=== PATIENT | male | born 1935 | race Caucasian/White ===

== ENCOUNTER → 2016-03-18 | Outpatient (CLI) | payer OTHER, MEDICARE | LOC: MMPC 09:00 | PROVIDERS: ATTEND Nurse Practitioner Family | DX: Z79.01 Long term (current) use of anticoagulants (principal); Z51.81 Encounter for therapeutic drug level monitoring; I26.99 Other pulmonary embolism without acute cor pulmonale | CPT/HCPCS: 85610 ==

== ENCOUNTER → 2016-03-25 | Outpatient (CLI) | payer OTHER, MEDICARE | LOC: MMPC 10:00 | PROVIDERS: ATTEND Podiatrist Foot & Ankle Surgery | DX: L84 Corns and callosities (principal); L97.522 Non-pressure chronic ulcer of other part of left foot with fat layer exposed; I73.9 Peripheral vascular disease, unspecified; M20.32 Hallux varus (acquired), left foot; E11.40 Type 2 diabetes mellitus with diabetic neuropathy, unspecified; E11.621 Type 2 diabetes mellitus with foot ulcer | CPT/HCPCS: 11055 ×2; 99212; G0463 ==

== ENCOUNTER → 2016-04-08 | Outpatient (CLI) | payer OTHER, MEDICARE | LOC: MMPC 10:00 | PROVIDERS: ATTEND Podiatrist Foot & Ankle Surgery | DX: M25.572 Pain in left ankle and joints of left foot (principal); L97.521 Non-pressure chronic ulcer of other part of left foot limited to breakdown of skin; Q66.7 Congenital pes cavus; M20.32 Hallux varus (acquired), left foot; I73.9 Peripheral vascular disease, unspecified; E11.9 Type 2 diabetes mellitus without complications | CPT/HCPCS: 99213; G0463 ==

== ENCOUNTER → 2016-04-15 | Outpatient (CLI) | payer OTHER, MEDICARE | LOC: MMPC 09:00 | PROVIDERS: ATTEND Nurse Practitioner Family | DX: Z79.01 Long term (current) use of anticoagulants (principal); Z51.81 Encounter for therapeutic drug level monitoring; I26.99 Other pulmonary embolism without acute cor pulmonale | CPT/HCPCS: 85610 ==

== ENCOUNTER → 2016-06-03 | Outpatient (CLI) | payer OTHER, MEDICARE | LOC: MMPC 10:00 | PROVIDERS: ATTEND Podiatrist Foot & Ankle Surgery | DX: E11.40 Type 2 diabetes mellitus with diabetic neuropathy, unspecified (principal); Q66.7 Congenital pes cavus; M20.42 Other hammer toe(s) (acquired), left foot; M20.41 Other hammer toe(s) (acquired), right foot; M20.30 Hallux varus (acquired), unspecified foot; L84 Corns and callosities ==

== ENCOUNTER 2016-06-07 18:05 | Emergency (ER) | payer OTHER, MEDICARE ==
[2016-06-07] MEDS ORDERED: MORPHINE SULFATE 2 MG/1 ML IVP ONE (18:29)
[2016-06-07] MEDS ORDERED: KETOROLAC 15 MG/1 ML VIAL IVP ONE (18:29)
[2016-06-07] MEDS ORDERED: NORMAL SALINE 10 ML SYRINGE FLUSH IVP PRN (18:29)
--- NOTE | 2016-06-07 18:36 | PDOC ---
Chest Pain HPI - General Chief Complaint: Chest Pain Stated Complaint: CHEST PAIN Date Seen by Provider: 06/07/16 Time Seen by Provider: 18:32 - History of Present Illness Initial Comments: Patient is a very nice 80-year-old gentleman with known history of coronary artery disease among other multiple medical issues who presents to the emergency department today complaining of an episode of sharp stabbing left- sided chest pain that occurred right under his ribs and he thinks he may have had some left-sided arm symptoms accompanied with this. This is a fairly short- lived episode and currently here he is not having substantial active chest pain unless he takes a deep breath where he can feel that pain again. He was not doing anything particularly difficult or having any substantial exertion. He had heart catheterization about 13 years ago but then again a few years ago had repeat cardiac catheterization that was still benign status post his previous stenting. He is not having really any chest pain actively here right now. He denies any substantial GERD today. - Patient Home Medications Home Medications: Home Medications Omeprazole 20 mg PO DAILY cap 06/12/14 Albuterol Sulfate [Ventolin Hfa] 1 - 2 puff INH Q4-6H #1 inhaler 09/23/14 Budesonide/Formoterol Fumarate [Symbicort] 2 puff INH BID #2 inh 03/27/15 Albuterol Sulfate 1 each NEB Q4-6H PRN #90 vial 12/31/15 Aspirin 81 mg PO DAILY tab 12/31/15 Clopidogrel Bisulfate [Plavix] 75 mg PO DAILY #90 tablet 12/31/15 Metformin HCl 1 tab PO BID #60 tab 12/31/15 Trazodone HCl 3 tab PO QHS PRN #90 tab 12/31/15 Atorvastatin Calcium 1 tab PO DAILY #30 tab 01/23/16 Collagenase Ointment [Santyl Ointment] 30 gm TOPICAL QD #1 tube 03/18/16 Warfarin Sodium 5 - 7.5 mg PO DAILY #100 tab 05/12/16 Lisinopril 2.5 mg PO DAILY 06/07/16 - Patient Allergies Allergies/Adverse Reactions: Allergies Allergy/AdvReac Type Severity Reaction Status Date / Time silver Allergy HIVES Verified 06/07/16 18:17 [From Tegaderm AG Mesh] Sulfa (Sulfonamide AdvReac Intermediate VOMITING Verified 06/07/16 18:17 Antibiotics) tape AdvReac HIVES Uncoded 06/07/16 18:17 Past Medical History - heen HEENT History: Cataracts, Other (please comment) Additional HEENT History: WEARS GLASSES Cardiovascular History: Hypertension, CAD, Hyperlipidemia Additional Cardiovasular History: CARDIAC STENTS X3 Respiratory History: Asthma, COPD, Shortness of Breath, Pneumonia, Home Oxygen Use, Other (please comment) Additional Respiratory History: IDEOPATHIC PULMONARY FIBROSIS. 2 L OCCASIONALLY Gastrointestinal History: GERD, Diverticulitis, Hiatal Hernia, Other (please comment) Additional Gastrointestinal History: COLON RESECTION IN Genitourinary History: Denies History Endocrine History: Type 2 Diabetes (oral) Musculoskeletal History: Arthritis, Back Pain, Muscle Weakness, Limited ROM, Joint Pain, Physical Limitation Prosthesis or Implant: No Additional Musculoskeletal History: RIGHT ANKLE FUSED, LEFT ACHILES TENDON TEAR. 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 History of Other Communicable Diseases: No Alcohol Use: Occasionally Substance Use Type: None Previous Surgical History: Yes Type / Date of Surgery: ankle fusioncolon resectionappendectomydiscitiscataractsLEFT ROTATOR CUFF, CHOLECYSTECTOMY, CARDIAC STENTS X3 Anesthesia Reactions: No Malignant Hyperthermia: No Significant Family History: Cancer Additional Family History: father of esophageal ca Past Medical History Reviewed: Reviewed - No Changes ROS - Limitations ROS Limitations: No Limitations Constitution: REPORTS: Denies Symptoms Respiratory: REPORTS: Denies Resp Symptoms Neurological: REPORTS: Denies Neuro Symptoms Chest Pain PE - General Appearance General Appearance: REPORTS: Alert, Cooperative, No Acute Distress - HEENT HEENT: POSITIVE: Head Inspection Nml, Eyes Inspection Nml - Neck Neck: REPORTS: Normal Inspection - Respiratory Respiratory: REPORTS: No Respiratory Distress, Breath Sounds Normal - Cardiovascular Cardiovascular: REPORTS: Regular Rate and Rhythm, Heart Sounds Normal - Abdomen Abdomen: Soft: (All Quadrants), Normal Bowel Sounds: (All Quadrants), Denies Tenderness: (All Quadrants) - Skin Skin: REPORTS: Intact, Normal For Race, Warm - Neurological / Psychological Neurological: POSITIVE: Affect Apporpriate, Oriented X3 Chest Pain Progress - Results Reviewed by me Xrays/CTs/US Reviewed by me: Yes Radiology Findings: CT scan of the chest shows no pulmonary embolism no acute infection or other concerning findings. Chest x-ray reviewed and benign Lab Results Reviewed: Yes Lab Results:: Laboratory Results 06/07/16 Range/Units 17:45 WBC 9.19 (4.8-10.8) 10^3/uL RBC 4.98 (4.70-6.10) 10^6/uL Hgb 13.4 L (14.0-18.0) g/dL Hct 40.6 L (42.0-52.0) % MCV 81.5 (80-90) FL MCH 26.9 L (27-31) PG MCHC 33.0 (33-37) g/dL RDW Std Deviation 51.1 H (39-50) fL RDW Coeff of Yasmany 17.3 H (11.5-14.5) % Plt Count 249 (140-350) 10*3/uL MPV 8.7 (7.4-12.2) FL Immature Gran % (Auto) 0.2 (0-5) % Neut % (Auto) 51.2 (50-80) % Lymph % (Auto) 34.1 (10-50) % [place] % (Auto) 10.2 (5-15) % Eos % (Auto) 3.3 (0-8) % Baso % (Auto) 1.0 (0-1) % Immature Gran # (Auto) 0.02 10*3/UL Neut # (Auto) 4.71 10*3/UL Lymph # (Auto) 3.13 10*3/uL [place] # (Auto) 0.94 H (0.3-0.8) 10*3/UL Eos # (Auto) 0.30 10*3/UL Baso # (Auto) 0.09 10*3/UL WBC Morphology Comment Normal morphology (NORM) Plt Morphology Comment Normal morphology (NORM) RBC Morph Comment Normal morphology (NORM) ESR 7 (0-15) MM/HR PT 28.1 H (9.7-11.4) secs INR 2.67 (0.00-5.90) N/A D-Dimer 1.55 H (0.00-0.59) mg/L Sodium 135 (135-145) meq/L Potassium 5.1 (3.8-5.2) meq/L Chloride 103 (98-112) meq/L Carbon Dioxide 20 L (23-33) meq/L Anion Gap 12 (5-20) BUN 28 H (7-22) mg/dL Creatinine 1.2 (0.70-1.50) mg/dL Estimated GFR (>60 ml/min/1.73m(2)) BUN/Creatinine Ratio 23.33 H (6-20) Glucose 77 L (78-110) mg/dL Calculated Osmolality 284.0 (267-292) mOsm/kg Calcium 9.2 (8.7-10.7) mg/dL Total Bilirubin 0.7 (0.3-1.2) mg/dL AST 25 (21-57) IU/L ALT 27 (21-72) IU/L Alkaline Phosphatase 62 (38-126) IU/L Troponin I < 0.012 (< 0.040) ng/mL C-Reactive Protein < 0.5 (0.0-0.9) mg/dL NT-Pro-B Natriuret Pep 106 (0-450) PG/ML Total Protein 7.2 (6.1-8.0) g/dL Albumin 3.7 (3.5-4.8) g/dL Globulin 3.5 (2.50-4.10) g/dL Albumin/Globulin Ratio 1.00 L (1.3-2.0) mg/g Lipase 98 (23-300) IU/L EKG Interpretation:: POSITIVE: Other (Sinus rhythm with bradycardia) - Patient's Progress MDM / ED Course: Patient had chest pain that was resolved by the time he got here. He had negative troponin however his d-dimer came back elevated despite being anticoagulated. His INR was normal. Ultimately CT scan of his chest was obtained which does not show any substantial cause for chest pain or pleurisy. He does have some pain with deep breathing that is persisting. It's unclear if he does have maybe some mild pleurisy or simply musculoskeletal chest pain. At any rate I don't think this is cardiac and certainly isn't pulmonary embolism. We will go ahead and let him go home and be seen in the clinic in the very near future. He also had some bradycardia down into the 40s at times while he was here and he is sent home with a Holter monitor. He believes metoprolol had recently been stopped for him and that he is not on it I've asked that he confirm that he is not on metoprolol and if he is seen to stop it. He has been a follow-up and discuss these issues with his primary care provider. Patient Care Time - Estimated PCT Patient Care Time (In Minutes): 45 Vital Signs - Recent Vital Signs Vital Signs: Vital Signs (Last 8 hours) Temp Pulse Resp BP Pulse Ox 06/07/16 18:05 97.8 F 55 L 20 155/76 95 - VS Reviewed Vital Signs Reviewed: Yes Discharge Clinical Impression: Chest wall pain, Pleurisy, Bradycardia Discharge Disposition: Discharged to Home Condition: Fair Patient Instructions Given at Discharge: Noncardiac Chest Pain (ED) Additional Instructions: Your CAT scan looked good without any evidence of blood clot. You have benign- appearing labs and I believe your chest pain is related either to nerve pinching or musculoskeletal spasm. Of note your heart rate did go down into the 40s at times while you were here in the emergency department. I would like for you to follow-up with your regular doctor and discuss this in the next few days. If you become substantially dizzy lightheaded or have other issues before this appointment do not hesitate to come back to the emergency department. Follow Up With: IRAIS MORA [Primary Care Provider] -
[2016-06-07 18:37] LABS: BASOPHILS # (AUTO) 0.09 10*3/UL; EOSINOPHILS % (AUTO) 3.3 % (0-8); HEMATOCRIT 40.6 % (42.0-52.0); HEMOGLOBIN 13.4 g/dL (14.0-18.0); LYMPHOCYTES # (AUTO) 3.13 10*3/uL; MEAN CORPUSCULAR HEMOGLOBIN 26.9 PG (27-31); MEAN CORPUSCULAR VOLUME 81.5 FL (80-90); MEAN PLATELET VOLUME 8.7 FL (7.4-12.2); MONOCYTES # (AUTO) 0.94 10*3/UL (0.3-0.8); MONOCYTES % (AUTO) 10.2 % (5-15); NEUTROPHILS # (AUTO) 4.71 10*3/UL; NEUTROPHILS % (AUTO) 51.2 % (50-80); PLATELET MORPHOLOGY COMMENT NORMAL MORPHOLOGY (NORM); RBC MORPHOLOGY COMMENT NORMAL MORPHOLOGY (NORM); RED BLOOD COUNT 4.98 10^6/uL (4.70-6.10); WBC MORPHOLOGY COMMENT NORMAL MORPHOLOGY (NORM)
[2016-06-07 18:43] VITALS: RESP 20; TEMP 97.8
[2016-06-07 18:44] LABS: BUN/CREATININE RATIO 23.33 (6-20); CALCIUM 9.2 mg/dL (8.7-10.7); SERUM ALBUMIN 3.7 g/dL (3.5-4.8)
[2016-06-07 19:32] LABS: ERYTHROCYTE SEDIMENTATION RATE 7 MM/HR (0-15)
[2016-06-07] MEDS ORDERED: Sodium Chloride 0.9% 1,000 ML PRIMARY IV ONE (19:58)
--- NOTE | 2016-06-07 21:15 | DI ---
PA /LATERAL CHEST X-RAY, 06/07/2016 6:29 PM : Clinical History: Chest pain. Previous Exam: None at this facility. There is no acute soft tissue or bony abnormality. Heart size is normal. There are either vascular ca lcifications or coronary artery stents and almost the entire length of the LAD in the proximal portio n of the left circumflex artery. Chronic bilateral infiltrates are present, unchanged from the previo us exam and these would be most consistent with chronic aspiration pneumonitis. There is centrilobula r emphysema. Mediastinal structures are normal. There are no pulmonary nodules. Readin. There are no acute infiltrates or effusions. Chronic bilateral infiltrates are present in a patte rn and appearance consistent with chronic aspiration pneumonitis. 2. Centrilobular emphysema. 3. Coronary artery disease.
--- NOTE | 2016-06-07 21:32 | DI ---
HISTORY: Acute onset chest pain and weakness. Elevated d-dimer. COMPARISON: None available. TECHNIQUE: CT angiogram of the chest was performed. The images were sent for interpretation. FINDINGS: There is calcification of the aortic knuckle. There is prominence of the pulmonary trunk. There are no focal filling defects noted within the pulmonary arteries to suggest pulmonary embolis m. There are small mediastinal lymph nodes. There is no hilar, or axillary adenopathy. There is no pleural or pericardial effusion. The trachea, main, and segmental bronchi demonstrate no endobronchial lesions. Mild irregularity of the right posterior trachea on series 4 image 39 could represent adherent mucus. There is panlobular diffuse emphysematous change. Scattered linear-appearing opacities in the right lung apex (series 4 image 20) favor atelectasis, sc arring, or fibrosis. There is diffuse thickening of the interstitium at the lung bases reminiscent of atelectasis, fibrosi s, or scarring. Evolving infection, possibly viral, could have a similar appearance, but is less favored. There is prior cholecystectomy. Limited sections of the upper abdomen demonstrate no acute findings. There is no destructive osseous abnormality. There is narrowing of the T12 vertebral body with appro ximately 60% loss of height reminiscent of a compression fracture. IMPRESSION: 1. There is calcification of the aortic knuckle. There is prominence of the pulmonary trunk. 2. There are no focal filling defects noted within the pulmonary arteries to suggest pulmonary emboli sm. 3. Mild irregularity of the right posterior trachea on series 4 image 39 could represent adherent muc us. 4. There is panlobular diffuse emphysematous change. 5. Scattered linear-appearing opacities in the right lung apex (series 4 image 20) favor atelectasis, scarring, or fibrosis. 6. Diffuse thickening of the interstitium at the lung bases reminiscent of atelectasis, fibrosis, or scarring. Evolving infection, possibly viral, could have a similar appearance, but is less favored. 7. Status post cholecystectomy. 8. There is narrowing of the T12 vertebral body with approximately 60% loss of height reminiscent of a compression fracture. NOTIFICATION: The above findings were phoned to EDER Landis in the ER Department on 06/07/2016 at 11:39 PM EST.
--- NOTE | 2016-06-08 09:35 | EKG ---
[address] [place] [address] Measurements Intervals [place] Rate: 55 P: -7 MI: 172 QRS: 34 QRSD: 85 T: 47 QT: 424 QTc: 412 Interpretive Statements SINUS BRADYCARDIA WITH OCCASIONAL ECTOPIC ATRIAL PREMATURE COMPLEXES Compared to ECG 03/11/2015 07:40:09 Sinus rhythm no longer present ST (T wave) deviation no longer present Electronically Signed On 06-08-16 12:02:59 MDT by Ken Carmona [email or web address]
--- NOTE | 2016-06-11 14:06 | HOLTER ---
Interpretive Statements Pushed the button, but did not return a diary. Forty eight hour holter monitor done for bradycardia. No diary was kept but patient indicated symptoms on multiple occasions. There were [id number] beats recorded, [id number] being normal. The slowest heart was 41 in late afternoon with average rate of 55 and fastest rate of 106. There were 409 PACs with 366 singlets, 15 pairs and 3 runs of ectopic atrial tachyardia to rate of 106 the longest of 7 beats. There were 371 VPCs with 362 singlets and one couplet. Computer read VT was due to artifact. The longest run of bradycardia lasted 37 minutes at rate of 41. The longest pause of 2 seconds occurred post VPC during bradycardia and was due to compensatory pause. No diagnostic ST depression was seen, however, 1mm ST elevation was seen intermittently without symptoms or relatd to heart rate. Multiple episodes of indicated symtoms by the patient were noted but not related to heart rate of pauses. IMP: Abnormal holter study with occasional PACs and VPCs with normal heart rate for age and no prolonged pauses. No correlation of indicated symptoms with heart rate. No significant pauses. No diary returned. Electronically Signed On 06-11-16 18:35:34 MDT by Ken Carmona [id number]
== END 2016-06-07 22:53 | disposition home or self-care (01) ==
LOC: ER 18:05
DX: R07.89 Other chest pain (principal); R09.1 Pleurisy; R00.1 Bradycardia, unspecified; E11.9 Type 2 diabetes mellitus without complications; J43.2 Centrilobular emphysema; I25.10 Atherosclerotic heart disease of native coronary artery without angina pectoris; Z79.01 Long term (current) use of anticoagulants
CPT/HCPCS: 71020; 71275; 80053; 83690; 83880; 84484; 85025; 85379; 85610; 85652; 86140; 93005; 93010; 93225; 93226; 93227; 96374; 99284; J1885

== ENCOUNTER → 2016-06-10 | Outpatient (CLI) | payer OTHER, MEDICARE | LOC: MMPC 09:00 | PROVIDERS: ATTEND Internal Medicine | DX: Z79.01 Long term (current) use of anticoagulants (principal); Z51.81 Encounter for therapeutic drug level monitoring; I26.99 Other pulmonary embolism without acute cor pulmonale | CPT/HCPCS: 85610 ==

== ENCOUNTER → 2016-06-28 | Outpatient (CLI) | payer OTHER, MEDICARE ==
[2016-06-28 10:17] LABS: HEMOGLOBIN A1C 5.65 % (4.2-6.0)
[2016-06-28 10:40] LABS: CREATININE, URINE 224.7 MG/DL (15-500)
[2016-06-28 10:46] LABS: BUN/CREATININE RATIO 17.5 (6-20); CALCIUM 9.4 mg/dL (8.7-10.7); CHOL/HDL RATIO 2.86 RATIO (0-4.0); LDL CHOLESTEROL,CALCULATED 54.4 mg/dL; SERUM ALBUMIN 3.6 g/dL (3.5-4.8)
== END ==
LOC: MOB LAB 09:13
PROVIDERS: ATTEND Internal Medicine
DX: E11.9 Type 2 diabetes mellitus without complications (principal); E78.5 Hyperlipidemia, unspecified; I10 Essential (primary) hypertension
CPT/HCPCS: 80053; 80061; 82043; 82550; 83036

== ENCOUNTER → 2016-06-30 | Outpatient (CLI) | payer OTHER, MEDICARE | LOC: MMPC 11:11 | PROVIDERS: ATTEND Internal Medicine | DX: J44.9 Chronic obstructive pulmonary disease, unspecified (principal); E78.5 Hyperlipidemia, unspecified; I10 Essential (primary) hypertension; Z95.5 Presence of coronary angioplasty implant and graft; Z87.39 Personal history of other diseases of the musculoskeletal system and connective tissue | CPT/HCPCS: 99214 ==

== ENCOUNTER → 2016-07-01 | Outpatient (CLI) | payer OTHER, MEDICARE ==
--- NOTE | 2016-07-01 11:46 | DI ---
MRI LUMBAR SPINE SCAN WITHOUT IV CONTRAST, 07/01/2016 9:35 AM: Clinical History: History of discitis. Previous Exam: None. Technique: Sagittal and axial T2 weighted; sagittal T1 weighted and T2 STIR; and axial PD. The lumbar vertebral bodies are of normal height and size. There is an old compression fracture of T1 2 with loss of height less than 50%. There is displacement posteriorly into the canal of the superior and posterior aspect of the T12 vertebral body. The patient is status post laminectomies from L2-L5. The L4 and L5 vertebral bodies are fused. There is disc space narrowing at all of the remaining lumb ar disc spaces, and these show desiccation change. The cord terminates at T12 and the conus medullari s is normal. The T10-11 disc space is normal. T11-12 has a bulging but not herniated disc without can al or neural foraminal stenosis. The posterior displacement of the superior and posterior aspect of T 12 does not compromise the canal diameter. T12-L1 and L1-2 disc spaces are normal. L2-3 and L3-4 have circumferentially bulging but not herniated discs without canal or neural foraminal stenosis. Both l evels show degenerative arthritic changes of the apophyseal joints. The L4-5 disc space shows no sánchez l or neural foraminal stenosis. Both apophyseal joints are fused. L5-S1 has a circumferentially bulgi ng but not herniated disc. There is no canal stenosis or left neural foraminal stenosis. There is rig ht neural foraminal stenosis but the nerve root still exits appropriately. The nerve roots between th e L1-2 disc space to the L5 vertebral body are in an abnormal position. This is suspicious for arachn oiditis. Readin. Status post laminectomies from L2-L5 with anterior fusion at L4-5. 2. There are bulging but not herniated discs without canal or significant neural foraminal stenosis at T11-12, L2-3, and L5-S1. There is no canal or neural foraminal stenosis at L4-5. 3. 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 4. The T10-11 and T12-L1 and L1-2 disc spaces are normal.
== END ==
LOC: MRI 09:28
PROVIDERS: ATTEND Internal Medicine
DX: Z87.39 Personal history of other diseases of the musculoskeletal system and connective tissue (principal); M47.815 Spondylosis without myelopathy or radiculopathy, thoracolumbar region; M47.817 Spondylosis without myelopathy or radiculopathy, lumbosacral region
CPT/HCPCS: 72148

== ENCOUNTER → 2016-07-07 | Outpatient (CLI) | payer OTHER, MEDICARE | LOC: MMPC 10:00 | PROVIDERS: ATTEND Physician Assistant | DX: M47.816 Spondylosis without myelopathy or radiculopathy, lumbar region (principal); M51.36 Other intervertebral disc degeneration, lumbar region; Z98.890 Other specified postprocedural states | CPT/HCPCS: 99204; G0463 ==

== ENCOUNTER → 2016-07-08 | Outpatient (CLI) | payer OTHER, MEDICARE | LOC: MMPC 09:00 | PROVIDERS: ATTEND Internal Medicine | DX: Z79.01 Long term (current) use of anticoagulants (principal); Z51.81 Encounter for therapeutic drug level monitoring; I26.99 Other pulmonary embolism without acute cor pulmonale | CPT/HCPCS: 85610 ==

== ENCOUNTER 2016-07-15 08:52 | Day surgery (SDC) | payer OTHER, MEDICARE ==
[2016-07-15] MEDS ORDERED: Iopamidol Inj 61% 50 ML VIAL IV ONE (09:00)
[2016-07-15] MEDS ORDERED: BUPivacaine Inj 0.25% PF - 10ml vial IV ONE (09:00)
[2016-07-15] MEDS ORDERED: TRIAMCINOLONE ACETONIDE 40 MG/1 ML IM ONE (09:00)
--- NOTE | 2016-07-15 10:04 | GEN.OPNOTE ---
Facet Injection Procedure: Facet Injection with Local Anesthetic and Steriod Procedure Code - Neurosurgery: 16030 : C/T Spine Facet/Med, 1st Surgeon: Yung Jasso -: Consent: Rationale for procedure, nature of procedure, possible risks and benefits were discussed with the patient. Risks including allergic reaction to medications, known effects of steroid medications including transient elevations in blood sugar with aggravation of pre-existing diabetes and remote risk of aseptic necrosis of the hip. Infection or bleeding with potential risk of neurologic injury with weakness, paralysis or were all reviewed with the patient who wished to proceed. Anesthesia, sedation: No intravenous access or sedation was used. Physiologic monitoring of pulse and oxygen saturation was utilized. Procedure: The patient was placed prone on the operating room table, prepped with Chloroprep and sterilely draped. The skin was anesthetized with 1% Buffered Xylocaine. Under fluoroscopic control a 22-gauge needle was advanced L45 facet joint on the [right]. Omnipaque was injected under real-time fluoroscopy demonstrating an facet arthrogram. Following this 1 ml of a mixture of kenalog(10mg/ml) and Ropivacaine was injected. AP and lateral images of the final needle placement was obtained. The needle was removed and the patient returned to the post procedure recovery room where they were monitored for any side effects. The same was done on the left. Pain assessment: Preprocedure pain []/10, post procedure pain []/10. Discharge instructions: Patient was given a pain log to be filled out and returned. A delayed response to the steroids of 2-5 days was discussed.
[2016-07-15 10:13] VITALS: RESP 17; TEMP 97.6
== END 2016-07-15 10:12 | disposition home or self-care (01) ==
LOC: SDSC 08:52
PROVIDERS: ATTEND Pain Medicine Interventional Pain Medicine
DX: M47.816 Spondylosis without myelopathy or radiculopathy, lumbar region (principal)
CPT/HCPCS: 76000

== ENCOUNTER → 2016-07-22 | Outpatient (CLI) | payer OTHER, MEDICARE | LOC: MMPC 09:00 | PROVIDERS: ATTEND Internal Medicine | DX: Z79.01 Long term (current) use of anticoagulants (principal); Z51.81 Encounter for therapeutic drug level monitoring; I26.99 Other pulmonary embolism without acute cor pulmonale | CPT/HCPCS: 85610 ==

== ENCOUNTER → 2016-07-29 | Outpatient (CLI) | payer OTHER, MEDICARE | LOC: MMPC 09:00 | PROVIDERS: ATTEND Internal Medicine | DX: Z79.01 Long term (current) use of anticoagulants (principal); Z51.81 Encounter for therapeutic drug level monitoring; I26.99 Other pulmonary embolism without acute cor pulmonale | CPT/HCPCS: 85610 ==

== ENCOUNTER → 2016-08-12 | Outpatient (CLI) | payer OTHER, MEDICARE | LOC: MMPC 09:00 | PROVIDERS: ATTEND Internal Medicine | DX: Z79.01 Long term (current) use of anticoagulants (principal); Z51.81 Encounter for therapeutic drug level monitoring; I26.99 Other pulmonary embolism without acute cor pulmonale | CPT/HCPCS: 85610 ==

== ENCOUNTER → 2016-08-30 | Outpatient (CLI) | payer OTHER, MEDICARE ==
[2016-08-30 19:29] LABS: HEMOGLOBIN A1C 5.43 % (4.2-6.0)
[2016-08-30 19:57] LABS: FREE T4 (FREE THYROXINE) 1.34 ng/dL (0.93-1.71)
== END ==
LOC: MOB LAB 14:24
PROVIDERS: ATTEND Internal Medicine
DX: E11.9 Type 2 diabetes mellitus without complications (principal); R63.4 Abnormal weight loss; I10 Essential (primary) hypertension; J44.9 Chronic obstructive pulmonary disease, unspecified; R42 Dizziness and giddiness; Z95.5 Presence of coronary angioplasty implant and graft; Z86.711 Personal history of pulmonary embolism
CPT/HCPCS: 36415; 83036; 84439; 84443; 86140

== ENCOUNTER → 2016-09-09 | Outpatient (CLI) | payer OTHER, MEDICARE | LOC: MMPC 09:00 | PROVIDERS: ATTEND Internal Medicine | DX: Z79.01 Long term (current) use of anticoagulants (principal); Z51.81 Encounter for therapeutic drug level monitoring; Z86.711 Personal history of pulmonary embolism | CPT/HCPCS: 85610 ==

== ENCOUNTER → 2016-09-16 | Outpatient (CLI) | payer OTHER, MEDICARE | LOC: MMPC 09:00 | PROVIDERS: ATTEND Internal Medicine | DX: Z79.01 Long term (current) use of anticoagulants (principal); Z51.81 Encounter for therapeutic drug level monitoring; Z86.711 Personal history of pulmonary embolism | CPT/HCPCS: 85610 ==

== ENCOUNTER → 2016-09-21 | Outpatient (CLI) | payer OTHER, MEDICARE | LOC: MMPC 09:00 | DX: L98.8 Other specified disorders of the skin and subcutaneous tissue (principal) | CPT/HCPCS: 99212; G0463 ==

== ENCOUNTER 2016-10-10 19:49 | Emergency (ER) | payer OTHER, MEDICARE ==
[2016-10-10] MEDS ORDERED: DIPH,PERTUSS,TET(ADACEL) VAC/PF 0.5 ML (Tdap) IM ONE (19:56)
[2016-10-10] MEDS ORDERED: ONDANSETRON 4 MG/2 ML VIAL ONE (19:56)
[2016-10-10] MEDS ORDERED: Amoxicill/Clav 875/125mg Tab 1 TAB TAB PO ONE (19:56)
[2016-10-10] MEDS ORDERED: ONDANSETRON 4 MG/2 ML VIAL IVP ONE (19:56)
[2016-10-10] MEDS ORDERED: Sodium Chloride 0.9% 1,000 ML PRIMARY IV ONE (19:56)
[2016-10-10] MEDS ORDERED: MORPHINE SULFATE 4 MG/1 ML IVP ONE (19:56)
--- NOTE | 2016-10-10 20:02 | PDOC ---
Animal Bite HPI - General Chief Complaint: Animal Bite Stated Complaint: dog bite Date Seen by Provider: 10/10/16 Time Seen by Provider: 19:58 Source: POSITIVE: Patient Exam Limitations: POSITIVE: No limitations Nurse's Notes Reviewed & Considered: Yes - History of Present Illness Initial Comments: Patient comes in complaining of dog bite to the left lower extremity. Patient got between 2 pets at home who were fighting one of which was a [place] retriever. The [place] retriever bit him on the left lower leg. There are open bites, hematomas, and oozing of blood. Patient is on Plavix and warfarin. He denies any other injuries. Injury occurred approximately 2 hours prior to presentation here in the emergency department. Have you received a tetanus shot in the past 10 years?: Unknown Body Location Affected: REPORTS: Lower Extremity (L) Timing: REPORTS: Abrupt Duration: 1-3 hours Location at Time of Onset: REPORTS: Home Severity: Moderate Quality: REPORTS: "Pain" Animal: REPORTS: Dog, Family Pet Appearance of Animal: REPORTS: Appeared Healthy Animal Immunization Status: POSITIVE: Up to Date Observation/Capture: POSITIVE: Can be Observed x 10 Days Context of Attack: REPORTS: Animals Fighting Severity of Attack: POSITIVE: Bitten, Moderate Location of Injury: POSITIVE: Left Lower Extremity Associated Symptoms: REPORTS: Denies Symptoms Any Prior Injuries Related to Current Complaint?: No - Patient Home Medications Home Medications: Home Medications Albuterol Sulfate [Ventolin Hfa] 1 - 2 puff INH Q4-6H #1 inhaler 09/23/14 Budesonide/Formoterol Fumarate [Symbicort] 2 puff INH BID #2 inh 03/27/15 Aspirin 81 mg PO DAILY tab 12/31/15 Warfarin Sodium 5 - 7.5 mg PO DAILY #100 tab 05/12/16 Albuterol Sulfate 1 each NEB Q4-6H PRN #90 vial 06/30/16 Atorvastatin Calcium 1 tab PO DAILY #90 tab 06/30/16 Budesonide/Formoterol Fumarate [Symbicort] Sample #3 06/30/16 Clopidogrel Bisulfate [Plavix] 1 tab PO DAILY #90 tablet 06/30/16 Lisinopril 1 tab PO DAILY #90 tab 06/30/16 Tizanidine HCl [Zanaflex] 1 cap PO TID PRN #90 cap 06/30/16 Trazodone HCl 3 tab PO QHS PRN #90 tab 06/30/16 Apixaban [Eliquis] Sample #1 07/12/16 - Patient Allergies Allergies/Adverse Reactions: Allergies Allergy/AdvReac Type Severity Reaction Status Date / Time silver Allergy HIVES Unverified 09/21/16 11:06 [From Tegaderm AG Mesh] Sulfa (Sulfonamide AdvReac Intermediate VOMITING Unverified 09/21/16 11:06 Antibiotics) tape AdvReac HIVES Uncoded 06/07/16 18:17 Past Medical History - heen HEENT History: Cataracts, Other (please comment) Additional HEENT History: WEARS GLASSES Cardiovascular History: Hypertension, CAD, Hyperlipidemia Additional Cardiovasular History: CARDIAC STENTS X3 Respiratory History: Asthma, COPD, Shortness of Breath, Pneumonia, Home Oxygen Use, Other (please comment) Additional Respiratory History: IDEOPATHIC PULMONARY FIBROSIS. 2 L OCCASIONALLY Gastrointestinal History: GERD, Diverticulitis, Hiatal Hernia, Other (please comment) Additional Gastrointestinal History: COLON RESECTION IN Genitourinary History: Denies History Endocrine History: Type 2 Diabetes (oral) Musculoskeletal History: Arthritis, Back Pain, Muscle Weakness, Limited ROM, Joint Pain, Physical Limitation Prosthesis or Implant: No Additional Musculoskeletal History: RIGHT ANKLE FUSED, LEFT ACHILES TENDON TEAR. 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 History of Other Communicable Diseases: No Alcohol Use: Occasionally Substance Use Type: None Previous Surgical History: Yes Type / Date of Surgery: ankle fusioncolon resectionappendectomydiscitiscataractsLEFT ROTATOR CUFF, CHOLECYSTECTOMY, CARDIAC STENTS X3 Anesthesia Reactions: No Malignant Hyperthermia: No Significant Family History: Cancer Additional Family History: father of esophageal ca ROS - Limitations ROS Limitations: No Limitations Constitution: REPORTS: Denies Symptoms Cardiovascular: REPORTS: Denies Cardiac Symptoms Respiratory: REPORTS: Denies Resp Symptoms Neurological: REPORTS: Denies Neuro Symptoms Gastrointestinal: REPORTS: Nausea Endocrine: REPORTS: Denies Symptoms Musculoskeletal: REPORTS: Lower Extremity Swelling, Muscle Aches Genitourinary: REPORTS: Denies Symptoms Eyes: REPORTS: Denies Symptoms ENT: REPORTS: Denies Symptoms Skin: REPORTS: Other (Puncture wounds left lower extremity) Lympathic: REPORTS: Denies Lympathic Symptoms Immunologic: POSITIVE: Denies Symptoms Psychiatric: POSITIVE: Denies Psych Symptoms Animal Bite Physical Exam - General Appearance General Appearance: REPORTS: Alert, Cooperative, No Acute Distress - HEENT HEENT: POSITIVE: Head Inspection Nml, Eyes Inspection Nml, Ears Inspection Nml, Nose Inspection Nml, Oral/Dental Inspect. Nml, Pharynx Inspect. Nml, PERRL, EOMI - Neck Neck: POSITIVE: Normal Inspection, No Apparent Injury - Respiratory Respiratory: POSITIVE: No Respiratory Distress, Breath Sounds Normal, Chest Non- Tender - Cardiovascular Cardiovascular: POSITIVE: Regular Rate and Rhythm, Heart Sounds Normal, Equal Pulses, Strong Pulses Peripheral Pulses: Dorsalis-pedis (L): 3+ - Chest Chest: POSITIVE: Non Tender - Abdomen Abdomen: Soft: (All Quadrants), Normal Bowel Sounds: (All Quadrants), Denies Tenderness: (All Quadrants), No Splenomegaly: (All Quadrants), No Hepatomegaly: (All Quadrants), No Guarding: (All Quadrants), No Rebound: (All Quadrants), No Palpable Pulse: (All Quadrants), No Palpabale Mass: (All Quadrants), No Distention: (All Quadrants), No Rigidity: (All Quadrants) - Back Back: POSITIVE: Normal Inspection, No Apparent Injury - Skin Skin: POSITIVE: Normal For Race, Warm, Dry, Puncture Wound (Multiple puncture wounds left lower extremity with hematoma present) - Extremities Extremity Assessment: Non-Tender: (RUE), (LUE), (RLE), Normal ROM: (ALL), No Edema: (RLE), (LUE), (RUE), Normal Inspection: (RUE), (LUE), (RLE), No Swelling : (LLE), Pelvis Stable: (ALL), Normal Tendon Exam: (ALL), Tender: (LLE), Ecchymosis: (LLE), Swelling: (LLE), Laceration: (LLE) - Neuro/Vascular/Tendon Neuro/Vascular/Tendon: 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, 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 As 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, Motor Normal , Sensation Normal, No Vascular Compromise, ROM Normal - Psych Psych: POSITIVE: Mood Appropriate, Affect Appropriate - Wound Wound General Appearance: POSITIVE: Draining, Bleeding, Unapproximated Wound Cleaning/Irrigation: POSITIVE: Saline Irrigant, Betadine Procedures - Laceration/Wound Repair Did patient have a laceration repair: Yes Site of Laceration/Wound: Left lower leg Wound Length (cm): 2.5 Wound's Depth, Shape: Into subcutaneous tissue, Irregular Time of Suture Placement:: 20:58 Distal CMS: Yes Skin Prep: Betadine Prep Local Anesthesia Used - Indicate Amt Used in Comment: Lidocaine 1% with Epinephrine: Yes Irrigated w/ Saline (mL): 250 Wound Explored: No foreign body removed Wound Debrided: Minimal Wound Repaired With: Sutures single layer Suture Size/Type: 4:0, Prolene Number of Sutures: 3 Drain Placement: No Sterile Dressing Applied?: Yes Splint Applied?: No Sling Applied?: No Procedure Note:: After obtaining informed verbal consent skin was cleansed with Hibiclens and normal saline. Wound were draped in a sterile manner and 1% lidocaine with epinephrine was infiltrated into the largest of the wounds which measured approximately 1.5 cm and into the next largest which measured 1 cm. Total of 3 interrupted sutures were placed to a large and one on the small laceration. Wounds continued to ooze due to the patient's Plavix. Bacitracin, nonstick dressing, Kerlix gauze, and Coban were applied. Patient is encouraged to return to the emergency room on Tuesday for wound evaluation. He has instructions for suture removal in 7 days. He receives a prescription for Augmentin. Animal Bite Progress - Results Reviewed by me Xrays/CTs/US Reviewed by me: Yes Discussed with Radiologist: Yes Lab Results Reviewed: Yes Lab Results:: Laboratory Results 10/10/16 Range/Units 20:03 WBC 13.13 H (4.8-10.8) 10^3/uL RBC 4.88 (4.70-6.10) 10^6/uL Hgb 13.3 L (14.0-18.0) g/dL Hct 39.9 L (42.0-52.0) % MCV 81.8 (80-90) FL MCH 27.3 (27-31) PG MCHC 33.3 (33-37) g/dL RDW Std Deviation 48.4 (39-50) fL RDW Coeff of Yasmany 16.4 H (11.5-14.5) % Plt Count 261 (140-350) 10*3/uL MPV 8.5 (7.4-12.2) FL Immature Gran % (Auto) 0.2 (0-5) % Neut % (Auto) 67.7 (50-80) % Lymph % (Auto) 18.8 (10-50) % [place] % (Auto) 10.4 (5-15) % Eos % (Auto) 2.1 (0-8) % Baso % (Auto) 0.8 (0-1) % Immature Gran # (Auto) 0.03 10*3/UL Neut # (Auto) 8.88 10*3/UL Lymph # (Auto) 2.47 10*3/uL [place] # (Auto) 1.37 H (0.3-0.8) 10*3/UL Eos # (Auto) 0.28 10*3/UL Baso # (Auto) 0.10 10*3/UL WBC Morphology Comment Normal morphology (NORM) Plt Morphology Comment Normal morphology (NORM) RBC Morph Comment Normal morphology (NORM) PT 16.9 H (9.7-11.4) secs INR 1.59 (0.00-5.90) N/A Sodium 135 (135-145) meq/L Potassium 4.9 (3.8-5.2) meq/L Chloride 105 (98-112) meq/L Carbon Dioxide 19 L (23-33) meq/L Anion Gap 11 (5-20) BUN 28 H (7-22) mg/dL Creatinine 1.2 (0.70-1.50) mg/dL Estimated GFR (>60 ml/min/1.73m(2)) BUN/Creatinine Ratio 23.33 H (6-20) Glucose 88 (78-110) mg/dL Calculated Osmolality 284.0 (267-292) mOsm/kg Calcium 9.6 (8.7-10.7) mg/dL Total Bilirubin 0.7 (0.3-1.2) mg/dL AST 26 (21-57) IU/L ALT 22 (21-72) IU/L Alkaline Phosphatase 58 (38-126) IU/L Total Protein 7.2 (6.1-8.0) g/dL Albumin 3.8 (3.5-4.8) g/dL Globulin 3.4 (2.50-4.10) g/dL Albumin/Globulin Ratio 1.10 L (1.3-2.0) mg/g - Patient's Progress Pain Medication Addressed: POSITIVE: Yes Re-examine Time: 21:00 Status: POSITIVE: Improved MDM / ED Course: Patient was examined, an IV started, blood drawn and sent to the laboratory for studies, radiographic examination was obtained. Patient received IV morphine, normal saline, and Zofran. He received a tetanus update. He also received oral Augmentin. Findings: CBC shows white count of 13. INR is 1.5. Comprehensive metabolic panel is unremarkable. X-ray of his left tib-fib shows no acute osseous abnormalities. Assessment: Dog bite lacerations with repair. For procedure note please see above dictation. Her graft plan: Discharge home, Augmentin for 7 days, continue with your home Soma and trazodone. Return to the emergency room on Tuesday for wound evaluation. Rabies Vaccine Series Implemented: No - Consult Counseled: POSITIVE: Patient, Family, RE: Lab Results, RE: Radiology Results, RE : DX, RE: Need for F/U Patient Care Time - Estimated PCT Patient Care Time (In Minutes): 45 Vital Signs - VS Reviewed Vital Signs Reviewed: Yes Discharge Clinical Impression: Animal bite wound, Dog bite - wound Discharge Disposition: Discharged to Home Condition: Stable Patient Instructions Given at Discharge: Animal Bite (ED)
[2016-10-10 20:05] LABS: BASOPHILS % (AUTO) 0.8 % (0-1); EOSINOPHILS # (AUTO) 0.28 10*3/UL; EOSINOPHILS % (AUTO) 2.1 % (0-8); HEMATOCRIT 39.9 % (42.0-52.0); HEMOGLOBIN 13.3 g/dL (14.0-18.0); LYMPHOCYTES # (AUTO) 2.47 10*3/uL; MEAN CORPUSCULAR HEMOGLOBIN 27.3 PG (27-31); MEAN CORPUSCULAR HGB CONC 33.3 g/dL (33-37); MEAN CORPUSCULAR VOLUME 81.8 FL (80-90); MEAN PLATELET VOLUME 8.5 FL (7.4-12.2); MONOCYTES # (AUTO) 1.37 10*3/UL (0.3-0.8); MONOCYTES % (AUTO) 10.4 % (5-15); NEUTROPHILS # (AUTO) 8.88 10*3/UL; NEUTROPHILS % (AUTO) 67.7 % (50-80); PLATELET MORPHOLOGY COMMENT NORMAL MORPHOLOGY (NORM); RBC MORPHOLOGY COMMENT NORMAL MORPHOLOGY (NORM); RED BLOOD COUNT 4.88 10^6/uL (4.70-6.10); WBC MORPHOLOGY COMMENT NORMAL MORPHOLOGY (NORM)
[2016-10-10 20:14] LABS: BUN/CREATININE RATIO 23.33 (6-20); CALCIUM 9.6 mg/dL (8.7-10.7); SERUM ALBUMIN 3.8 g/dL (3.5-4.8)
[2016-10-10] MEDS ORDERED: LIDOCAINE HCL 1%/EPI 1:100,000 - 20 ML VIAL ONE (20:43)
[2016-10-10] MEDS ORDERED: BACITRACIN 0.9 GM PACKET OINT TOPICAL ONE ×2 (20:45→20:50)
--- NOTE | 2016-10-10 20:47 | DI ---
CLINICAL HISTORY: Dog bites in multiple locations. PREVIOUS EXAM: December 21, 2006. FINDINGS/TECHNIQUE: AP and lateral views of the tibia and fibula are obtained, and demonstrate anatom ic alignment without fractures. Peripheral vascular calcifications are noted. Degenerative changes of the knee are seen. There is no radiopaque foreign body identified. IMPRESSION: 1. Diffuse degenerative changes of the left knee. 2. No radiopaque foreign body within the soft tissues.
[2016-10-10] MEDS ORDERED: LIDOCAINE 2%/ EPI 1:200,000 - 20 ML VIAL SUBCUT ONE (20:50)
[2016-10-10 21:09] VITALS: RESP 22; TEMP 97.4
== END 2016-10-10 21:21 | disposition home or self-care (01) ==
LOC: ER 19:49
DX: S81.852A Open bite, left lower leg, initial encounter (principal); Z95.5 Presence of coronary angioplasty implant and graft; E11.9 Type 2 diabetes mellitus without complications; Z79.01 Long term (current) use of anticoagulants; W54.0XXA Bitten by dog, initial encounter
CPT/HCPCS: 12001 ×2; 73590; 80053; 85025; 85610; 90471; 96374; 96375; 99282; 99283; J2270; J2405; 90715; J7030

== ENCOUNTER 2016-10-12 09:37 | Emergency (ER) | payer OTHER, MEDICARE ==
[2016-10-12] MEDS ORDERED: BACITRACIN 0.9 GM PACKET OINT TOPICAL ONE (09:54)
--- NOTE | 2016-10-12 10:00 | PDOC ---
Wound/Burn Recheck HPI - General Chief Complaint: Wound Recheck / Suture Removal Stated Complaint: LEFT LOWER LEG WOUND RECHECK/DOG BITE TUESDAY Date Seen by Provider: 10/12/16 Time Seen by Provider: 09:50 Source: POSITIVE: Patient Exam Limitations: POSITIVE: No limitations Nurse's Notes Reviewed & Considered: Yes - History of Present Illness Initial Comments: This pleasant 80-year-old male comes in for check of his wounds resulting from a dog bite. Patient was seen in the emergency department October 10 for dog bite to his left lower extremity. He returns today for reevaluation of his wound. He has been taking his Augmentin as prescribed twice a day. He denies any fever chills or sweats, nausea vomiting or diarrhea, chest pain or shortness of breath, no headaches, no myalgias or arthralgias. He does have pain in the area around his bites on his left calf. Have you received a tetanus shot in the past 10 years?: Unknown Body Location Affected: REPORTS: Lower Extremity (L) Previous Treatment: REPORTS: Laceration Repair, Antibiotics Given PO/RX Treated on (date): 10/10/16 Symptoms Since Procedure: REPORTS: Redness, Swelling Severity: Mild Quality: REPORTS: "Pain" Any Prior Injuries Related to Current Complaint?: No - Patient Home Medications Home Medications: Home Medications Albuterol Sulfate [Ventolin Hfa] 1 - 2 puff INH Q4-6H #1 inhaler 09/23/14 Budesonide/Formoterol Fumarate [Symbicort] 2 puff INH BID #2 inh 03/27/15 Aspirin 81 mg PO DAILY tab 12/31/15 Warfarin Sodium 5 - 7.5 mg PO DAILY #100 tab 05/12/16 Albuterol Sulfate 1 each NEB Q4-6H PRN #90 vial 06/30/16 Atorvastatin Calcium 1 tab PO DAILY #90 tab 06/30/16 Clopidogrel Bisulfate [Plavix] 1 tab PO DAILY #90 tablet 06/30/16 Lisinopril 1 tab PO DAILY #90 tab 06/30/16 Tizanidine HCl [Zanaflex] 1 cap PO TID PRN #90 cap 06/30/16 Trazodone HCl 3 tab PO QHS PRN #90 tab 06/30/16 - Patient Allergies Allergies/Adverse Reactions: Allergies Allergy/AdvReac Type Severity Reaction Status Date / Time silver Allergy HIVES Verified 10/12/16 09:39 [From Tegaderm AG Mesh] Sulfa (Sulfonamide AdvReac Intermediate VOMITING Verified 10/12/16 09:39 Antibiotics) tape AdvReac HIVES Uncoded 10/12/16 09:39 Past Medical History - heen HEENT History: Cataracts, Other (please comment) Additional HEENT History: WEARS GLASSES Cardiovascular History: Hypertension, CAD, Hyperlipidemia Additional Cardiovasular History: CARDIAC STENTS X3 Respiratory History: Asthma, COPD, Shortness of Breath, Pneumonia, Home Oxygen Use, Other (please comment) Additional Respiratory History: IDEOPATHIC PULMONARY FIBROSIS. 2 L OCCASIONALLY Gastrointestinal History: GERD, Diverticulitis, Hiatal Hernia, Other (please comment) Additional Gastrointestinal History: COLON RESECTION IN Genitourinary History: Denies History Endocrine History: Type 2 Diabetes (oral) Musculoskeletal History: Arthritis, Back Pain, Muscle Weakness, Limited ROM, Joint Pain, Physical Limitation Prosthesis or Implant: No Additional Musculoskeletal History: RIGHT ANKLE FUSED, LEFT ACHILES TENDON TEAR. HX OF INFECTED DISKS/ IV ABX THERAPY Neurological History: Denies History Blood Disorders: Denies History Psychiatric History: Denies History History of Sexually Transmitted Diseases: No Cancer History: Denies History In Past Year Been Physically Harmed or Verbally Threatened: No (PER PATIENT) History of MDRO: Yes Other Type of MDRO: MRSA History of Other Communicable Diseases: No Tobacco Use: Former Smoker Alcohol Use: Occasionally Substance Use Type: None Previous Surgical History: Yes Type / Date of Surgery: ankle fusioncolon resectionappendectomydiscitiscataractsLEFT ROTATOR CUFF, CHOLECYSTECTOMY, CARDIAC STENTS X3 Anesthesia Reactions: No Malignant Hyperthermia: No Significant Family History: Cancer Additional Family History: father of esophageal ca ROS - Limitations ROS Limitations: No Limitations Constitution: REPORTS: Denies Symptoms Cardiovascular: REPORTS: Denies Cardiac Symptoms Respiratory: REPORTS: Denies Resp Symptoms Neurological: REPORTS: Denies Neuro Symptoms Gastrointestinal: REPORTS: Denies GI Symptoms Endocrine: REPORTS: Denies Symptoms Musculoskeletal: REPORTS: Calf Pain Genitourinary: REPORTS: Denies Symptoms Eyes: REPORTS: Denies Symptoms ENT: REPORTS: Denies Symptoms Skin: REPORTS: Excessive Bruising Lympathic: REPORTS: Denies Lympathic Symptoms Immunologic: POSITIVE: Denies Symptoms Psychiatric: POSITIVE: Denies Psych Symptoms Wound/Burn Recheck Exam - General Appearance General Appearance: POSITIVE: Alert, Cooperative, No Acute Distress - Neuro/Vascular/Tendon Neuro/Vascular/Tendon: POSITIVE: No Vascular Compromise, Motor Normal, Sensation Normal, ROM Normal, No Tendon Injury, No Pulse Deficit - Skin Skin: POSITIVE: Healing Wound, Erythema, Tenderness - HEENT HEENT: POSITIVE: Head Inspection Nml, Eyes Inspection Nml, Ears Inspection Nml, Nose Inspection Nml, Oral/Dental Inspect. Nml, Pharynx Inspect. Nml, PERRL, EOMI - Pupil Size Pupil Size: 5 mm: Bilateral - Respiratory / CVS Respiratory / CVS: POSITIVE: No Respiratory Distress Wound/Burn Recheck Progress - Patient's Progress Pain Medication Addressed: POSITIVE: No Status: POSITIVE: Improved MDM / ED Course: Patient was evaluated, erythema around his bite wounds were demarcated with indelible marker. His wounds were cleaned with wound clean solution, bacitracin and sterile dressings reapplied. Patient is encouraged to continue with his antibiotics as prescribed and return in 48 hours for recheck. No further bleeding is appreciated at this time. Assessment: dog bite with excessive bruising secondary to anticoagulant Plavix. Plan: Continue with wound dressing changes, Augmentin, and home pain medications. Return in 48 hours for recheck of wound. - Consult Counseled: POSITIVE: Patient, RE: DX, RE: Need for F/U Patient Care Time - Estimated PCT Patient Care Time (In Minutes): 10 Vital Signs - VS Reviewed Vital Signs Reviewed: Yes Discharge Clinical Impression: Laceration - injury Discharge Disposition: Discharged to Home Condition: Stable Patient Instructions Given at Discharge: Cellulitis (ED), Animal Bite (ED)
[2016-10-12 10:05] VITALS: RESP 17; TEMP 99
== END 2016-10-12 10:07 | disposition home or self-care (01) ==
LOC: ER 09:37
DX: S81.852A Open bite, left lower leg, initial encounter (principal); W54.0XXA Bitten by dog, initial encounter
CPT/HCPCS: 99282

== ENCOUNTER 2016-10-14 10:22 | Emergency (ER) | payer OTHER, MEDICARE ==
[2016-10-14] MEDS ORDERED: Bacitracin Oint 14.2 gm tube 14 APPLIC/14.2 GM TUBE TOPICAL ONE (10:26)
--- NOTE | 2016-10-14 10:32 | PDOC ---
Wound/Burn Recheck HPI - General Chief Complaint: Wound Recheck / Suture Removal Stated Complaint: WOUND RECHECK Date Seen by Provider: 10/14/16 Time Seen by Provider: 10:25 Source: POSITIVE: Patient Exam Limitations: POSITIVE: No limitations - History of Present Illness Initial Comments: Patient returns today for recheck of bite wound to his left lower extremity. This pleasant 80-year-old male was initially bitten by one of his dogs at home on October 10. He was seen here in the emergency department on the for wound check and dressing change. He returns today for further reevaluation of his wound. The oozing of blood has slowed down, and has decreased, and erythema is improved. Have you received a tetanus shot in the past 10 years?: Unknown Body Location Affected: REPORTS: Lower Extremity (L) Previous Treatment: REPORTS: Laceration Repair, Antibiotics Given PO/RX, Other ( please comment) (Dressing changes every 48 hours.) Treated on (date): 10/12/16 Symptoms Since Procedure: REPORTS: Pain (Pain has significantly improved.) Severity: Mild Quality: REPORTS: "Pain" Any Prior Injuries Related to Current Complaint?: No - Patient Home Medications Home Medications: Home Medications Albuterol Sulfate [Ventolin Hfa] 1 - 2 puff INH Q4-6H #1 inhaler 09/23/14 Budesonide/Formoterol Fumarate [Symbicort] 2 puff INH BID #2 inh 03/27/15 Aspirin 81 mg PO DAILY tab 12/31/15 Warfarin Sodium 5 - 7.5 mg PO DAILY #100 tab 05/12/16 Albuterol Sulfate 1 each NEB Q4-6H PRN #90 vial 06/30/16 Atorvastatin Calcium 1 tab PO DAILY #90 tab 06/30/16 Clopidogrel Bisulfate [Plavix] 1 tab PO DAILY #90 tablet 06/30/16 Lisinopril 1 tab PO DAILY #90 tab 06/30/16 Tizanidine HCl [Zanaflex] 1 cap PO TID PRN #90 cap 06/30/16 Trazodone HCl 3 tab PO QHS PRN #90 tab 06/30/16 - Patient Allergies Allergies/Adverse Reactions: Allergies Allergy/AdvReac Type Severity Reaction Status Date / Time silver Allergy HIVES Verified 10/14/16 10:35 [From Tegaderm AG Mesh] Sulfa (Sulfonamide AdvReac Intermediate VOMITING Verified 10/14/16 10:35 Antibiotics) tape AdvReac HIVES Uncoded 10/14/16 10:35 Past Medical History - heen HEENT History: Cataracts, Other (please comment) Additional HEENT History: WEARS GLASSES Cardiovascular History: Hypertension, CAD, Hyperlipidemia Additional Cardiovasular History: CARDIAC STENTS X3 Respiratory History: Asthma, COPD, Shortness of Breath, Pneumonia, Home Oxygen Use, Other (please comment) Additional Respiratory History: IDEOPATHIC PULMONARY FIBROSIS. 2 L OCCASIONALLY Gastrointestinal History: GERD, Diverticulitis, Hiatal Hernia, Other (please comment) Additional Gastrointestinal History: COLON RESECTION IN Genitourinary History: Denies History Endocrine History: Type 2 Diabetes (oral) Musculoskeletal History: Arthritis, Back Pain, Muscle Weakness, Limited ROM, Joint Pain, Physical Limitation Prosthesis or Implant: No Additional Musculoskeletal History: RIGHT ANKLE FUSED, LEFT ACHILES TENDON TEAR. 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 History of Other Communicable Diseases: No Alcohol Use: Occasionally Substance Use Type: None Previous Surgical History: Yes Type / Date of Surgery: ankle fusioncolon resectionappendectomydiscitiscataractsLEFT ROTATOR CUFF, CHOLECYSTECTOMY, CARDIAC STENTS X3 Anesthesia Reactions: No Malignant Hyperthermia: No Significant Family History: Cancer Additional Family History: father of esophageal ca ROS Constitution: REPORTS: Denies Symptoms Cardiovascular: REPORTS: Denies Cardiac Symptoms Respiratory: REPORTS: Denies Resp Symptoms Neurological: REPORTS: Denies Neuro Symptoms Gastrointestinal: REPORTS: Denies GI Symptoms Endocrine: REPORTS: Denies Symptoms Musculoskeletal: REPORTS: Lower Extremity Swelling, Muscle Aches, Recent Injury Genitourinary: REPORTS: Denies Symptoms Eyes: REPORTS: Denies Symptoms ENT: REPORTS: Denies Symptoms Skin: REPORTS: Denies Skin Symptoms Lympathic: REPORTS: Denies Lympathic Symptoms Immunologic: POSITIVE: Denies Symptoms Psychiatric: POSITIVE: Denies Psych Symptoms Wound/Burn Recheck Exam - General Appearance General Appearance: POSITIVE: Alert, Cooperative, No Acute Distress - Neuro/Vascular/Tendon Neuro/Vascular/Tendon: POSITIVE: No Vascular Compromise, Motor Normal, Sensation Normal, ROM Normal, No Tendon Injury, No Pulse Deficit - Skin Skin: POSITIVE: Healing Wound, No Infection Wound/Burn Recheck Progress - Patient's Progress Pain Medication Addressed: POSITIVE: Not Applicable Status: POSITIVE: Improved MDM / ED Course: Patient was examined. His wound had significantly improved with decreased erythema, decreased swelling, and decreased pain. Assessment: Improving dog bite, presently on antibiotics. Plan: Discharge home. His primary care provider office has been contacted for follow-up tomorrow and dressing change. He needs to return to either the emergency room or his primary care physician on October 18 for suture removal. - Consult Consult (If Yes, Name of Consulting MD & Time Called): Yes (Dr. Mora's office 1030 hr) Consulting MD will see pt:: POSITIVE: In Office Counseled: POSITIVE: Patient, RE: DX, RE: Need for F/U Patient Care Time - Estimated PCT Patient Care Time (In Minutes): 15 Vital Signs - VS Reviewed Vital Signs Reviewed: Yes Discharge Clinical Impression: Dog bite Discharge Disposition: Discharged to Home Condition: Fair Patient Instructions Given at Discharge: Animal Bite (ED) Follow Up With: IRAIS MORA [Primary Care Provider] -
[2016-10-14 11:13] VITALS: RESP 16; TEMP 97.8
== END 2016-10-14 10:55 | disposition home or self-care (01) ==
LOC: ER 10:22
DX: S81.852A Open bite, left lower leg, initial encounter (principal); W54.0XXA Bitten by dog, initial encounter; Z79.01 Long term (current) use of anticoagulants; Z51.81 Encounter for therapeutic drug level monitoring; Z86.711 Personal history of pulmonary embolism
CPT/HCPCS: 85610; 99282

== ENCOUNTER → 2016-10-14 | Outpatient (CLI) | payer OTHER, MEDICARE | LOC: MMPC 09:00 | PROVIDERS: ATTEND Internal Medicine | DX: Z79.01 Long term (current) use of anticoagulants (principal); Z51.81 Encounter for therapeutic drug level monitoring; Z86.711 Personal history of pulmonary embolism | CPT/HCPCS: 85610 ==

== ENCOUNTER → 2016-10-15 | Outpatient (CLI) | payer OTHER, MEDICARE | LOC: MMPC 09:00 | PROVIDERS: ATTEND Nurse Practitioner Family | DX: S81.852A Open bite, left lower leg, initial encounter (principal); W54.0XXA Bitten by dog, initial encounter | CPT/HCPCS: 99213; G0463 ==

== ENCOUNTER 2017-04-15 07:29 | Inpatient (IN) ==
[2017-04-15] MEDS ORDERED: Sodium Chloride 0.9% 1,000 ML PRIMARY IV ONE ×3 (08:05→17:18)
[2017-04-15] MEDS ORDERED: NORMAL SALINE 10 ML SYRINGE FLUSH IVP PRN (08:05)
[2017-04-15 08:17] LABS: BASOPHILS # (AUTO) 0.02 10*3/UL; BASOPHILS % (AUTO) 0.4 % (0-1); EOSINOPHILS # (AUTO) 0.04 10*3/UL; EOSINOPHILS % (AUTO) 0.7 % (0-8); Hemoglobin [HGB] 13.5 g/dL (14.0-18.0); LYMPHOCYTES # (AUTO) 0.63 10*3/uL; MEAN CORPUSCULAR HEMOGLOBIN 26.9 PG (27-31); MEAN CORPUSCULAR HGB CONC 32.1 g/dL (33-37); MEAN CORPUSCULAR VOLUME 83.7 FL (80-90); MEAN PLATELET VOLUME 9.1 FL (7.4-12.2); MONOCYTES # (AUTO) 0.42 10*3/UL (0.3-0.8); MONOCYTES % (AUTO) 7.4 % (5-15); NEUTROPHILS # (AUTO) 4.54 10*3/UL; NEUTROPHILS % (AUTO) 80.2 % (50-80); RED BLOOD COUNT 5.02 10^6/uL (4.70-6.10)
[2017-04-15 08:22] LABS: BLOOD UREA NITROGEN 21 mg/dL (7-22); BUN/CREATININE RATIO 16.15 (6-20); SERUM ALBUMIN 3.2 g/dL (3.5-4.8)
[2017-04-15 08:28] LABS: PLATELET MORPHOLOGY COMMENT NORMAL MORPHOLOGY (NORM); RBC MORPHOLOGY COMMENT NORMAL MORPHOLOGY (NORM); WBC MORPHOLOGY COMMENT NORMAL MORPHOLOGY (NORM)
[2017-04-15 08:31] LABS: VENOUS PH 7.34 (7.32-7.42)
[2017-04-15] MEDS ORDERED: cefTRIAXone Inj 2 GM in Sodium Chloride 0.9% 100 ML IV ONE (08:50)
--- NOTE | 2017-04-15 08:52 | DI ---
XR CXR 1VW,04/15/2017 8:05 AM: Clinical History: Rales and hypoxia. Previous Exam: December 29, 2016 Findings: A single AP view of the chest is obtained, and demonstrates near-complete opacification of the right lung. Cardiomediastinum and bony thorax are unremarkable. Impression: Diffuse opacification of the right lung most consistent with pneumonia. Recommend followup imaging af ter treatment to document resolution.
--- NOTE | 2017-04-15 09:07 | DI ---
CT Head WO Contrast,04/15/2017 8:05 AM: Clinical History: Head trauma and confusion. Previous Exam: November 09, 2013 Findings: Multiple helically acquired CT images are obtained through the brain without contrast, and demonstrat e diffuse age-related volume loss. There is no mass, hemorrhage nor midline shift. Multiple peripheral vascular calcifications are seen. There is some mucoperiosteal thickening noted involving the paranasal sinuses. Impression: 1. Diffuse age-related volume loss otherwise unremarkable. 2. Peripheral vascular calcifications. 3. No intracranial hemorrhage.
--- NOTE | 2017-04-15 09:14 | PDOC ---
General Adult HPI - General Chief Complaint: General Medical Stated Complaint: fall Date Seen by Provider: 04/15/17 Time Seen by Provider: 07:50 Source: POSITIVE: Patient, Other (Son) Exam Limitations: POSITIVE: No limitations Nurse's Notes Reviewed & Considered: Yes - History of Present Illness Initial Comment: The patient is an 81-year-old male who was brought to the emergency room by ambulance. Apparently, the patient called the ambulance because he states he "slid out of his chair around 1:30 AM and was not able to get up". On arrival of the paramedics they noted the patient to be hypoxic with a oxygen saturation in the low 80s. They also noted some rales to the chest. The patient lives alone in a nursing home center. He has a history of COPD and has had pulmonary emboli in the past and is presently on warfarin. After the patient arrived at the hospital the patient's son was notified and he states he went to the patient's residence and inspected it. He states that he noted some "blood in stool on the floor the bathroom". Patient states that the towel rack was broken and he suspects the patient fell in the bathroom. The patient, however, denies this and has no recollection of falling in the bathroom. The son states that he last saw the patient 2 days ago and at that time the patient appeared normal to the son. Patient states he has been short of breath and has had an increased cough over the last few days and believes that he's been running a fever. He states he's been vaccinated against pneumonia and also had an influenza vaccination this year. Have you received a tetanus shot in the past 10 years?: Yes Body Location Affected: REPORTS: Face (Patient has evidence of recent right- sided epistaxis and some blood on his lips. He also has some swelling below his right eye.), Chest (Cough, hypoxia and rales) Timing: REPORTS: Other Duration: <24 hours Severity: Moderate Quality: REPORTS: Other (Patient denies any head, facial, neck, chest, abdominal or hip pain.) Context: REPORTS: Fall (Circumstances or little uncertain, as above.) Modifying Factors: improves with: Breathing (Dyspnea), Coughing Similar Symptoms Previously: No Recent Care Received: REPORTS: Denies Any Prior Injuries Related to Current Complaint?: No - Patient Home Medications Home Medications: Home Medications Albuterol Sulfate [Ventolin Hfa] 1 - 2 puff INH Q4-6H #1 inhaler 09/23/14 Budesonide/Formoterol Fumarate [Symbicort] 2 puff INH BID #2 inh 03/27/15 Warfarin Sodium 5 - 7.5 mg PO DAILY #100 tab 05/12/16 warfarin 5 mg tablet 5 - 7.5 mg PO QDAY #60 tab 11/01/16 aspirin 81 mg chewable tablet 81 mg PO QDAY tab 01/05/17 atorvastatin 80 mg tablet 80 mg PO QDAY #90 tab 01/05/17 losartan 25 mg tablet 25 mg PO QDAY #90 tab 01/05/17 tizanidine 4 mg capsule 4 mg PO TID PRN #90 cap 01/05/17 trazodone 50 mg tablet 150 mg PO QHS PRN #90 tab 01/05/17 levothyroxine 100 mcg tablet 100 mcg PO ONCE #90 tab 04/11/17 Dexlansoprazole [Dexilant] 60 mg PO DAILY 04/15/17 - Patient Allergies Allergies/Adverse Reactions: Allergies 3 Allergy/AdvReac Type Severity Reaction Status Date / Time silver Allergy HIVES Verified 04/11/17 11:16 [From Tegaderm AG Mesh] Sulfa (Sulfonamide AdvReac Intermediate VOMITING Verified 04/11/17 11:16 Antibiotics) tape AdvReac HIVES Uncoded 04/11/17 11:16 Past Medical History - heen HEENT History: Cataracts, Other (please comment) Additional HEENT History: WEARS GLASSES Cardiovascular History: Hypertension, CAD, Hyperlipidemia Additional Cardiovasular History: CARDIAC STENTS X3 Respiratory History: Asthma, COPD, Shortness of Breath, Pneumonia, Home Oxygen Use, Other (please comment) Additional Respiratory History: IDEOPATHIC PULMONARY FIBROSIS. 2 L OCCASIONALLY Gastrointestinal History: GERD, Diverticulitis, Hiatal Hernia, Other (please comment) Additional Gastrointestinal History: COLON RESECTION IN Genitourinary History: Denies History Endocrine History: Type 2 Diabetes (oral) Musculoskeletal History: Arthritis, Back Pain, Muscle Weakness, Limited ROM, Joint Pain, Physical Limitation Prosthesis or Implant: No Additional Musculoskeletal History: RIGHT ANKLE FUSED, LEFT ACHILES TENDON TEAR. 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 History of Other Communicable Diseases: No Tobacco Use: Former Smoker Alcohol Use: Occasionally In the Past 12 Months, Have Used or Abuse Any Substance: None Previous Surgical History: Yes Type / Date of Surgery: ankle fusioncolon resectionappendectomydiscitiscataractsLEFT ROTATOR CUFF, CHOLECYSTECTOMY, CARDIAC STENTS X3 Anesthesia Reactions: No Malignant Hyperthermia: No Significant Family History: Cancer Additional Family History: father of esophageal ca Past Medical History Reviewed: Reviewed - No Changes ROS - Limitations ROS Limitations: No Limitations Constitution: REPORTS: Chills, Fever, Weakness Cardiovascular: REPORTS: Denies Cardiac Symptoms Respiratory: REPORTS: Cough Productive, Shortness Of Breath Neurological: REPORTS: Other (Patient states that he cannot recall falling in the bathroom recently, although son states there is evidence as above that this occurred) Gastrointestinal: REPORTS: Diarrhea Endocrine: REPORTS: Denies Symptoms Musculoskeletal: REPORTS: Denies MS Symptoms Genitourinary: REPORTS: Denies Symptoms Eyes: REPORTS: Denies Symptoms ENT: REPORTS: Nose Bleed (Recent right-sided epistaxis) Skin: REPORTS: Denies Skin Symptoms Lympathic: REPORTS: Denies Lympathic Symptoms Immunologic: POSITIVE: Denies Symptoms Psychiatric: POSITIVE: Denies Psych Symptoms General Adult Exam - General Appearance General Appearance: POSITIVE: Alert, Cooperative, No Acute Distress. NEGATIVE: No Evidence of Trauma (Swelling below right eye and evidence of recent right- sided epistaxis, nausea ongoing.) - HEENT HEENT: POSITIVE: Head Inspection Nml, Eyes Inspection Nml, Ears Inspection Nml, Oral/Dental Inspect. Nml, Pharynx Inspect. Nml, PERRL, EOMI. NEGATIVE: Nose Inspection Nml (Recent right-sided epistaxis; not ongoing) - Pupils Pupil Size: 3 mm: Bilateral - Neck Neck: POSITIVE: Normal Inspection, Thyroid Normal - Respiratory Respiratory: POSITIVE: Rales (Rales both lung bases and throughout the posterior and lateral aspect of the right lung). NEGATIVE: Breath Sounds Normal - Cardiovascular Cardiovascular: POSITIVE: Regular Rate & Rhythm, No Murmur, No Gallop, PMI Normal Peripheral Pulses: Radial (R): 2+, Radial (L): 2+ - Abdomen Abdomen: Soft: (All Quadrants), Normal Bowel Sounds: (All Quadrants), Denies Tenderness: (All Quadrants), No Splenomegaly: (All Quadrants), No Hepatomegaly: (All Quadrants), No Guarding: (All Quadrants), No Rebound: (All Quadrants), No Palpable Pulse: (All Quadrants), No Palpabale Mass: (All Quadrants), No Distention: (All Quadrants), No Rigidity: (All Quadrants) - Rectal Rectal: POSITIVE: Non Tender, Normal Rectal Tone, Heme Negative Stool, Other ( Stool light brown and quite loose with some diarrhea and patient is incontinent ; stool cultures, Clostridium difficile and stool leukocytes ordered and results are pending) - Back Back: POSITIVE: Normal Inspection - Skin Skin: POSITIVE: Normal Color, Warm, Dry, No Rash - Extremities Extremity: Non-Tender: (All Extremities), Normal ROM: (All Extremities), Normal Inspection: (All Extremities) - Neurological / Psychological Neurological: 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, pacu rn Normal As Tested, Motor Normal, Sensation Normal, 5, 6 Images - Head Head: 1 - Mild swelling General Adult Progress - Results Reviewed by me Xrays/CTs/US Reviewed by me: Yes Discussed with Radiologist: Yes Radiology Findings: Chest x-ray shows prominent infiltrate in the right lung; this is new from his previous chest x-ray done 06/07/2016. CT scan head without contrast shows no hemorrhage or other acute changes. Lab Results Reviewed by Me: Yes (INR 3.96, blood cultures drawn. Troponin negative. BNP 635 lactic acid 2.) CBC and BMP: 04/15/17 07:15 04/15/17 07:15 - Patient's Progress Pain Medication Addressed: POSITIVE: Not Applicable School/Work Release Addressed: POSITIVE: Not Applicable Re-Examine Time: 09:10 Re-Examine Comment: 2 g of Rocephin and 500 mg of azithromycin IV ordered after blood cultures were drawn. Diagnosis of pneumonia with hypoxia, supratherapeutic INR, diarrhea and possible cerebral concussion discussed with patient and patient's son. Status: POSITIVE: Unchanged, Re-Examined Antibiotics Given: Yes (Rocephin 2 g, Zithromax 500 mg IV) Quality Measure Initiative: CAP: POSITIVE: SaO2, Antibiotic(s), BC, CXR or CT - Consult Consult (If Yes, Name of Consulting MD & Time Called): Yes (Dr. Aguilera, hospitalist, [id number]) Consulting MD will see pt:: POSITIVE: [facility] Admit Counseled: POSITIVE: Patient, Family, RE: Lab Results, RE: Radiology Results, RE : DX, RE: Need for F/U Patient Care Time - Estimated PCT Patient Care Time (In Minutes): 60 Vital Signs - Recent Vital Signs Vital Signs: Vital Signs (Last 8 hours) Temp Pulse Resp BP Pulse Ox 04/15/17 07:54 99.2 F 93 32 H 104/48 83 04/15/17 07:32 90 22 104/84 82 - VS Reviewed Vital Signs Reviewed: Yes Discharge Clinical Impression: Diarrhea, Personal history of pulmonary embolism, Pneumonia, Elevated INR, Concussion Discharge Disposition: Admit to Inpatient Condition: Fair Follow Up With: IRAIS MORA [Primary Care Provider] - Date Decision to Admit to Inpatient: 04/15/17 Time Decision to Admit to Inpatient: 09:00
[2017-04-15] MEDS ORDERED: D5-1/2NS + 20mEq KCL 1,000 ML PRIMARY IV SCH (10:09)
[2017-04-15] MEDS ORDERED: LIDOCAINE W/ SODIUM BICARB 0.5 ML SYR SUBD PRN (10:09)
[2017-04-15] MEDS ORDERED: cefTRIAXone Inj 2 GM in Sodium Chloride 0.9% 100 ML IV SCH (10:09)
[2017-04-15] MEDS: IPRATROPIUM/ALBUTEROL SULFATE 3 ML NEB NEB SCH ×3 (10:55→19:03)
[2017-04-15] MEDS: LEVOTHYROXINE 100 MCG TABLET PO SCH (11:05)
[2017-04-15] MEDS: ASPIRIN 81 MG (BABY) CHEWABLE TABLET PO SCH (11:05)
[2017-04-15] MEDS: ACETAMINOPHEN 325 MG TABLET PO PRN (11:50)
[2017-04-15] MEDS: LOSARTAN 25 MG TABLET PO SCH (12:09)
[2017-04-15] MEDS: Sodium Chloride 0.9% 1,000 ML PRIMARY IV SCH ×2 (14:03→20:16)
--- NOTE | 2017-04-15 17:07 | PDOC ---
HPI - History of Present Illness Date of Service: 04/15/17 Time of Service: 11:00 Chief Complaint: Shortness of breath History of Present Illness: This is a very pleasant 81-year-old male with known COPD, not on oxygen at home , that had sudden onset of shortness of breath this morning. He apparently was trying to use the restroom and had a fall and hit his towel bar and had epistaxis as well. He was feeling quite weak. He reported to me and to the nurse present at the time of admission that he was actually sitting in his recliner and tried to kick it back and when he tried to get out of the recliner he fell down and could not get back up. Either way, he had shortness breath was found to be hypoxic on admission to the emergency room. A chest x-ray showed diffuse right-sided pneumonia. He was given antibiotics in the emergency room. He stated to me that he had the flu shot this year and that he' s had Pneumovax. He no longer smokes and quit several years in the past. His pneumonia severity index score was class III, and his curb65 score was 2 points. Initially he was normotensive in the emergency room but he became hypotensive here on the floor and we had a bolus of fluids administered. There were no exacerbating factors, the onset was so quick with shortness of breath and weakness that he did not try any interventions prior to coming in for evaluation. Past Medical History Medical History: 1. COPD. 2. Diabetes mellitus type II. 3. Coronary artery disease status post stents 3. 4. History of discitis with resultant chronic back pain. 5. Hypertension. 6. History of pulmonary embolism in 2010. I do not have documentation on the circumstances of that. Surgical History: 1. Discitis surgery. 2. Stents 3. 3. Right ankle fusion. 4. Appendectomy. 5. Cholecystectomy Pertinent Family History: No history of heart disease in the family. Past Social History: Used to smoke. . Has healthy children, one of whom lives in [place] and a son that lives here in [place]. Does not drink alcohol. 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 Tobacco Use: Former Smoker In the Past 12 Months, Have Used or Abuse Any of the Following Substance: None Alcohol Use: None Medication / Allergies Home Medications: Home Medications 3 Medication Instructions Recorded Confirmed Type Albuterol Sulfate [Ventolin Hfa] 1 - 2 puff INH Q4-6H #1 inhaler 09/23/14 History Budesonide/Formoterol Fumarate 2 puff INH BID #2 inh 03/27/15 04/15/17 History [Symbicort] Warfarin Sodium 5 - 7.5 mg PO DAILY #100 tab 05/12/16 10/14/16 Clinic warfarin 5 mg tablet 5 - 7.5 mg PO QDAY #60 tab 11/01/16 04/15/17 Clinic aspirin 81 mg chewable tablet 81 mg PO QDAY tab 01/05/17 04/15/17 History atorvastatin 80 mg tablet 80 mg PO QDAY #90 tab 01/05/17 04/15/17 Rx losartan 25 mg tablet 25 mg PO QDAY #90 tab 01/05/17 04/15/17 Rx tizanidine 4 mg capsule 4 mg PO TID PRN #90 cap 01/05/17 04/15/17 History trazodone 50 mg tablet 150 mg PO QHS PRN #90 tab 01/05/17 04/15/17 History levothyroxine 100 mcg tablet 100 mcg PO ONCE #90 tab 04/11/17 04/15/17 Rx Dexlansoprazole [Dexilant] 60 mg PO DAILY 04/15/17 04/15/17 History Allergies/Adverse Reactions: Allergies 3 Allergy/AdvReac Type Severity Reaction Status Date / Time silver Allergy HIVES Verified 04/11/17 11:16 [From Tegaderm AG Mesh] Sulfa (Sulfonamide AdvReac Intermediate VOMITING Verified 04/11/17 11:16 Antibiotics) tape AdvReac HIVES Uncoded 04/11/17 11:16 Review of Systems - Review of Systems All Systems: Reviewed & No Additional Complaints Except as Stated (I did a 12 point review systems and it was negative other than that discussed in the history of present illness and that noted below.) - Genitourinary Genitourinary: REPORTS: Other (Recently had a PSA found to be 29. He has an appointment with urology.) Exam - Vitals Vital Signs: Vital Signs Temperature 98.5 F Temperature Source Temporal Artery Scan Pulse Rate [Apical] 88 Pulse Rate [Pulse Oximeter 72 Left] Pulse Rate 69 Respiratory Rate 28 Blood Pressure [Left Arm] 103/47 Pulse Ox 99 Oxygen Flow Rate 6 Oxygen Delivery Method Nasal Cannula Height 5 ft 7 in Weight 164 lb - General General Appearance: Cooperative, Mild Distress (He is breathing at a mildly labored rate, and appears ill but not toxic.) - Head Head Exam: Normal Inspection, Normocephalic, Atraumatic - Eye Eye Exam: POSITIVE: No Scleral Icterus - ENT ENT Exam: POSITIVE: Mucous Membranes Dry - Neck Neck Exam: Normal Inspection, No Tenderness, No Lymphadenopathy, No Thyromegaly - Respiratory Respiratory Exam: POSITIVE: Normal to Percussion and Palpation, Crackles Additional Respiratory Exam Details: Mild increased work of the breathing. - Cardiovascular Cardiovascular Exam: POSITIVE: RRR, No Murmur, No Clicks, No Gallops, No Rubs, No JVD - GI/Abdominal GI/Abdominal Exam: POSITIVE: Normal Bowel Sounds, Non Tender, Non Distended, Soft - Rectal Rectal Exam: POSITIVE: Deferred - External Exam: POSITIVE: Deferred Exam: POSITIVE: Deferred - Extremities Extremities Exam: POSITIVE: No Clubbing Present, No Edema Present, No Cyanosis Present - Back Back Exam: POSITIVE: No CVA Tenderness - Neurological Neurological Exam: POSITIVE: Alert, Oriented x 3, No Facial Droop, Speech Intact / Clear, Moves All Extremities Equally - Psychiatric Psychiatric Exam: POSITIVE: Normal Affect, Normal Mood Results - Labs CBC and BMP: 04/15/17 07:15 04/15/17 07:15 Additional Lab Results: Laboratory Results 04/15/17 04/15/17 04/15/17 Range/Units 07:15 07:15 07:15 WBC 5.66 (4.8-10.8) 10^3/uL RBC 5.02 (4.70-6.10) 10^6/uL Hgb 13.5 L (14.0-18.0) g/dL Hct 42.0 (42.0-52.0) % MCV 83.7 (80-90) FL MCH 26.9 L (27-31) PG MCHC 32.1 L (33-37) g/dL RDW Std Deviation 50.2 H (39-50) fL RDW Coeff of [place]asm[place] 16.6 H (11.5-14.5) % Plt Count 210 (140-350) 10*3/uL MPV 9.1 (7.4-12.2) FL Immature Gran % (Auto) 0.2 (0-5) % Neut % (Auto) 80.2 H (50-80) % Lymph % (Auto) 11.1 (10-50) % [place] % (Auto) 7.4 (5-15) % Eos % (Auto) 0.7 (0-8) % Baso % (Auto) 0.4 (0-1) % Immature Gran # (Auto) 0.01 10*3/UL Neut # (Auto) 4.54 10*3/UL Lymph # (Auto) 0.63 10*3/uL [place] # (Auto) 0.42 (0.3-0.8) 10*3/UL Eos # (Auto) 0.04 10*3/UL Baso # (Auto) 0.02 10*3/UL WBC Morphology Comment Normal morphology (NORM) Plt Morphology Comment Normal morphology (NORM) RBC Morph Comment Normal morphology (NORM) PT 42.6 H (9.7-11.4) secs INR 3.96 (0.00-5.90) N/A VBG pH (7.32-7.42) VBG pCO2 (45-55) mmHg VBG HCO3 (22-26) mmol/L VBG Base Excess (-2-2) MMOL/L Sodium 141 (135-145) meq/L Potassium 4.1 (3.8-5.2) meq/L Chloride 109 (98-112) meq/L Carbon Dioxide 20 L (23-33) meq/L Anion Gap 12 (5-20) BUN 21 (7-22) mg/dL Creatinine 1.3 (0.70-1.50) mg/dL BUN/Creatinine Ratio 16.15 (6-20) Glucose 106 (78-110) mg/dL Calculated Osmolality 294.0 H (267-292) mOsm/kg Lactic Acid (0.70-2.10) MMOL/L Calcium 8.4 L (8.7-10.7) mg/dL Magnesium 1.5 L (1.6-2.4) mg/dL Total Bilirubin 0.8 (0.3-1.2) mg/dL AST 34 (21-57) IU/L ALT 20 L (21-72) IU/L Alkaline Phosphatase 61 (38-126) IU/L Total Creatine Kinase 146 (55-170) IU/L CK-MB (CK-2) (0.00-5.00) NG/ML Troponin I (< 0.040) ng/mL C-Reactive Protein 0.7 (0.0-0.9) mg/dL NT-Pro-B Natriuret Pep 635 H (0-450) PG/ML Total Protein 6.2 (6.1-8.0) g/dL Albumin 3.2 L (3.5-4.8) g/dL Globulin 3.0 (2.50-4.10) g/dL Albumin/Globulin Ratio 1.00 L (1.3-2.0) mg/g 04/15/17 04/15/17 04/15/17 Range/Units 07:15 08:24 08:25 WBC (4.8-10.8) 10^3/uL RBC (4.70-6.10) 10^6/uL Hgb (14.0-18.0) g/dL Hct (42.0-52.0) % MCV (80-90) FL MCH (27-31) PG MCHC (33-37) g/dL RDW Std Deviation (39-50) fL RDW Coeff of [place] (11.5-14.5) % Plt Count (140-350) 10*3/uL MPV (7.4-12.2) FL Immature Gran % (Auto) (0-5) % Neut % (Auto) (50-80) % Lymph % (Auto) (10-50) % [place] % (Auto) (5-15) % Eos % (Auto) (0-8) % Baso % (Auto) (0-1) % Immature Gran # (Auto) 10*3/UL Neut # (Auto) 10*3/UL Lymph # (Auto) 10*3/uL [place] # (Auto) (0.3-0.8) 10*3/UL Eos # (Auto) 10*3/UL Baso # (Auto) 10*3/UL WBC Morphology Comment (NORM) Plt Morphology Comment (NORM) RBC Morph Comment (NORM) PT (9.7-11.4) secs INR (0.00-5.90) N/A VBG pH 7.34 (7.32-7.42) VBG pCO2 39 L (45-55) mmHg VBG HCO3 21 L (22-26) mmol/L VBG Base Excess -5 L (-2-2) MMOL/L Sodium (135-145) meq/L Potassium (3.8-5.2) meq/L Chloride (98-112) meq/L Carbon Dioxide (23-33) meq/L Anion Gap (5-20) BUN (7-22) mg/dL Creatinine (0.70-1.50) mg/dL BUN/Creatinine Ratio (6-20) Glucose (78-110) mg/dL Calculated Osmolality (267-292) mOsm/kg Lactic Acid 2.0 (0.70-2.10) MMOL/L Calcium (8.7-10.7) mg/dL Magnesium (1.6-2.4) mg/dL Total Bilirubin (0.3-1.2) mg/dL AST (21-57) IU/L ALT (21-72) IU/L Alkaline Phosphatase (38-126) IU/L Total Creatine Kinase (55-170) IU/L CK-MB (CK-2) 1.12 (0.00-5.00) NG/ML Troponin I < 0.012 (< 0.040) ng/mL C-Reactive Protein (0.0-0.9) mg/dL NT-Pro-B Natriuret Pep (0-450) PG/ML Total Protein (6.1-8.0) g/dL Albumin (3.5-4.8) g/dL Globulin (2.50-4.10) g/dL Albumin/Globulin Ratio (1.3-2.0) mg/g - Imaging Status: Image Reviewed by Me (Chest x-ray, on my view, shows diffuse right- sided pneumonia. Could be consistent with possible aspiration. Head CT scan was negative for acute blood.) Assessment and Plan - Patient Problems (1) Community acquired pneumonia Current Visit: Yes Status: Acute Code(s): J18.9 - Pneumonia, unspecified organism Qualifiers: Laterality: right Lung location: unspecified part of lung Qualified Code( s): J18.9 - Pneumonia, unspecified organism (2) COPD (chronic obstructive pulmonary disease) Current Visit: Yes Status: Acute Code(s): J44.9 - Chronic obstructive pulmonary disease, unspecified Qualifiers: COPD type: emphysema Emphysema type: unspecified Qualified Code(s): J43.9 - Emphysema, unspecified (3) History of pulmonary embolism Current Visit: Yes Status: Chronic Code(s): Z86.711 - Personal history of pulmonary embolism (4) Coronary artery disease Current Visit: Yes Status: Acute Code(s): I25.10 - Atherosclerotic heart disease of [place] coronary artery without angina pectoris Qualifiers: Coronary Disease-Associated Artery/Lesion type: [place] artery Associated angina: without angina (5) Elevated INR Current Visit: Yes Status: Acute Code(s): R79.1 - Abnormal coagulation profile (6) Benign hypertension Current Visit: Yes Status: Chronic (7) Diabetes mellitus, type 2 Current Visit: Yes Status: Chronic Qualifiers: Diabetes mellitus complication status: without complication Diabetes mellitus fci insulin use: without fci use Qualified Code(s): E11.9 - Type 2 diabetes mellitus without complications - Assessment / Plan Additional Assessment/Plan Details: Admit patient. Antibiotics will be given IV to target strep pneumoniae in particular., This will consist of Rocephin IV, and Zithromax. I will write for some breathing therapies including nebulized therapies if necessary. Oxygen as necessary to keep saturations greater than 91%. Respiratory therapy to evaluate. Vitamin C by mouth. We'll check a urinary antigen for strep pneumoniae. Given his low blood pressures, I will bolus fluids. Lactic acid is normal and reviewed. He has Pneumovax already administered, and had the flu vaccine this year. Does not smoke. Repeat labs in a.m. CODE STATUS discussed, full code. Blood cultures are pending. Telemetry monitoring for now. Plan above discussed with patient and he agreed.
[2017-04-15] MEDS: GUAIFENESIN 600 MG TABLET PO SCH (20:25)
[2017-04-15] MEDS: ATORVASTATIN 40 MG TABLET PO SCH (20:26)
[2017-04-15] MEDS ORDERED: tiZANidine Tab 4 MG TAB PO PRN (20:29)
[2017-04-15] MEDS: traZODone Tab 50 MG TAB PO PRN (20:33)
[2017-04-16] MEDS: Sodium Chloride 0.9% 1,000 ML PRIMARY IV SCH ×3 (03:16→19:12)
[2017-04-16 05:29] LABS: Hematocrit [HCT] 32.7 % (42.0-52.0); Hemoglobin [HGB] 10.3 g/dL (14.0-18.0); MEAN CORPUSCULAR HEMOGLOBIN 26.7 PG (27-31); MEAN CORPUSCULAR HGB CONC 31.5 g/dL (33-37); MEAN CORPUSCULAR VOLUME 84.7 FL (80-90); MEAN PLATELET VOLUME 9.6 FL (7.4-12.2); RED BLOOD COUNT 3.86 10^6/uL (4.70-6.10)
[2017-04-16 05:42] LABS: BLOOD UREA NITROGEN 21 mg/dL (7-22); BUN/CREATININE RATIO 19.09 (6-20)
[2017-04-16 05:49] LABS: PLATELET MORPHOLOGY COMMENT NORMAL MORPHOLOGY (NORM); RBC MORPHOLOGY COMMENT NORMAL MORPHOLOGY (NORM)
[2017-04-16 05:50] LABS: BAND NEUTROPHILS % 21 % (0-10); BASOPHILS % (MANUAL) 0 % (0-1); EOSINOPHILS % (MANUAL) 0 % (0-8); METAMYELOCYTES % 3 %; MONOCYTES % (MANUAL) 3 % (0-12); NEUTROPHILS % (MANUAL) 70 % (50-80); WBC MORPHOLOGY COMMENT SEE COMMENTS (NORM)
[2017-04-16] MEDS: IPRATROPIUM/ALBUTEROL SULFATE 3 ML NEB NEB SCH ×4 (06:24→19:29)
[2017-04-16] MEDS: GUAIFENESIN 600 MG TABLET PO SCH ×2 (09:16→21:49)
[2017-04-16] MEDS: LOSARTAN 25 MG TABLET PO SCH (09:16)
[2017-04-16] MEDS: ASCORBIC ACID 500 MG TABLET PO SCH (09:16)
[2017-04-16] MEDS: ASPIRIN 81 MG (BABY) CHEWABLE TABLET PO SCH (09:17)
[2017-04-16] MEDS ORDERED: AZITHROMYCIN 250 MG TABLET PO ONE (09:29)
[2017-04-16] MEDS: ACETAMINOPHEN 325 MG TABLET PO PRN ×2 (09:31→17:16)
[2017-04-16] MEDS ORDERED: cefTRIAXone Inj 2 GM in Sodium Chloride 0.9% 100 ML IV SCH (10:00)
[2017-04-16] MEDS ORDERED: PHYTONADIONE 10 MG/1 ML AMPULE PO ONE (11:33)
--- NOTE | 2017-04-16 12:46 | PDOC(PROG) ---
Date and Time of Service: 04/16/2017, 1245 Interval History: No completes of chest pain. States he feels better overall, has still had some fevers and has had hemoptysis. His INR still elevated, so we will give him some vitamin K today. No nausea no vomiting. Objective : Data - Labs CBC and BMP: 04/16/17 04:25 04/16/17 04:25 Additional Lab Results: Had significant bandemia with over 20 bands. Objective : Exam - General General Appearance: No Acute Distress, Cooperative Additional General Exam Details: Vital Signs (24 hrs) Temp Pulse Pulse Pulse Resp BP Pulse Ox 04/16/17 10:42 88 18 04/16/17 10:41 88 18 04/16/17 09:00 101.3 F H 89 20 144/49 92 04/16/17 07:00 80 80 20 95 04/16/17 06:25 84 18 94 04/16/17 06:24 84 18 93 04/16/17 05:07 91 04/16/17 05:00 98.4 F 83 12 137/53 95 04/16/17 03:00 76 93 04/16/17 00:19 98.4 F 12 128/51 93 04/15/17 23:00 88 93 04/15/17 20:16 97.8 F 88 26 H 125/50 96 04/15/17 19:04 84 20 98 04/15/17 19:03 80 20 98 04/15/17 19:00 77 04/15/17 16:36 98.5 F 72 28 H 103/47 99 04/15/17 15:00 69 18 99 04/15/17 14:59 88 18 94 04/15/17 13:00 98.2 F 76 28 H 114/47 99 - Head Head Exam: Normal Inspection, Normocephalic, Atraumatic - Eye Eye Exam: No Scleral Icterus - ENT ENT Exam: Mucous Membranes Moist - Respiratory Respiratory Exam: Breathing Non Labored, Crackles, Coarse Breath Sounds - Cardiovascular Cardiovascular Exam: RRR, No Murmur, No Clicks, No Gallops, No Rubs, No JVD - GI/Abdominal GI/Abdominal Exam: Normal Bowel Sounds, Non Tender, Non Distended, Soft - Extremities Extremities Exam: No Clubbing Present, No Edema Present, No Cyanosis Present - Neurological Neurological Exam: Alert, Oriented x 3, No Facial Droop, Speech Intact / Clear, Moves All Extremities Equally Assessment and Plan - Patient Problems (1) Community acquired pneumonia Current Visit: Yes Status: Acute Code(s): J18.9 - Pneumonia, unspecified organism Qualifiers: Laterality: right Lung location: unspecified part of lung Qualified Code( s): J18.9 - Pneumonia, unspecified organism (2) COPD (chronic obstructive pulmonary disease) Current Visit: Yes Status: Acute Code(s): J44.9 - Chronic obstructive pulmonary disease, unspecified Qualifiers: COPD type: emphysema Emphysema type: unspecified Qualified Code(s): J43.9 - Emphysema, unspecified (3) History of pulmonary embolism Current Visit: Yes Status: Chronic Code(s): Z86.711 - Personal history of pulmonary embolism (4) Coronary artery disease Current Visit: Yes Status: Acute Code(s): I25.10 - Atherosclerotic heart disease of [place] coronary artery without angina pectoris Qualifiers: Coronary Disease-Associated Artery/Lesion type: [place] artery Associated angina: without angina (5) Elevated INR Current Visit: Yes Status: Acute Code(s): R79.1 - Abnormal coagulation profile (6) Benign hypertension Current Visit: Yes Status: Chronic (7) Diabetes mellitus, type 2 Current Visit: Yes Status: Chronic Qualifiers: Diabetes mellitus complication status: without complication Diabetes mellitus manager terminal insulin use: without fci use Qualified Code(s): E11.9 - Type 2 diabetes mellitus without complications - Assessment / Plan Additional Assessment/Plan Details: I was hopeful we could let the INR come gradually down holding Coumadin, but that is not the case. Probably some interference with antibiotics driving it up a little. With hemoptysis I'll go ahead and give vitamin K today. Continue IV antibiotics. Patient does not defervesced yet, so he'll likely need 7 days of antibiotic therapy. If hemoptysis continues into tomorrow, consider CT scan of the chest but hold off for now. I think it's all related to high INR and have pneumonia. Blood pressures are doing much better, so I think we can slow fluids down. Check labs tomorrow.
[2017-04-16] MEDS: LEVOTHYROXINE 100 MCG TABLET PO SCH (12:52)
[2017-04-16] MEDS: ALBUTEROL SULFATE 2.5 MG/3 ML NEB PRN (14:57)
[2017-04-16] MEDS ORDERED: Magnesium Sulfate 2gm (Premix) 2 GM/50 ML BAG IV ONE (16:54)
[2017-04-16] MEDS ORDERED: ONDANSETRON 4 MG/2 ML VIAL ONE (17:35)
[2017-04-16] MEDS: ONDANSETRON 4 MG/2 ML VIAL IVP PRN (17:38)
[2017-04-16] MEDS: ATORVASTATIN 40 MG TABLET PO SCH (21:49)
[2017-04-16] MEDS: traZODone Tab 50 MG TAB PO PRN (22:28)
[2017-04-17] MEDS: ACETAMINOPHEN 325 MG TABLET PO PRN ×2 (00:13→14:33)
[2017-04-17 05:01] LABS: BASOPHILS # (AUTO) 0.02 10*3/UL; BASOPHILS % (AUTO) 0.2 % (0-1); EOSINOPHILS # (AUTO) 0.21 10*3/UL; EOSINOPHILS % (AUTO) 1.8 % (0-8); Hemoglobin [HGB] 9.1 g/dL (14.0-18.0); LYMPHOCYTES # (AUTO) 0.76 10*3/uL; MEAN CORPUSCULAR HEMOGLOBIN 26.7 PG (27-31); MEAN CORPUSCULAR HGB CONC 31.4 g/dL (33-37); MEAN PLATELET VOLUME 8.5 FL (7.4-12.2); MONOCYTES # (AUTO) 0.59 10*3/UL (0.3-0.8); NEUTROPHILS # (AUTO) 10.07 10*3/UL; NEUTROPHILS % (AUTO) 86.2 % (50-80); RED BLOOD COUNT 3.41 10^6/uL (4.70-6.10)
[2017-04-17 05:08] LABS: BLOOD UREA NITROGEN 18 mg/dL (7-22); BUN/CREATININE RATIO 16.36 (6-20)
[2017-04-17 05:21] LABS: PLATELET MORPHOLOGY COMMENT NORMAL MORPHOLOGY (NORM); RBC MORPHOLOGY COMMENT NORMAL MORPHOLOGY (NORM); WBC MORPHOLOGY COMMENT NORMAL MORPHOLOGY (NORM)
[2017-04-17] MEDS: IPRATROPIUM/ALBUTEROL SULFATE 3 ML NEB NEB SCH ×4 (07:13→19:01)
[2017-04-17] MEDS: GUAIFENESIN 600 MG TABLET PO SCH ×2 (08:36→20:22)
[2017-04-17] MEDS: ASPIRIN 81 MG (BABY) CHEWABLE TABLET PO SCH (08:37)
[2017-04-17] MEDS: LOSARTAN 25 MG TABLET PO SCH (08:37)
[2017-04-17] MEDS: ASCORBIC ACID 500 MG TABLET PO SCH (08:37)
[2017-04-17] MEDS: cefTRIAXone Inj 2 GM in Sodium Chloride 0.9% 100 ML IV SCH (10:06)
[2017-04-17] MEDS: LEVOTHYROXINE 100 MCG TABLET PO SCH (10:49)
--- NOTE | 2017-04-17 14:16 | PDOC(PROG) ---
Date and Time of Service: 04/17/2017, 1413 Interval History: No chest pain. Still has phlegm production. Still short of breath. Cough nonproductive other than hemoptysis. Objective : Data - Labs CBC and BMP: 04/17/17 04:50 04/17/17 04:50 Additional Lab Results: 04/15/17 04/17/17 17:00 04:50 PT 20.4 H INR 1.91 Ur Strep pneumoniae Ag Negative Objective : Exam - General General Appearance: No Acute Distress, Cooperative Additional General Exam Details: Selected Entries 04/17/17 00:13 04/17/17 08:38 04/17/17 11:00 Temperature 99.5 F Pulse Rate Respiratory Rate Blood Pressure [Left Arm] 166/67 Pulse Ox 91 Oxygen Flow Rate 3 04/17/17 11:41 Temperature Pulse Rate 93 Respiratory Rate 20 Blood Pressure [Left Arm] Pulse Ox Oxygen Flow Rate - Eye Eye Exam: No Scleral Icterus - ENT ENT Exam: Mucous Membranes Moist - Respiratory Respiratory Exam: Breathing Non Labored, Decreased Breath Sounds, Crackles, Wheezes, Coarse Breath Sounds - Cardiovascular Cardiovascular Exam: RRR, No Murmur, No Clicks, No Gallops, No Rubs, No JVD - GI/Abdominal GI/Abdominal Exam: Normal Bowel Sounds, Non Tender, Non Distended, Soft - Extremities Extremities Exam: No Edema Present, No Cyanosis Present, Clubbing Present - Neurological Neurological Exam: Alert, Oriented x 3, No Facial Droop, Speech Intact / Clear, Moves All Extremities Equally - Psychiatric Psychiatric Exam: Normal Affect, Normal Mood Assessment and Plan - Patient Problems (1) Community acquired pneumonia Current Visit: Yes Status: Acute Code(s): J18.9 - Pneumonia, unspecified organism Qualifiers: Laterality: right Lung location: unspecified part of lung Qualified Code( s): J18.9 - Pneumonia, unspecified organism (2) COPD (chronic obstructive pulmonary disease) Current Visit: Yes Status: Acute Code(s): J44.9 - Chronic obstructive pulmonary disease, unspecified Qualifiers: COPD type: emphysema Emphysema type: unspecified Qualified Code(s): J43.9 - Emphysema, unspecified (3) History of pulmonary embolism Current Visit: Yes Status: Chronic Code(s): Z86.711 - Personal history of pulmonary embolism (4) Coronary artery disease Current Visit: Yes Status: Acute Code(s): I25.10 - Atherosclerotic heart disease of [place] coronary artery without angina pectoris Qualifiers: Coronary Disease-Associated Artery/Lesion type: [place] artery Associated angina: without angina (5) Elevated INR Current Visit: Yes Status: Acute Code(s): R79.1 - Abnormal coagulation profile (6) Benign hypertension Current Visit: Yes Status: Chronic (7) Diabetes mellitus, type 2 Current Visit: Yes Status: Chronic Qualifiers: Diabetes mellitus complication status: without complication Diabetes mellitus fci insulin use: without fci use Qualified Code(s): E11.9 - Type 2 diabetes mellitus without complications - Assessment / Plan Additional Assessment/Plan Details: INR is improved after vitamin K, given continued hemoptysis continue to hold Coumadin. Check CT scan sure we are not also dealing with a pulmonary embolism. In terms of the patient's pneumonia, he still not has defervesced completely, I will continue IV antibiotics. Fluids are now stopped. Oxygen and breathing therapies as necessary. Clearly this patient has been much sicker and more ill than his pneumonia severity index would predict.
--- NOTE | 2017-04-17 17:34 | DI ---
EXAM: CT Angiography Chest With Intravenous Contrast CLINICAL HISTORY: ITS.REASON pneumonia, hemoptysis, question PE Physician Notes: Tech Comments: TECHNIQUE: Axial computed tomographic angiography images of the chest with intravenous contrast using pulmonary embolism protocol. MIP reconstructed images were created and reviewed. COMPARISON: CT 06/07/16 FINDINGS: Pulmonary arteries: No central pulmonary embolus. Aorta: No thoracic aortic aneurysm. Lungs: Ground-glass and interstitial opacities throughout the right lung. Component of pulmonary fibrosis. Mild debris in the airway. Pleural space: Small bilateral pleural effusions. Heart: No cardiomegaly. No pericardial effusion. Bones/joints: Surgical changes related to the left shoulder. Compression deformity of T12, chronic appearing. Soft tissues: Patchy subcutaneous edema Lymph nodes: Mediastinal and hilar nodes. Gallbladder and bile ducts: Cholecystectomy. IMPRESSION: 1. No central pulmonary embolus. 2. Ground-glass and interstitial opacities throughout the right lung. Could be from asymmetric edema pneumonia or hemorrhage. There is a broader differential.
[2017-04-17] MEDS: ATORVASTATIN 40 MG TABLET PO SCH (20:22)
[2017-04-17] MEDS: traZODone Tab 50 MG TAB PO PRN (21:51)
[2017-04-18] MEDS: ALBUTEROL SULFATE 2.5 MG/3 ML NEB PRN (03:44)
[2017-04-18] MEDS: IPRATROPIUM/ALBUTEROL SULFATE 3 ML NEB NEB SCH ×4 (06:55→19:16)
[2017-04-18] MEDS: LOSARTAN 25 MG TABLET PO SCH (08:26)
[2017-04-18] MEDS: GUAIFENESIN 600 MG TABLET PO SCH ×2 (08:26→20:06)
[2017-04-18] MEDS: ASPIRIN 81 MG (BABY) CHEWABLE TABLET PO SCH (08:27)
[2017-04-18] MEDS: ASCORBIC ACID 500 MG TABLET PO SCH (08:27)
[2017-04-18] MEDS: PANTOPRAZOLE 40 MG TABLET PO SCH (09:33)
[2017-04-18] MEDS: LEVOTHYROXINE 100 MCG TABLET PO SCH (09:49)
[2017-04-18] MEDS: cefTRIAXone Inj 2 GM in Sodium Chloride 0.9% 100 ML IV SCH (09:49)
[2017-04-18] MEDS: Levofloxacin (Premix) 750 MG/150 ML PIGGYBACK IV SCH (13:06)
--- NOTE | 2017-04-18 14:20 | PDOC(PROG) ---
Date and Time of Service: 04/18/2017, 1409 Interval History: no chest pain, still coughing a lot with hemoptysis. fever curve still shows temperatures in the 100's range. Spoke with son today at bedside. I think we should class switch the antibiotic for pneumonia. Steroids can still be controversial with pneumonia, but may need to be considered. He does have COPD he has a diagnosis. The CT scan really showed a lot of honeycombing, pulmonary fibrosis, and probable bleed in the lungs which I suspect did happen in the setting of a pneumonia. I think we should keep the INR is subtherapeutic to allow this him out the cystic clear. Effusion was too small to be able to tap. Objective : Data - Labs CBC and BMP: 04/17/17 04:50 04/17/17 04:50 - Imaging CT Scan Status: Image Reviewed by Me (On my review of the image, there is an extensive right-sided pneumonia, honeycombing, some small effusions present.), Report Reviewed by Me Objective : Exam - General General Appearance: No Acute Distress, Cooperative Additional General Exam Details: Vital Signs - Last Taken Temperature 98.7 F 04/18/17 11:25 Pulse Rate 69 04/18/17 11:25 Respiratory Rate 21 04/18/17 11:25 Blood Pressure 157/64 04/18/17 11:25 Pulse Ox 96 04/18/17 11:25 Selected Entries 04/17/17 13:00 04/18/17 03:39 Temperature 100.1 F H 99.1 F - Head Head Exam: Normal Inspection, Normocephalic, Atraumatic - Eye Eye Exam: No Scleral Icterus - ENT ENT Exam: Mucous Membranes Moist - Respiratory Respiratory Exam: Breathing Non Labored, Crackles, Wheezes, Coarse Breath Sounds - Cardiovascular Cardiovascular Exam: RRR, No Murmur, No Clicks, No Gallops, No Rubs, No JVD - GI/Abdominal GI/Abdominal Exam: Normal Bowel Sounds, Non Tender, Non Distended, Soft - Extremities Extremities Exam: No Edema Present, No Cyanosis Present, Clubbing Present - Neurological Neurological Exam: Alert, Oriented x 3, No Facial Droop, Speech Intact / Clear, Moves All Extremities Equally Assessment and Plan - Patient Problems (1) Community acquired pneumonia Current Visit: Yes Status: Acute Code(s): J18.9 - Pneumonia, unspecified organism Qualifiers: Laterality: right Lung location: unspecified part of lung Qualified Code( s): J18.9 - Pneumonia, unspecified organism (2) COPD (chronic obstructive pulmonary disease) Current Visit: Yes Status: Acute Code(s): J44.9 - Chronic obstructive pulmonary disease, unspecified Qualifiers: COPD type: emphysema Emphysema type: unspecified Qualified Code(s): J43.9 - Emphysema, unspecified (3) History of pulmonary embolism Current Visit: Yes Status: Chronic Code(s): Z86.711 - Personal history of pulmonary embolism (4) Coronary artery disease Current Visit: Yes Status: Acute Code(s): I25.10 - Atherosclerotic heart disease of [place] coronary artery without angina pectoris Qualifiers: Coronary Disease-Associated Artery/Lesion type: [place] artery Associated angina: without angina (5) Elevated INR Current Visit: Yes Status: Acute Code(s): R79.1 - Abnormal coagulation profile (6) Benign hypertension Current Visit: Yes Status: Chronic (7) Diabetes mellitus, type 2 Current Visit: Yes Status: Chronic Qualifiers: Diabetes mellitus complication status: without complication Diabetes mellitus terminal gauger supervisor insulin use: without terminal gauger supervisor use Qualified Code(s): E11.9 - Type 2 diabetes mellitus without complications - Assessment / Plan Additional Assessment/Plan Details: I think at this time, I'm going to class switch to Levaquin. Probably the patient may need a course of 7-10 days total of IV antibiotics with the severity of this pneumonia. He continues to have fevers, and I think if they persist, we may need even consider interventional pulmonology evaluation for this. I'm going to hold off on steroids but would not be opposed to considering starting them if symptoms persist. Check labs again tomorrow. Keep the INR is subtherapeutic with the hemoptysis until that clears and improves. Oxygen and breathing therapies as necessary. Check labs tomorrow.
[2017-04-18] MEDS: ACETAMINOPHEN 325 MG TABLET PO PRN (18:46)
[2017-04-18] MEDS: ATORVASTATIN 40 MG TABLET PO SCH (20:06)
[2017-04-18] MEDS: traZODone Tab 50 MG TAB PO PRN (22:26)
[2017-04-19 04:43] LABS: VENOUS PH 7.41 (7.32-7.42)
[2017-04-19 05:01] LABS: BASOPHILS # (AUTO) 0.07 10*3/UL; BASOPHILS % (AUTO) 0.8 % (0-1); EOSINOPHILS # (AUTO) 0.43 10*3/UL; EOSINOPHILS % (AUTO) 4.7 % (0-8); Hematocrit [HCT] 28.5 % (42.0-52.0); Hemoglobin [HGB] 9.1 g/dL (14.0-18.0); LYMPHOCYTES # (AUTO) 0.94 10*3/uL; MEAN CORPUSCULAR HGB CONC 31.9 g/dL (33-37); MEAN CORPUSCULAR VOLUME 84.6 FL (80-90); MEAN PLATELET VOLUME 9.2 FL (7.4-12.2); MONOCYTES # (AUTO) 1.31 10*3/UL (0.3-0.8); MONOCYTES % (AUTO) 14.2 % (5-15); NEUTROPHILS # (AUTO) 6.38 10*3/UL; NEUTROPHILS % (AUTO) 69.1 % (50-80); RED BLOOD COUNT 3.37 10^6/uL (4.70-6.10)
[2017-04-19] MEDS: LEVOTHYROXINE 100 MCG TABLET PO SCH (05:26)
[2017-04-19 05:27] LABS: BLOOD UREA NITROGEN 16 mg/dL (7-22)
[2017-04-19 06:25] LABS: PLATELET MORPHOLOGY COMMENT NORMAL MORPHOLOGY (NORM); RBC MORPHOLOGY COMMENT NORMAL MORPHOLOGY (NORM); WBC MORPHOLOGY COMMENT NORMAL MORPHOLOGY (NORM)
[2017-04-19] MEDS: IPRATROPIUM/ALBUTEROL SULFATE 3 ML NEB NEB SCH ×4 (06:42→19:01)
[2017-04-19] MEDS: PANTOPRAZOLE 40 MG TABLET PO SCH (07:15)
[2017-04-19] MEDS: ASPIRIN 81 MG (BABY) CHEWABLE TABLET PO SCH (09:03)
[2017-04-19] MEDS: ASCORBIC ACID 500 MG TABLET PO SCH (09:03)
[2017-04-19] MEDS: GUAIFENESIN 600 MG TABLET PO SCH ×2 (09:03→20:44)
[2017-04-19] MEDS: LOSARTAN 25 MG TABLET PO SCH (09:03)
--- NOTE | 2017-04-19 09:57 | PDOC(PROG) ---
Date and Time of Service: 04/19/2017 9:56 AM Interval History: Subjective Patient came into the hospital after he fell. He said the night before he came in he felt warm and chilly. As he tried to get up he fell and he couldn't get up. The medics were called and they brought him to the hospital he was found to have pneumonia. Initially he had hemoptysis and that seemed to be resolved. He said his breathing is shallow. There is no chest pain. he is somewhat better compared to when he came in but he still feels weak though. He uses a walker at home. He is not on oxygen at home. Objective : Data - Labs CBC and BMP: 04/19/17 04:24 04/19/17 04:24 Objective : Exam - General General Appearance: No Acute Distress, Cooperative - Head Head Exam: Normal Inspection - Eye Eye Exam: Normal Appearance - ENT ENT Exam: Normal Exam - Neck Neck Exam: Normal Inspection - Respiratory Additional Respiratory Exam Details: Crackles and occasional wheeze On the right side. - Cardiovascular Cardiovascular Exam: RRR - GI/Abdominal GI/Abdominal Exam: Normal Bowel Sounds, Non Tender, Non Distended, Soft, No Organomegaly - Rectal Rectal Exam: Deferred - External Exam: Deferred - Extremities Extremities Exam: Normal Inspection - Back Back Exam: Normal Inspection - Neurological Neurological Exam: Alert, Oriented x 3, CN II-XII Intact, No Facial Droop, Speech Intact / Clear, Moves All Extremities Equally - Psychiatric Psychiatric Exam: Normal Affect - Integumentary Integumentary Exam: Normal Color Assessment and Plan - Patient Problems (1) Community acquired pneumonia Current Visit: Yes Status: Acute Comment: I think we'll continue with the current treatment with Levaquin. Will repeat his labs tomorrow. He is very weak I think at one point in time he may need to be on swing bed. We'll think about adding steroids to his medications if he continued to wheeze. Code(s): J18.9 - Pneumonia, unspecified organism Qualifiers: Laterality: right Lung location: unspecified part of lung Qualified Code( s): J18.9 - Pneumonia, unspecified organism (2) Diabetes mellitus, type 2 Current Visit: Yes Status: Chronic Comment: Same med Qualifiers: Diabetes mellitus complication status: without complication Diabetes mellitus usp insulin use: without parts counterman use Qualified Code(s): E11.9 - Type 2 diabetes mellitus without complications (3) Benign hypertension Current Visit: Yes Status: Chronic Comment: Same medications (4) Elevated INR Current Visit: Yes Status: Acute Comment: INR was prolonged initially and this was reversed. Will consider putting him on Lovenox tomorrow or the day after. Code(s): R79.1 - Abnormal coagulation profile (5) COPD (chronic obstructive pulmonary disease) Current Visit: Yes Status: Acute Comment: Continue breathing treatment Code(s): J44.9 - Chronic obstructive pulmonary disease, unspecified Qualifiers: COPD type: emphysema Emphysema type: unspecified Qualified Code(s): J43.9 - Emphysema, unspecified (6) History of pulmonary embolism Current Visit: Yes Status: Chronic Comment: Consider starting him on Lovenox tomorrow or the day after. Code(s): Z86.711 - Personal history of pulmonary embolism
--- NOTE | 2017-04-19 11:41 | PTI REPORT ---
Thank you for the referral of Jimmie Raphael. He was seen on 04/19/17 for an inpatient evaluation secondary to pneumonia and weakness. SUBJECTIVE: The patient is an 81-year-old male who states that he was taken to the hospital on Tuesday morning after falling out of his chair. The patient states that he went to stand up and when he woke back up he was on his floor. The patient states that he was feeling ill all last week and he had gone to the doctor on Tuesday. When he was admitted to the hospital on Tuesday he was told that he has pneumonia. The patient states he has been coughing a lot and having some difficulties breathing. He is currently on 5 liters of oxygen but denies any oxygen use at home. The patient lives in [facility] by himself. Prior to his admittance to the hospital the patient was primarily using a four wheeled walker for ambulation and was getting around well. He was independent with ADLs and did a little cooking himself but was receiving assistance for cleaning and laundry. The patient does have his son and [id number] who live in [facility] who help him out as well and he does come in for physical therapy two times a week where he does an independent program for strengthening. The patient states that he feels very weak and that his lungs hurt right now from all of the coughing. PAST MEDICAL HISTORY: Past medical history can be found in the patient's medical record. OBJECTIVE FINDINGS: General observations: The patient is alert and oriented to setting upon PT arrival. The patient was sitting up in the chair. The patient was coughing during parts of the evaluation and was having a productive cough. Strength: The patient demonstrated 3/5 bilateral lower extremity strength in a seated position. Transfers: The patient was able to independently perform a sit to stand transfer. Ambulation: The patient was able to ambulate with a standard walker x20 feet and stand at the counter to perform ADLs. The patient was able to ambulate back to the chair and sit down. Oxygen saturation: Following ambulation the patient's oxygen saturation was checked and he was at 80% on 5 liters of oxygen. The patient was instructed in proper breathing techniques and he was able to bring his oxygen up slightly but he did vary between 84-88% on his 5 liters of oxygen. Endurance: The patient fatigued after 2 minutes of standing. The patient states when he is standing his legs feel weak like they are going to give out. ASSESSMENT: The patient has fair rehab potential secondary to his age and past medical history. Problem List: Decreased endurance and activity tolerance Decreased energy conservation Generalized weakness Short-Term Goals: To be met by discharge from inpatient: Patient will be able to perform all transfers safely and independently. Patient will be able to ambulate at least 150 feet with four wheeled walker while maintaining oxygen saturation in an appropriate range. Patient will be able to tolerate 30 minutes of physical therapy activity for strengthening of his bilateral upper and lower extremities in order to improve his strength and functional mobility and do so while maintaining oxygen saturation in an appropriate range. Long-Term Goals: To be met following discharge from inpatient: Patient may attend outpatient physical therapy to further improve his strength and functional mobility. TREATMENT PLAN: Patient will be seen B.I.D during the week and one time per day over the weekend as an inpatient to work on transfers, ambulation, energy conservation techniques, and general strengthening to improve his functional mobility and strength. INITIAL TREATMENT: Treatment today consisted of the initial evaluation. The patient was left in chair with chair alarm set and call light within reach. The therapist did discuss oxygen saturation with nursing staff. JUNE
[2017-04-19] MEDS: Levofloxacin (Premix) 750 MG/150 ML PIGGYBACK IV SCH (12:18)
--- NOTE | 2017-04-19 16:01 | OT.PROG ---
Progress Note Progress Note: Occupational Therapy: 15 min S: pt stated that he was feeling tired and weak.pt agreed to therapy services. O: pt was educated on energy conservations techniques specifically types of breathing exercises. pt completed YTB exercises of biceps curls x10, triceps x10 , chest pulls x10, shoulder flexion x10 while practicing breathing techniques. pt was able to verbalize his goals for therapy and what he wants to work on in therapy sessions. A: pt was an active participant in therapy today. P: continue POC
--- NOTE | 2017-04-19 16:35 | PT.PROG ---
Progress Note Progress Note: S. Patient stated that he is tired this afternoon however he is willing to get out of bed for a bit. O. Patient performed supine to sit and sit to stand transfer, then ambulated 40 feet to the sanches and back to bed. He performed seated marches and heel toe raises, then transferred back to supine where he was left with alarm and call light. A. Patient tolerated ambulation well, he required short standing rest breaks to recover his breath, he was able to ambulate with standard walker and Min assist , he requires frequent verbal cues to remember to take deep breaths. He would continue to benefit from skilled therapy to increase strength and mobility. P. Continue POC.
[2017-04-19] MEDS: ATORVASTATIN 40 MG TABLET PO SCH (20:44)
[2017-04-19] MEDS: traZODone Tab 50 MG TAB PO PRN (22:25)
[2017-04-20] MEDS: LEVOTHYROXINE 100 MCG TABLET PO SCH (04:53)
[2017-04-20 05:12] LABS: Hematocrit [HCT] 28.9 % (42.0-52.0); Hemoglobin [HGB] 9.2 g/dL (14.0-18.0); MEAN CORPUSCULAR HEMOGLOBIN 26.7 PG (27-31); MEAN CORPUSCULAR HGB CONC 31.8 g/dL (33-37); RED BLOOD COUNT 3.44 10^6/uL (4.70-6.10)
[2017-04-20 05:28] LABS: BLOOD UREA NITROGEN 15 mg/dL (7-22)
[2017-04-20 05:54] LABS: BAND NEUTROPHILS % 0 % (0-10); BASOPHILS % (MANUAL) 1 % (0-1); EOSINOPHILS % (MANUAL) 3 % (0-8); MONOCYTES % (MANUAL) 6 % (0-12); NEUTROPHILS % (MANUAL) 77 % (50-80); PLATELET MORPHOLOGY COMMENT NORMAL MORPHOLOGY (NORM); RBC MORPHOLOGY COMMENT NORMAL MORPHOLOGY (NORM); WBC MORPHOLOGY COMMENT NORMAL MORPHOLOGY (NORM)
[2017-04-20] MEDS: PANTOPRAZOLE 40 MG TABLET PO SCH (06:43)
[2017-04-20] MEDS: IPRATROPIUM/ALBUTEROL SULFATE 3 ML NEB NEB SCH ×4 (06:49→18:46)
[2017-04-20] MEDS: ACETAMINOPHEN 325 MG TABLET PO PRN ×2 (06:54→23:57)
--- NOTE | 2017-04-20 08:22 | PDOC(PROG) ---
Date and Time of Service: 04/20/2017 8:19 AM Interval History: Subjective Continue to have the cough. Does not think that there is blood. Still somewhat short of breath and still denying chest pain. He Said he made maybe about 40% improvement compared to when he came in. Objective : Data - Labs CBC and BMP: 04/20/17 04:18 04/20/17 04:18 Objective : Exam - General General Appearance: No Acute Distress, Cooperative - Head Head Exam: Normal Inspection - Eye Eye Exam: Normal Appearance - ENT ENT Exam: Normal Exam - Neck Neck Exam: Normal Inspection - Respiratory Additional Respiratory Exam Details: Crackles heard at the right lung rare wheeze - Cardiovascular Cardiovascular Exam: RRR - GI/Abdominal GI/Abdominal Exam: Normal Bowel Sounds, Non Tender, Non Distended, Soft, No Organomegaly - Rectal Rectal Exam: Deferred - External Exam: Deferred - Extremities Extremities Exam: Normal Inspection - Back Back Exam: Normal Inspection - Neurological Neurological Exam: Alert, Oriented x 3, CN II-XII Intact, No Facial Droop, Speech Intact / Clear, Moves All Extremities Equally - Psychiatric Psychiatric Exam: Normal Affect Assessment and Plan - Patient Problems (1) Community acquired pneumonia Current Visit: Yes Status: Acute Comment: I think we'll continue current antibiotics his white count is normalized. Continue PT and OT. He is still weak continue PT at one point need to be on swing bed. Did speak to the [id number] did explain that to her yesterday. Apparently he was recently discovered to have elevated PSA was supposed to follow-up with urology today but this was canceled. Code(s): J18.9 - Pneumonia, unspecified organism Qualifiers: Laterality: right Lung location: unspecified part of lung Qualified Code( s): J18.9 - Pneumonia, unspecified organism (2) Benign hypertension Current Visit: Yes Status: Chronic Comment: Continue losartan (3) Elevated INR Current Visit: Yes Status: Acute Comment: This is resolved Code(s): R79.1 - Abnormal coagulation profile (4) COPD (chronic obstructive pulmonary disease) Current Visit: Yes Status: Acute Comment: Continue nebulizers Code(s): J44.9 - Chronic obstructive pulmonary disease, unspecified Qualifiers: COPD type: emphysema Emphysema type: unspecified Qualified Code(s): J43.9 - Emphysema, unspecified (5) History of pulmonary embolism Current Visit: Yes Status: Chronic Comment: Coumadin was withheld because of the hemoptysis. I think will put him on Lovenox starting tomorrow for prophylaxis. Code(s): Z86.711 - Personal history of pulmonary embolism
[2017-04-20] MEDS: GUAIFENESIN 600 MG TABLET PO SCH ×2 (08:35→20:02)
[2017-04-20] MEDS: LOSARTAN 25 MG TABLET PO SCH (08:35)
[2017-04-20] MEDS: ASCORBIC ACID 500 MG TABLET PO SCH (08:36)
[2017-04-20] MEDS: ASPIRIN 81 MG (BABY) CHEWABLE TABLET PO SCH (08:36)
--- NOTE | 2017-04-20 10:35 | OT.PROG ---
Progress Note Progress Note: Occupational Therapy: 10 min S: pt stated he was tired after walking with PT but agreed to therapy. O: pt completed AROM exercises of shoulder flexion x10, biceps x10, chest press x10. pt completed YTB exercises of biceps curls x10, triceps x10. pt needed rest breaks every 3 repetitions. A: pt was an active participant in therapy today and would benefit from continues skilled therapy services to increase activity tolerance and strength. P: continue POC
[2017-04-20] MEDS: Levofloxacin (Premix) 750 MG/150 ML PIGGYBACK IV SCH (13:36)
[2017-04-20] MEDS: NORMAL SALINE 10 ML SYRINGE FLUSH IVP PRN (13:36)
--- NOTE | 2017-04-20 16:01 | OT.PROG ---
Progress Note Progress Note: Occupational Therapy: 20 min S: pt agreed to therapy and stated he was doing okay. O: pt completed functional activities to include 2# biceps curls x20 and chest [id number] followed by ADL task of toileting. pt is I in all toileting tasks with SBA for safety. pt completed functional ambulation with FWW and CGA for safety x15'. A: pt was an active participant in therapy today. pt fatigues easily after at least 10' of walking. P: continues POC
--- NOTE | 2017-04-20 16:09 | PT.PROG ---
Progress Note Progress Note: S. Patient stated that he is very tired this morning. O. patient ambulated 60 feet then was left in his chair with OT for further therapy. A. Patient tolerated ambulation fair, he struggles with weakness and fatigue. He required min assist during ambulation and 2 short standing rest breaks. He would continue to benefit from skilled therapy to increase strength and mobility. P. Continue POC.
--- NOTE | 2017-04-20 16:14 | PT.PROG ---
Progress Note Progress Note: S. Patient stated that he is feeling a little better this afternoon, however he reports he is still tired. O. Patient performed seated exercises in the form of; marches, long arc quads, heel toe raises, and pillow squeezes all x 15 bilaterally, then ambulated 5 feet from his chair to his bed where he was left with call light and alarm. A. Patient continues to be very weak and struggles with fatigue, he would continue to benefit from skilled therapy to help increase endurance and strength. P. Continue POC.
[2017-04-20] MEDS: ATORVASTATIN 40 MG TABLET PO SCH (20:03)
[2017-04-20] MEDS: traZODone Tab 50 MG TAB PO PRN (21:43)
[2017-04-21] MEDS: LEVOTHYROXINE 100 MCG TABLET PO SCH (04:39)
[2017-04-21] MEDS: IPRATROPIUM/ALBUTEROL SULFATE 3 ML NEB NEB SCH ×4 (06:29→19:05)
[2017-04-21] MEDS: PANTOPRAZOLE 40 MG TABLET PO SCH (07:48)
[2017-04-21] MEDS: ASCORBIC ACID 500 MG TABLET PO SCH (08:16)
[2017-04-21] MEDS: ASPIRIN 81 MG (BABY) CHEWABLE TABLET PO SCH (08:16)
[2017-04-21] MEDS: LOSARTAN 25 MG TABLET PO SCH (08:16)
[2017-04-21] MEDS: GUAIFENESIN 600 MG TABLET PO SCH ×2 (08:16→20:11)
[2017-04-21] MEDS ORDERED: ENOXAPARIN SODIUM 40 MG/0.4 ML SYRINGE SUBCUT SCH (09:00)
--- NOTE | 2017-04-21 10:25 | PDOC(PROG) ---
Date and Time of Service: 04/21/2017 10:24 AM Interval History: Subjective Patient is still coughing, there is no blood. Maybe his breathing is a somewhat better compared to what it was, he still very weak though. Objective : Data - Labs CBC and BMP: 04/20/17 04:18 04/20/17 04:18 Objective : Exam - General General Appearance: No Acute Distress, Cooperative - Head Head Exam: Normal Inspection, Atraumatic - Eye Eye Exam: Normal Appearance - ENT ENT Exam: Normal Exam - Neck Neck Exam: Normal Inspection - Respiratory Additional Respiratory Exam Details: Harsh breath sounds with occasional wheeze. On the right side. - Cardiovascular Cardiovascular Exam: RRR - GI/Abdominal GI/Abdominal Exam: Normal Bowel Sounds, Non Tender, Non Distended, Soft, No Organomegaly - Rectal Rectal Exam: Deferred - External Exam: Deferred - Extremities Extremities Exam: Normal Inspection - Back Back Exam: Normal Inspection - Neurological Neurological Exam: Alert, Oriented x 3, CN II-XII Intact, Speech Intact / Clear , Moves All Extremities Equally - Psychiatric Psychiatric Exam: Normal Affect - Integumentary Integumentary Exam: Normal Color Assessment and Plan - Patient Problems (1) Community acquired pneumonia Current Visit: Yes Status: Acute Comment: Continue current antibiotics. Consider switching to swing bed tomorrow Code(s): J18.9 - Pneumonia, unspecified organism Qualifiers: Laterality: right Lung location: unspecified part of lung Qualified Code( s): J18.9 - Pneumonia, unspecified organism (2) Benign hypertension Current Visit: Yes Status: Chronic Comment: Continue losartan (3) COPD (chronic obstructive pulmonary disease) Current Visit: Yes Status: Acute Comment: Continue breathing treatment. Code(s): J44.9 - Chronic obstructive pulmonary disease, unspecified Qualifiers: COPD type: emphysema Emphysema type: unspecified Qualified Code(s): J43.9 - Emphysema, unspecified (4) History of pulmonary embolism Current Visit: Yes Status: Chronic Comment: We started him on Lovenox continue Code(s): Z86.711 - Personal history of pulmonary embolism
--- NOTE | 2017-04-21 10:33 | OT.PROG ---
Progress Note Progress Note: Occupational Therapy: 25 min S: pt stated he was feeling okay today and tired. O: pt completed functional transfer from chair to shower chair with MOD A x2. pt completed ADL task of showering with MOD A for washing body. pt was MAX A for donning socks and gown while completing dressing. A: pt was an active participant in therapy today. pt lacks motivation when fatigued to complete tasks. P: continue POC
--- NOTE | 2017-04-21 11:51 | OTI REPORT ---
Thank you for the referral of Jimmie Raphael. He was seen on 04/19/17 for an occupational therapy inpatient evaluation secondary to pneumonia and weakness. SUBJECTIVE: The patient is an 81-year-old male who fell at his home on Tuesday. The patient lives at [facility]; he states he just moved in a few months ago. He ended up developing pneumonia. He has been coughing up blood. He states he feels very weak. The patient is typically not on oxygen. He does have a walk in shower with a chair. Typically the patient does his own cooking but he does have assistance with laundry, cleaning, and some grocery shopping. Sometimes the patient uses a cane and sometimes he uses his walker depending on his balance. The patient's main goal is to return home. PAST MEDICAL HISTORY: Past medical history can be found in the patient's medical record. OBJECTIVE FINDINGS: Transfers: The patient was able to come from sit to stand with mod assist. Range of motion: Upper extremity range of motion is somewhat limited. He has 0 to 80 degrees of shoulder flexion, 0 to 70 degrees of shoulder abduction, elbow flexion/extension are within normal limits, and wrist flexion/extension are within normal limits. Strength: Strength in his shoulders is 3+/5 within his available range. Elbow flexion/extension is 4/5. Wrist flexion/extension is 3+/5. Endurance: The patient is demonstrating severe shortness of breath. Oxygen: Today we completed standing activity at sink and his oxygen levels after standing x4 minutes dropped down to 82%. It took the patient a really long time to recover on 6 liters of oxygen. In fact, his saturation still fluctuated between 87-90%. OT did get his nurse in order to assess this. They were going to keep him at 5 liters and continue to assess him throughout the morning. Activities of daily living: The patient requires mod assist for balance at this time for lower extremity dressing. He was independent with upper extremity dressing after set up. ASSESSMENT: Problem List: Decreased endurance Decreased activity tolerance Decreased upper extremity strength Decreased ability to perform ADLs Short-Term Goals: To be met by discharge from inpatient: Patient will increase upper extremity strength to 4+/5. Patient will improve activity tolerance in order to stand x10 minutes and keep oxygen levels above 90%. Patient will learn three energy conservation techniques and apply them during his sessions. Patient will be able to dress self independently including set up. Patient will be able to shower self independently. Long-Term Goals: To be met following discharge from inpatient: Patient will return home, demonstrating independence and safety with all ADLs and functional tasks with modified independence. TREATMENT PLAN: Patient will be seen B.I.D during the week and one time per day over the weekend as an inpatient to address the above goals and objectives. INITIAL TREATMENT: Treatment today consisted of the initial evaluation followed by the patient completing lower extremity dressing with mod assist for balance. He became very short of breath. The patient did want to go to the sink to try brushing his teeth and hair. We stood x4 minutes and the patient had to bend over because he was short of breath. We go the patient back to the chair and his oxygen levels had dropped to the low 80s. The patient was instructed in pursed lipped breathing; it took him several minutes to recover from this. JUNE
[2017-04-21] MEDS: Levofloxacin (Premix) 750 MG/150 ML PIGGYBACK IV SCH (12:19)
--- NOTE | 2017-04-21 16:02 | OT.PROG ---
Progress Note Progress Note: Occupational Therapy: 30 min S: pt stated he was feeling good but was tired. O: pt completed yellow theraputty exercises of power hand pattern marker R/L x10, thumb flexion R/L x10. pt completed YTB exercises of biceps curls x20, triceps x20, chest pulls x20. pt completed 1# BUE exercises of chest press x10, shoulder flexion x10. pt completed functional transfer from chair to w/c with FWW and MIN A for standing. pt completed functional transfer w/c to EOB with MIN A for standing and CGA for safety. A: pt was an active participant in therapy today and continues to show improvement in activity tolerance and strength. P: continue POC
--- NOTE | 2017-04-21 17:24 | PT.PROG ---
Progress Note Progress Note: S. Patient stated that he would like to get out of his room. O. Patient ambulated 15 feet to the wheelchair and was wheeled to the therapy gym where he used the nu-step x 15 minutes, then ambulated 30 feet around the therapy gym where he was left with OT for further therapy. A. Patient tolerated therapy fair, he continues to be short of breath however was able to perform more cardiovascular exercise than previously. Patient would continue to benefit from skilled therapy at this time. P. Continue POC.
--- NOTE | 2017-04-21 17:25 | PT.PROG ---
Progress Note Progress Note: Patient refused therapy this morning due to fatigue from having a shower.
[2017-04-21] MEDS: ATORVASTATIN 40 MG TABLET PO SCH (20:11)
[2017-04-21] MEDS: ACETAMINOPHEN 325 MG TABLET PO PRN (20:16)
[2017-04-21] MEDS: traZODone Tab 50 MG TAB PO PRN (23:19)
[2017-04-22] MEDS: ALBUTEROL SULFATE 2.5 MG/3 ML NEB PRN (00:13)
[2017-04-22] MEDS: LEVOTHYROXINE 100 MCG TABLET PO SCH (05:08)
[2017-04-22 05:16] LABS: Hematocrit [HCT] 27.8 % (42.0-52.0); Hemoglobin [HGB] 8.8 g/dL (14.0-18.0); MEAN CORPUSCULAR HEMOGLOBIN 26.4 PG (27-31); MEAN CORPUSCULAR HGB CONC 31.7 g/dL (33-37); MEAN CORPUSCULAR VOLUME 83.5 FL (80-90); MEAN PLATELET VOLUME 9.2 FL (7.4-12.2); RED BLOOD COUNT 3.33 10^6/uL (4.70-6.10)
[2017-04-22 05:52] LABS: PLATELET MORPHOLOGY COMMENT NORMAL MORPHOLOGY (NORM); WBC MORPHOLOGY COMMENT NORMAL MORPHOLOGY (NORM)
[2017-04-22 06:04] LABS: BAND NEUTROPHILS % 8 % (0-10); BASOPHILS % (MANUAL) 1 % (0-1); EOSINOPHILS % (MANUAL) 3 % (0-8); MONOCYTES % (MANUAL) 7 % (0-12); NEUTROPHILS % (MANUAL) 66 % (50-80)
[2017-04-22 06:05] LABS: RBC MORPHOLOGY COMMENT SEE COMMENTS (NORM)
[2017-04-22] MEDS: IPRATROPIUM/ALBUTEROL SULFATE 3 ML NEB NEB SCH ×3 (06:39→14:51)
[2017-04-22] MEDS: PANTOPRAZOLE 40 MG TABLET PO SCH (07:10)
[2017-04-22] MEDS: NORMAL SALINE 10 ML SYRINGE FLUSH IVP PRN (08:40)
[2017-04-22] MEDS: ONDANSETRON 4 MG/2 ML VIAL IVP PRN (08:40)
[2017-04-22] MEDS: ASPIRIN 81 MG (BABY) CHEWABLE TABLET PO SCH (08:41)
[2017-04-22] MEDS: LOSARTAN 25 MG TABLET PO SCH (08:41)
[2017-04-22] MEDS: GUAIFENESIN 600 MG TABLET PO SCH (08:41)
[2017-04-22] MEDS: ACETAMINOPHEN 325 MG TABLET PO PRN (08:41)
[2017-04-22] MEDS: ASCORBIC ACID 500 MG TABLET PO SCH (08:41)
--- NOTE | 2017-04-22 12:00 | PT.PROG ---
Progress Note Progress Note: S. Patient stated that he is very tired this morning and he is feeling depressed. O. Patient performed seated exercises in the form of; marches, long arc quads, heel toe raises, pillow squeezes, clam shells, sit to stands all x 10. Patient was left in chair with alarm and call light. A. Patient tolerated exercise fair, he continues to struggle with weakness and fatigue, he would benefit from additional strengthening in a swing bed status. P. continue POC.
--- NOTE | 2017-04-22 13:26 | OT.PROG ---
Progress Note Progress Note: S: pt reports that he is really tired this morning and he thinks he is becoming depressed. O: pt was seen in his room in the a.m. He completed only active motion activities this morning. He completed BUE shoulder flex, abd and bicep flex. Due to fatigue pt stopped doing any activities at this time. A: pt was extremely tired this morning therefore affected his overall activity tolerance. Will try more this afternoon. P: continue per POC.
[2017-04-22] MEDS: Levofloxacin (Premix) 750 MG/150 ML PIGGYBACK IV SCH (13:48)
--- NOTE | 2017-04-22 14:21 | PDOC(PROG) ---
Date and Time of Service: 04/22/2017 to 2:23pm Interval History: Subjective He said he still have the cough. No more hemoptysis. Coughing brown stuff according to him. No more fever. Still weak. Objective : Data - Labs CBC and BMP: 04/22/17 04:27 04/20/17 04:18 Objective : Exam - General General Appearance: No Acute Distress, Cooperative - Head Head Exam: Normal Inspection - Eye Eye Exam: Normal Appearance - ENT ENT Exam: Normal Exam - Neck Neck Exam: Normal Inspection - Respiratory Additional Respiratory Exam Details: Decreased air entry, minimal crackles at the bases - Cardiovascular Cardiovascular Exam: RRR - GI/Abdominal GI/Abdominal Exam: Normal Bowel Sounds, Non Tender, Non Distended, Soft, No Organomegaly - Rectal Rectal Exam: Deferred - External Exam: Deferred Exam: Deferred - Extremities Extremities Exam: Normal Inspection - Back Back Exam: Normal Inspection - Neurological Neurological Exam: Alert, Oriented x 3, CN II-XII Intact, Speech Intact / Clear , Moves All Extremities Equally - Psychiatric Psychiatric Exam: Normal Affect - Integumentary Integumentary Exam: Normal Color Assessment and Plan - Patient Problems (1) Community acquired pneumonia Current Visit: Yes Status: Acute Comment: Today is day 5 of Levaquin. His oxygen need down to 3.5 from 5. Still weak. Hemoglobin dropped to 8.8 because of that I did stop the Lovenox he received only one shot, and I did speak with the hook tender in [place] and she recommended bronchoscopy I did talk to the patient about transfer he wants to speak to his family before he agrees upon that. Apparently in 2014 he was transferred to [facility] and it was discovered that he had PE and had pneumonia at that time. He did have a bronchoscopy then. Code(s): J18.9 - Pneumonia, unspecified organism Qualifiers: Laterality: right Lung location: unspecified part of lung Qualified Code( s): J18.9 - Pneumonia, unspecified organism (2) Benign hypertension Current Visit: Yes Status: Chronic Comment: Same med (3) COPD (chronic obstructive pulmonary disease) Current Visit: Yes Status: Acute Comment: Continue bronchodilator treatment Code(s): J44.9 - Chronic obstructive pulmonary disease, unspecified Qualifiers: COPD type: emphysema Emphysema type: unspecified Qualified Code(s): J43.9 - Emphysema, unspecified (4) History of pulmonary embolism Current Visit: Yes Status: Chronic Comment: Continue holding the Coumadin. We stopped the Lovenox, had only one shot. Code(s): Z86.711 - Personal history of pulmonary embolism
--- NOTE | 2017-04-22 15:54 | OT.PROG ---
Progress Note Progress Note: Occupational Therapy: 20 min S: pt stated he was feeling better but still not that great and agreed to therapy. O: pt completed functional transfer from reclining chair to w/c with MIN A for stability. pt completed YTB exercises of biceps curls x15, triceps x15, shoulder extension x15, chest pulls x15. pt needed 1 min rest break in between each exercises and when switching arms. pt completed 1# BUE exercises of biceps curls x15, shoulder flexion x15. A: pt was an active participant in therapy today. pts activity tolerance is still low but continues to improve. P: continue POC
--- NOTE | 2017-04-22 16:55 | DCSUMMARY ---
Hospitalization Summary Admit Date: 04/22/2017 Discharge Date: 04/22/17 Hospital Course: Transfer diagnoses 1. Right-sided pneumonia, possible pulmonary hemorrhage 2. COPD on no oxygen at home 3. History of PE 4. History of diabetes on no medication 5. History of hypertension 6. History of coronary artery disease status post stents before 7. History of hypertension 8. Anemia 9. Elevated PSA, recently discovered. Hospital course This is an 81 years old male with medical history significant for history of COPD, not on oxygen at home, also history of for PE on Coumadin. Was brought to the hospital for evaluation because he fell and could not get up. When he was brought to the hospital, he complained also from shortness of breath, cough , chills and hemoptysis. Evaluation in the ER revealed right-sided pneumonia. He was started on IV antibiotics. And was admitted to the hospital by Dr. Aguilera please see his note. He was initially treated with Rocephin and Zithromax. His Coumadin was withheld. His initial INR was 3.9 went up to 4.99 so this was reversed with vitamin K. While he was here he had some fevers so his antibiotics were switched on the to Levaquin. His highest white count was 13 and that was on the . Blood culture remained negative. Influenza testing was negative. Urine streptococcal pneumonia antigen was negative. His hemoglobin did drop gradually to 9.1 on the and remained stable at that's on the and was 9.2 on the . He did have a CT of the chest and that was on the which showed Ground-glass and interstitial opacities throughout the right lung. Could be from asymmetric edema pneumonia or hemorrhage. I saw him later on during his hospital stay we continued with the same plan. His oxygen requirement initially was 5 L of oxygen. He remained weak we started physical therapy. He did receive a dosage of Lovenox as a prophylactic a dosage for PE after stabilization of hemoglobin and no further hemoptysis That was on the . Though he looks somewhat improved, today his hemoglobin level was 8.8 so we stopped the Lovenox, there was still no hemoptysis. I did discuss the patient condition with the accounting machine operator in [place] and she reviewed his CT of the chest and she recommended bronchoscopy because of possibility of pulmonary hemorrhage. I did speak with the patient and his daughter in [facility] and they both agreed on transfer. Did speak with the hospitalist Dr. Garces and he accepted the patient. Discharge instruction Diet regular Activity as started Medications Active Medications Acetaminophen (Tylenol) 650 mg PO Q6H PRN PRN Reason: pain or temperature Last Admin: 04/22/17 08:41 Dose: 650 mg Albuterol Sulfate (Albuterol Neb Soln 0.083%) 2.5 mg NEB RTQID PRN PRN Reason: Shortness of Breath Last Admin: 04/22/17 00:13 Dose: 2.5 mg Albuterol/Ipratropium (Duoneb Neb Soln) 3 ml NEB RTQID [facility] Last Admin: 04/22/17 14:51 Dose: 3 ml Ascorbic Acid (Vitamin C) 1,000 mg PO DAILY [facility] Last Admin: 04/22/17 08:41 Dose: 1,000 mg Aspirin (Aspirin Chewable Tab) 81 mg PO DAILY [facility] Last Admin: 04/22/17 08:41 Dose: 81 mg Atorvastatin Calcium (Lipitor) 80 mg PO BEDTIME [facility] Last Admin: 04/21/17 20:11 Dose: 80 mg Guaifenesin (Mucinex Er Tab) 1,200 mg PO BID [facility] Last Admin: 04/22/17 08:41 Dose: 1,200 mg Levofloxacin/Dextrose (Levaquin (Premix)) 750 mg in 150 mls @ 100 mls/hr IV Q24H [facility] Last Admin: 04/22/17 13:48 Dose: 100 mls/hr Levothyroxine Sodium (Synthroid) 100 mcg PO DAILY@0530 [facility] Last Admin: 04/22/17 05:08 Dose: 100 mcg Lidocaine HCl (Lidocaine Buffered Inj) 0.5 ml SUBD ONCE PRN PRN Reason: IV Starts Losartan Potassium (Cozaar) 25 mg PO DAILY [facility] Last Admin: 04/22/17 08:41 Dose: 25 mg Ondansetron HCl (Zofran Inj) 4 mg IVP Q4H PRN PRN Reason: NAUSEA / VOMITING Last Admin: 04/22/17 08:40 Dose: 4 mg Pantoprazole Sodium (Protonix) 40 mg PO AC BK [facility] Last Admin: 04/22/17 07:10 Dose: 40 mg Sodium Chloride (Saline Flush) 5 - 20 ml IVP BID PRN PRN Reason: Flush Last Admin: 04/22/17 08:40 Dose: 10 ml Tizanidine HCl (Zanaflex Tab) 4 mg PO Q6H PRN PRN Reason: Muscle Spasms Trazodone HCl (Desyrel Tab) 150 mg PO BEDTIME PRN PRN Reason: Sleep Last Admin: 04/21/17 23:19 Dose: 150 mg Follow-up per [facility] post discharge Condition at discharge was stable for transfer Exam - Vitals Vital Signs: Vital Signs Temperature 98.8 F Temperature Source Temporal Artery Scan Pulse Rate [Apical] 80 Pulse Rate [Pulse Oximeter 78 Left] Pulse Rate 74 Respiratory Rate 18 Blood Pressure [Left Arm] 119/48 Pulse Ox 92 Oxygen Flow Rate 3 Oxygen Delivery Method Nasal Cannula Height 5 ft 7 in Weight 164 lb 6.4 oz Patient Problems - Patient Problem List (1) Community acquired pneumonia Current Visit: Yes Status: Acute Code(s): J18.9 - Pneumonia, unspecified organism Qualifiers: Laterality: right Lung location: unspecified part of lung Qualified Code( s): J18.9 - Pneumonia, unspecified organism Category: Medical (2) Benign hypertension Current Visit: Yes Status: Chronic Category: Medical (3) COPD (chronic obstructive pulmonary disease) Current Visit: Yes Status: Acute Code(s): J44.9 - Chronic obstructive pulmonary disease, unspecified Qualifiers: COPD type: emphysema Emphysema type: unspecified Qualified Code(s): J43.9 - Emphysema, unspecified Category: Medical (4) History of pulmonary embolism Current Visit: Yes Status: Chronic Code(s): Z86.711 - Personal history of pulmonary embolism Category: Medical
--- NOTE | 2017-04-22 17:04 | PT.PROG ---
Progress Note Progress Note: S. Patient stated that he is feeling a little better this afternoon and would like to go to the therapy gym. O. Patient performed seated exercises in the form of; marches, long arc quads, heel toe raises, ball squeezes, clam shells, sit to stands all x 10. Patient was returned to his room where he was left in chair with alarm and call light. A. Patient tolerated therapy fair this afternoon, he continues to require frequent rest breaks to recover his O2 sats, he continues to be weak and would continue to benefit from strengthening. P. continue POC.
[2017-04-22 17:58] VITALS: BP 133/57; RESP 20; TEMP 98.4; O2SAT 90
== END 2017-04-22 17:56 | disposition short-term general hospital (02) | DRG 195 ==
LOC: ER 07:29 → MED/SURG 09:16
PROVIDERS: ADMIT Family Medicine; ATTEND Family Medicine

== ENCOUNTER 2017-05-17 11:23 | Inpatient (IN) ==
[2017-05-17] MEDS ORDERED: IPRATROPIUM/ALBUTEROL SULFATE 3 ML NEB NEB ONE (12:00)
[2017-05-17] MEDS ORDERED: Sodium Chloride 0.9% 1,000 ML PRIMARY IV ONE (12:00)
[2017-05-17] MEDS ORDERED: NORMAL SALINE 10 ML SYRINGE FLUSH IVP PRN (12:00)
[2017-05-17 12:18] LABS: VENOUS PH 7.49 (7.32-7.42)
[2017-05-17 12:25] LABS: BASOPHILS # (AUTO) 0.01 10*3/UL; BASOPHILS % (AUTO) 0.1 % (0-1); EOSINOPHILS # (AUTO) 0.36 10*3/UL; EOSINOPHILS % (AUTO) 1.8 % (0-8); Hemoglobin [HGB] 10.2 g/dL (14.0-18.0); LYMPHOCYTES # (AUTO) 1.34 10*3/uL; MEAN CORPUSCULAR HEMOGLOBIN 26.9 PG (27-31); MEAN CORPUSCULAR HGB CONC 31.9 g/dL (33-37); MEAN CORPUSCULAR VOLUME 84.4 FL (80-90); MEAN PLATELET VOLUME 8.7 FL (7.4-12.2); MONOCYTES % (AUTO) 7.2 % (5-15); NEUTROPHILS # (AUTO) 16.35 10*3/UL; NEUTROPHILS % (AUTO) 83.6 % (50-80); RED BLOOD COUNT 3.79 10^6/uL (4.70-6.10)
[2017-05-17 12:45] LABS: PLATELET MORPHOLOGY COMMENT NORMAL MORPHOLOGY (NORM); RBC MORPHOLOGY COMMENT NORMAL MORPHOLOGY (NORM); WBC MORPHOLOGY COMMENT NORMAL MORPHOLOGY (NORM)
[2017-05-17 12:56] LABS: BLOOD UREA NITROGEN 32 mg/dL (7-22); BUN/CREATININE RATIO 29.09 (6-20); SERUM ALBUMIN 2.9 g/dL (3.5-4.8)
[2017-05-17] MEDS ORDERED: Ertapenem Inj 1 GM in Sodium Chloride 0.9% 100 ML IV ONE (13:19)
--- NOTE | 2017-05-17 13:26 | DI ---
XR CXR 2VW PA/LAT,05/17/2017 12:00 PM: Clinical History: Cough and fever. Previous Exam: Multiple prior comparisons to include a CT chest from May 12, 2017, PA and lateral ch est performed April 17, 2017 and chest x-ray performed June 07, 2016 Findings: PA and lateral views of the chest are obtained, and demonstrate increasing interstitial and airspace disease within the right lung. There is also decreased volume of the right hemithorax compared with t he left. The cardiomediastinum is shifted rightward. There is some increasing subsegmental atelectasis in the left lung base. The bony thorax is unremarkable and stable. Impression: Worsening mixed interstitial and airspace process on the right with decreasing lung volumes. Given th e patient's fever and cough, this is most likely secondary to an infectious process.
--- NOTE | 2017-05-17 13:58 | PDOC ---
Dyspnea HPI - General Chief Complaint: Dyspnea Stated Complaint: difficulty breathing Date Seen by Provider: 05/17/17 Time Seen by Provider: 11:45 Source: POSITIVE: Patient, Other (Son) Exam Limitations: POSITIVE: No limitations Treatment Prior to Arrival: REPORTS: Oxygen, Other (DuoNeb nebulizer) Nurse's Notes Reviewed & Considered: Yes - History of Present Illness Initial Comments: The patient is an 81-year-old male who is brought to the emergency room by his son. Patient was admitted to the hospital in April with right interstitial lung disease and pneumonia. Patient was again admitted to this facility around May 12 and was transferred to [facility]. He was discharged from [facility] yesterday. Patient had a CTA of the chest around May 12 , which showed significant right interstitial lung disease but no pulmonary emboli. Patient has a DO NOT RESUSCITATE status; this issue was discussed at length with patient's son. Patient has had increased dyspnea since discharge from [facility] yesterday. Patient is on oxygen supplementation at home. He is not presently on any antibiotics. He takes metformin and DuoNeb nebulizer treatments. He had a DuoNeb treatment approximately 2 hours TERMITE EXTERMINATOR. Patient has a cough productive of mucopurulent sputum. Possibly some occasional hemoptysis. History of COPD and diabetes. Body Location Affected: REPORTS: Chest Timing: REPORTS: Gradual, Getting Worse Duration: >24 hours (As above; worse since yesterday.) Severity: Moderate Quality: REPORTS: Other (Patient denies any chest pain or other pain.) Initiating Event: DENIES: Upper Respiratory Illness, Out of Medications, Sports , Exercise, Aspiration, Choking, Allergy, Exposure - Smoke, Exposure - Mold, Exposure - Other Allergen Context: REPORTS: Other (See above) Exacerbated By: REPORTS: Exertion Associated Symptoms: REPORTS: Fever (Subjectively), Productive Cough ( Productive of mucopurulent sputum) Similar Symptoms Previously: Yes Recently seen/treated/hospitalized: Yes Any Prior Injuries Related to Current Complaint?: No - Patient Home Medications Home Medications: Home Medications Albuterol Sulfate [Ventolin Hfa] 1 - 2 puff INH Q4-6H #1 inhaler 09/23/14 Warfarin Sodium 5 - 7.5 mg PO DAILY #100 tab 05/12/16 aspirin 81 mg chewable tablet 81 mg PO QDAY tab 01/05/17 atorvastatin 80 mg tablet 80 mg PO QDAY #90 tab 01/05/17 losartan 25 mg tablet 25 mg PO QDAY #90 tab 01/05/17 tizanidine 4 mg capsule 4 mg PO BEDTIME PRN #90 cap 01/05/17 trazodone 50 mg tablet 150 mg PO QHS PRN #90 tab 01/05/17 Dexlansoprazole [Dexilant] 60 mg PO DAILY 04/15/17 Albuterol/Ipratrop Neb Soln [Duoneb Neb Soln] 3 ml NEB RTQ6H #120 ampul.neb 06/22 Ascorbic Acid [Vitamin C] 1,000 mg PO DAILY #90 tab 05/08/17 Levothyroxine Sodium [Synthroid] 125 mcg PO DAILY@0530 #90 tab 05/08/17 guaiFENesin/Codeine Liquid [Robitussin AC Liquid] 5 ml PO Q6H PRN #120 ml - Patient Allergies Allergies/Adverse Reactions: Allergies 3 Allergy/AdvReac Type Severity Reaction Status Date / Time silver Allergy HIVES Verified 05/17/17 13:12 [From Tegaderm AG Mesh] Sulfa (Sulfonamide AdvReac Intermediate VOMITING Verified 05/17/17 13:12 Antibiotics) tape AdvReac HIVES Uncoded 05/17/17 13:12 Past Medical History - heen HEENT History: Cataracts, Other (please comment) Additional HEENT History: WEARS GLASSES Cardiovascular History: Hypertension, CAD, Hyperlipidemia Additional Cardiovasular History: CARDIAC STENTS X3 Respiratory History: Asthma, COPD, Shortness of Breath, Pneumonia, Home Oxygen Use, Other (please comment) Additional Respiratory History: IDEOPATHIC PULMONARY FIBROSIS. 2 L OCCASIONALLY Gastrointestinal History: GERD, Diverticulitis, Hiatal Hernia, Other (please comment) Additional Gastrointestinal History: COLON RESECTION IN Genitourinary History: Denies History Endocrine History: Type 2 Diabetes (oral) Musculoskeletal History: Arthritis, Back Pain, Muscle Weakness, Limited ROM, Joint Pain, Physical Limitation Prosthesis or Implant: No Additional Musculoskeletal History: RIGHT ANKLE FUSED, LEFT ACHILES TENDON TEAR. HX OF INFECTED DISKS/ IV ABX THERAPY Neurological History: Denies History Blood Disorders: Denies History Psychiatric History: Denies History History of Sexually Transmitted Diseases: No Male Reproductive History: Denies History Cancer History: Denies History In Past Year Been Physically Harmed or Verbally Threatened: No History of MDRO: Yes Type of MDRO: MRSA Other Type of MDRO: sputum History of Other Communicable Diseases: No Tobacco Use: Former Smoker Alcohol Use: Occasionally In the Past 12 Months, Have Used or Abuse Any Substance: None Previous Surgical History: Yes Type / Date of Surgery: ankle fusioncolon resectionappendectomydiscitiscataractsLEFT ROTATOR CUFF, CHOLECYSTECTOMY, CARDIAC STENTS X3 Anesthesia Reactions: No Malignant Hyperthermia: No Significant Family History: Cancer Additional Family History: father of esophageal ca Past Medical History Reviewed: Reviewed - No Changes ROS - Limitations ROS Limitations: No Limitations Constitution: REPORTS: Fever Cardiovascular: REPORTS: Denies Cardiac Symptoms Respiratory: REPORTS: Cough Productive (Productive of mucopurulent sputum), Shortness Of Breath Neurological: REPORTS: Denies Neuro Symptoms Gastrointestinal: REPORTS: Denies GI Symptoms Endocrine: REPORTS: Denies Symptoms Musculoskeletal: REPORTS: Denies MS Symptoms Genitourinary: REPORTS: Denies Symptoms Eyes: REPORTS: Denies Symptoms ENT: REPORTS: Denies Symptoms Skin: REPORTS: Denies Skin Symptoms Lympathic: REPORTS: Denies Lympathic Symptoms Immunologic: POSITIVE: Denies Symptoms Psychiatric: POSITIVE: Denies Psych Symptoms Dyspnea Physical Exam - General Appearance General Appearance: REPORTS: Alert, Cooperative, No Evidence of Trauma, Mild Distress (Respiratory distress). DENIES: No Acute Distress - HEENT HEENT: POSITIVE: Head Inspection Nml, Eyes Inspection Nml, Ears Inspection Nml, Nose Inspection Nml, Oral/Dental Inspect. Nml, Pharynx Inspect. Nml, PERRL, EOMI - Neck Neck: REPORTS: Normal Inspection, No Carotid Bruit - Respiratory Respiratory: REPORTS: No Pleuritic Chest Pain, Speaks Full Sentences, No Pain on Inspiration, Respiratory Distress (Mild), Fatigue, Rales (Both lung alegre, especially on right with rales and crackles). DENIES: No Respiratory Distress, Breath Sounds Normal - Cardiovascular Cardiovascular: REPORTS: Regular Rate and Rhythm, Heart Sounds Normal, Equal Pulses, Strong Pulses, No Murmur, No Gallop, No Friction Rub, No JVD Peripheral Pulses: Radial (R): 2+, Radial (L): 2+ - Abdomen Abdomen: Soft: (All Quadrants), Normal Bowel Sounds: (All Quadrants), Denies Tenderness: (All Quadrants), No Splenomegaly: (All Quadrants), No Hepatomegaly: (All Quadrants), No Guarding: (All Quadrants), No Rebound: (All Quadrants), No Palpable Pulse: (All Quadrants), No Palpabale Mass: (All Quadrants), No Distention: (All Quadrants), No Rigidity: (All Quadrants) - Skin Skin: REPORTS: Intact, Normal For Race, Warm, Dry, No Rash - Extremities Extremity: Non-Tender: (All Extremities), Normal ROM: (All Extremities), Normal Inspection: (All Extremities) - Neurological / Psychological Neurological: POSITIVE: Affect Apporpriate, Oriented X3, wire inserter Normal As Tested, Motor Normal, Sensation Normal Dyspnea Progress - Results Reviewed by me Xrays/CTs/US Reviewed by me: Yes Discussed with Radiologist: Yes Radiology Findings: Chest x-ray shows severe interstitial disease in the right lung; radiologist reports that this is worse since May 12. Chest x-ray is not as bad as it was in April. Lab Results Reviewed by Me: Yes (lactic acid 2.3; blood cultures done; BNP 1470 ; d-dimer 2.0) CBC and BMP: 05/17/17 12:23 05/17/17 12:23 - Patient's Progress Pain Medication Addressed: POSITIVE: Not Applicable School/Work Release Addressed: POSITIVE: Not Applicable Re-Examine Time: 13:20 Re-Examine Comment: Patient placed on Vapotherm and patient states he feels better with this; oxygen saturation on nasal cannula on arrival was 80%. On Vapotherm its between 92 and 93%. Patient given a DuoNeb nebulizer treatment. 2 blood cultures were drawn and patient given a gram of Invanz IV. Case discussed with hospitalist, and patient admitted for further evaluation and treatment. Status: POSITIVE: Improved, Re-Examined Air Movement: POSITIVE: Fair Quality Measure Initiative: CAP: POSITIVE: SaO2, VS, Antibiotic(s), BC, CXR or CT - Consult Consult (If Yes, Name of Consulting MD & Time Called): Yes (Dr. Patel, hospitalist, [id number]) Counseled: POSITIVE: Patient, Family (Son), RE: Lab Results, RE: Radiology Results, RE: DX, RE: Need for F/U Patient Care Time - Estimated PCT Patient Care Time (In Minutes): 60 Vital Signs - Recent Vital Signs Vital Signs: Vital Signs (Last 8 hours) Temp Pulse Pulse Resp BP Pulse Ox 05/17/17 12:13 84 20 90 05/17/17 12:12 87 20 90 05/17/17 12:00 87 05/17/17 11:31 99.3 F 92 24 129/53 80 - VS Reviewed Vital Signs Reviewed: Yes Discharge Clinical Impression: Respiratory distress, Interstitial lung disease, Hypoxia, Pneumonia Discharge Disposition: Admit to Inpatient Condition: Fair Follow Up With: IRAIS MORA [Primary Care Provider] - Date Decision to Admit to Inpatient: 05/17/17 Time Decision to Admit to Inpatient: 13:20
--- NOTE | 2017-05-17 14:24 | PDOC ---
HPI - History of Present Illness Date of Service: 05/17/17 Time of Service: 15:00 Chief Complaint: Shortness of breath worsened today History of Present Illness: This is an 81 years old male with medical history significant for history of COPD, history of previous PE was on Coumadin, history of diabetes on no medication, hypertension, history of previous coronary artery disease with previous stents before, history of recently discovered elevated PSA and recent admission to our hospital for right sided pneumonia there was a possibility also of pulmonary hemorrhage and because of that he was transferred to [facility] he had a bronchoscopy which showed some inflammation the plan was for him to have a lung biopsy after a month. He was transferred back to our hospital and stayed her on swing bed status. He was Discharged home and then presented again on the because of shortness of breath and from there he was transferred to the [facility]. The son saw the surgeon and decided because of his medical condition not to do the biopsy so the patient was admitted there at [facility] he was not started on antibiotics he was just treated with prednisone and was discharged yesterday on no medication except being on oxygen. Apparently was doing well he was on 2 L of oxygen. This morning he became more short of breath coughing, there may be some streaks of blood. he is not sure whether he had a fever and because of the worsening hypoxemia and shortness of breath he was brought to the ER initially was put on the Vapotherm as his sats were low. Chest x-ray showed worsening of the infiltrate was given antibiotics with Invanz and was admitted. The patient decided to be DO NOT RESUSCITATE. He denied chest pain. He is feeling weak. Past Medical History Medical History: 1. COPD. 2. Diabetes mellitus type II. 3. Coronary artery disease status post stents 3. 4. History of discitis with resultant chronic back pain. 5. Hypertension. 6. History of pulmonary embolism in 2010. I do not have documentation on the circumstances of that. 7. Admission in April 2017 for pneumonia, there was question also of pulmonary hemorrhage so he was transferred to [facility] he had a bronchoscopy this was nonrevealing. A plan was to have a biopsy in one month time however apparently this was canceled. 8. Elevated PSA Surgical History: 1. Discitis surgery. 2. Stents 3. 3. Right ankle fusion. 4. Appendectomy. 5. Cholecystectomy. 6. Bronchoscopy Pertinent Family History: No history of heart disease in the family. Past Social History: Used to smoke. . Has healthy children, one of whom lives in [place] and a son that lives here in [place]. Does not drink alcohol. 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 Tobacco Use: Former Smoker In the Past 12 Months, Have Used or Abuse Any of the Following Substance: None Medication / Allergies Home Medications: Home Medications 3 Medication Instructions Recorded Confirmed Type Albuterol Sulfate [Ventolin Hfa] 1 - 2 puff INH Q4-6H #1 inhaler 09/23/14 History Warfarin Sodium 5 - 7.5 mg PO DAILY #100 tab 05/12/16 10/14/16 Clinic aspirin 81 mg chewable tablet 81 mg PO QDAY tab 01/05/17 05/17/17 History atorvastatin 80 mg tablet 80 mg PO QDAY #90 tab 01/05/17 05/17/17 Rx losartan 25 mg tablet 25 mg PO QDAY #90 tab 01/05/17 05/17/17 Rx tizanidine 4 mg capsule 4 mg PO BEDTIME PRN #90 cap 01/05/17 05/17/17 History trazodone 50 mg tablet 150 mg PO QHS PRN #90 tab 01/05/17 05/17/17 History Dexlansoprazole [Dexilant] 60 mg PO DAILY 04/15/17 05/17/17 History Albuterol/Ipratrop Neb Soln 3 ml NEB RTQ6H #120 ampul.neb 05/08/17 05/17/17 Rx [Duoneb Neb Soln] Ascorbic Acid [Vitamin C] 1,000 mg PO DAILY #90 tab 05/08/17 05/17/17 Rx Levothyroxine Sodium [Synthroid] 125 mcg PO DAILY@0530 #90 tab 05/08/17 Rx guaiFENesin/Codeine Liquid 5 ml PO Q6H PRN #120 ml 05/08/17 05/17/17 Rx [Robitussin AC Liquid] Allergies/Adverse Reactions: Allergies 3 Allergy/AdvReac Type Severity Reaction Status Date / Time silver Allergy HIVES Verified 05/17/17 13:12 [From Tegaderm AG Mesh] Sulfa (Sulfonamide AdvReac Intermediate VOMITING Verified 05/17/17 13:12 Antibiotics) tape AdvReac HIVES Uncoded 05/17/17 13:12 Review of Systems - Review of Systems All Systems: Reviewed & No Additional Complaints Except as Stated Exam - General General Appearance: No Acute Distress, Thin - Head Head Exam: Normal Inspection, Atraumatic - Eye Eye Exam: POSITIVE: Normal Appearance - ENT ENT Exam: POSITIVE: Normal Exam - Neck Neck Exam: Normal Inspection - Respiratory Additional Respiratory Exam Details: Clear expiratory wheezes. And some crackles on the right lung. - Cardiovascular Cardiovascular Exam: POSITIVE: RRR - GI/Abdominal GI/Abdominal Exam: POSITIVE: Normal Bowel Sounds, Non Tender, Non Distended, Soft, No Organomegaly - Rectal Rectal Exam: POSITIVE: Deferred - External Exam: POSITIVE: Deferred Exam: POSITIVE: Deferred - Extremities Extremities Exam: POSITIVE: Normal Inspection - Back Back Exam: POSITIVE: Normal Inspection - Neurological Neurological Exam: POSITIVE: Alert, Oriented x 3, CN II-XII Intact, No Facial Droop, Moves All Extremities Equally - Psychiatric Psychiatric Exam: POSITIVE: Flat Affect Results - Labs CBC and BMP: 05/17/17 12:23 05/17/17 12:23 - Imaging Status: Report Reviewed by Me (Chest X ray Worsening mixed interstitial and airspace process on the right with decreasing lung volumes. Given the patient's fever and cough, this is most likely secondary to an infectious process.) Assessment and Plan - Patient Problems (1) Interstitial lung disease Current Visit: Yes Status: Acute Comment: His presentation may be secondary to exacerbation of interstitial lung disease. The other possibility is an infection. I did explain that to him and to his son I did tell them we'll try a course of antibiotics and steroid and see whether that would make a difference. I'll try to the speak with the cnc operator programmer and see if they have other suggestion. According to The son cnc operator programmer refused to see him while he is in the hospital there because he was not sick enough. Code(s): J84.9 - Interstitial pulmonary disease, unspecified (2) Gastroesophageal reflux disease Current Visit: No Status: Chronic Comment: He is on Dexilant continue (3) Hypothyroidism Current Visit: Yes Status: Acute Comment: Continue Synthroid Code(s): E03.9 - Hypothyroidism, unspecified (4) Hypertension Current Visit: No Status: Acute Comment: Continue losartan Code(s): I10 - Essential (primary) hypertension Qualifiers: Hypertension type: essential hypertension Qualified Code(s): I10 - Essential (primary) hypertension
[2017-05-17] MEDS ORDERED: LIDOCAINE W/ SODIUM BICARB 0.5 ML SYR SUBD PRN (14:49)
[2017-05-17] MEDS: Piperacillin/Tazobactam Inj 3.375 GM in Sodium Chloride 0.9% 100 ML IV SCH ×2 (15:37→21:16)
[2017-05-17] MEDS: methylPREDNISolone 125 MG/2 ML VIAL IVP SCH ×2 (15:38→21:13)
[2017-05-17] MEDS: ALBUTEROL SULFATE 2.5 MG/3 ML NEB SCH ×2 (15:59→19:16)
[2017-05-17] MEDS: PANTOPRAZOLE 40 MG TABLET PO SCH (17:08)
[2017-05-17] MEDS: ACETAMINOPHEN 325 MG TABLET PO PRN (17:08)
[2017-05-17] MEDS: Sodium Chloride 0.9% 1,000 ML PRIMARY IV SCH (17:13)
[2017-05-17] MEDS: ATORVASTATIN 40 MG TABLET PO SCH (21:14)
[2017-05-18] MEDS: methylPREDNISolone 125 MG/2 ML VIAL IVP SCH ×3 (03:17→20:16)
[2017-05-18] MEDS: Piperacillin/Tazobactam Inj 3.375 GM in Sodium Chloride 0.9% 100 ML IV SCH ×4 (03:18→20:16)
[2017-05-18] MEDS: Sodium Chloride 0.9% 1,000 ML PRIMARY IV SCH (04:18)
[2017-05-18] MEDS: LEVOTHYROXINE 125 MCG TABLET PO SCH (04:37)
[2017-05-18] MEDS: ALBUTEROL SULFATE 2.5 MG/3 ML NEB SCH ×4 (06:44→19:10)
[2017-05-18] MEDS: PANTOPRAZOLE 40 MG TABLET PO SCH ×2 (06:54→16:21)
[2017-05-18 07:08] LABS: BLOOD UREA NITROGEN 32 mg/dL (7-22)
[2017-05-18 07:18] LABS: BASOPHILS # (AUTO) 0.01 10*3/UL; BASOPHILS % (AUTO) 0.1 % (0-1); EOSINOPHILS # (AUTO) 0 10*3/UL; EOSINOPHILS % (AUTO) 0 % (0-8); Hematocrit [HCT] 29.4 % (42.0-52.0); Hemoglobin [HGB] 9.2 g/dL (14.0-18.0); LYMPHOCYTES # (AUTO) 0.48 10*3/uL; MEAN CORPUSCULAR HEMOGLOBIN 26.5 PG (27-31); MEAN CORPUSCULAR HGB CONC 31.3 g/dL (33-37); MEAN CORPUSCULAR VOLUME 84.7 FL (80-90); MEAN PLATELET VOLUME 8.9 FL (7.4-12.2); MONOCYTES % (AUTO) 2.9 % (5-15); NEUTROPHILS # (AUTO) 15.97 10*3/UL; RED BLOOD COUNT 3.47 10^6/uL (4.70-6.10)
[2017-05-18 07:41] LABS: PLATELET MORPHOLOGY COMMENT NORMAL MORPHOLOGY (NORM); RBC MORPHOLOGY COMMENT NORMAL MORPHOLOGY (NORM); WBC MORPHOLOGY COMMENT NORMAL MORPHOLOGY (NORM)
[2017-05-18] MEDS: ASPIRIN 81 MG (BABY) CHEWABLE TABLET PO SCH (08:21)
[2017-05-18] MEDS: LOSARTAN 25 MG TABLET PO SCH (08:21)
--- NOTE | 2017-05-18 08:23 | PDOC(PROG) ---
Date and Time of Service: 05/18/2017 8 AM Interval History: Subjective Patient feels a little bit better today compared to yesterday. He is still having a cough with some phlegm production. No chest pain. He still feel that he cannot take a deep breath. Objective : Data - Labs CBC and BMP: 05/18/17 06:54 05/18/17 06:54 Objective : Exam - General General Appearance: No Acute Distress, Cooperative - Head Head Exam: Normal Inspection - Eye Eye Exam: Normal Appearance - ENT ENT Exam: Normal Exam - Neck Neck Exam: Normal Inspection - Respiratory Additional Respiratory Exam Details: Decreased air entry with few expiratory wheezes and crackles on the right side. - Cardiovascular Cardiovascular Exam: RRR - GI/Abdominal GI/Abdominal Exam: Normal Bowel Sounds, Non Tender, Non Distended, Soft, No Organomegaly - Rectal Rectal Exam: Deferred - External Exam: Deferred - Extremities Extremities Exam: Normal Inspection - Back Back Exam: Normal Inspection - Neurological Neurological Exam: Alert, Oriented x 3, CN II-XII Intact, Speech Intact / Clear , Moves All Extremities Equally - Psychiatric Psychiatric Exam: Normal Affect - Integumentary Integumentary Exam: Normal Color Assessment and Plan - Patient Problems (1) Interstitial lung disease Current Visit: Yes Status: Acute Comment: I think we'll continue with the current plan with treatment with steroid and antibiotics. We'll cut back though on the dosage of the steroid. We'll try to speak to library services dean today and see their opinion. Code(s): J84.9 - Interstitial pulmonary disease, unspecified (2) Gastroesophageal reflux disease Current Visit: No Status: Chronic Comment: Same medications (3) Hypothyroidism Current Visit: Yes Status: Acute Comment: Same med Code(s): E03.9 - Hypothyroidism, unspecified (4) Hypertension Current Visit: No Status: Acute Comment: Same medications Code(s): I10 - Essential (primary) hypertension Qualifiers: Hypertension type: essential hypertension Qualified Code(s): I10 - Essential (primary) hypertension
[2017-05-18] MEDS: ATORVASTATIN 40 MG TABLET PO SCH (20:16)
[2017-05-18] MEDS: ACETAMINOPHEN 325 MG TABLET PO PRN (20:16)
[2017-05-18] MEDS: traZODone Tab 50 MG TAB PO SCH (21:37)
[2017-05-19] MEDS: Piperacillin/Tazobactam Inj 3.375 GM in Sodium Chloride 0.9% 100 ML IV SCH ×4 (03:00→20:47)
[2017-05-19] MEDS: methylPREDNISolone 125 MG/2 ML VIAL IVP SCH ×2 (03:00→16:00)
[2017-05-19] MEDS: LEVOTHYROXINE 125 MCG TABLET PO SCH (05:34)
[2017-05-19] MEDS: ALBUTEROL SULFATE 2.5 MG/3 ML NEB SCH ×4 (06:48→18:32)
[2017-05-19] MEDS: PANTOPRAZOLE 40 MG TABLET PO SCH ×2 (07:25→16:07)
[2017-05-19] MEDS ORDERED: Loperamide Tab 2 MG TABLET PO PRN (07:32)
[2017-05-19] MEDS: ASPIRIN 81 MG (BABY) CHEWABLE TABLET PO SCH (08:10)
[2017-05-19] MEDS: LOSARTAN 25 MG TABLET PO SCH (08:10)
[2017-05-19] MEDS: NORMAL SALINE 10 ML SYRINGE FLUSH IVP PRN ×2 (08:11→15:59)
--- NOTE | 2017-05-19 08:43 | PDOC(PROG) ---
Date and Time of Service: 05/19/2017 8:45 AM Interval History: Subjective He had some soft stool twice, one last night and one this morning. There is no abdominal pain. His cough somewhat better he said. His shortness of breath is also somewhat better. He did work with physical therapy yesterday. Objective : Data - Labs CBC and BMP: 05/18/17 06:54 05/18/17 06:54 Objective : Exam - General General Appearance: No Acute Distress, Cooperative, Thin - Head Head Exam: Normal Inspection, Atraumatic - Eye Eye Exam: Normal Appearance - ENT ENT Exam: Normal Exam - Neck Neck Exam: Normal Inspection - Respiratory Additional Respiratory Exam Details: Decreased air entry with few expiratory wheezes.. - Cardiovascular Cardiovascular Exam: RRR - GI/Abdominal GI/Abdominal Exam: Normal Bowel Sounds, Non Tender, Non Distended, Soft, No Organomegaly - Rectal Rectal Exam: Deferred - External Exam: Deferred - Extremities Extremities Exam: Normal Inspection - Back Back Exam: Normal Inspection - Neurological Neurological Exam: Alert, Oriented x 3, CN II-XII Intact, Moves All Extremities Equally - Psychiatric Psychiatric Exam: Normal Affect - Integumentary Integumentary Exam: Normal Color Assessment and Plan - Patient Problems (1) Interstitial lung disease Current Visit: Yes Status: Acute Comment: Continue current treatment with antibiotics and steroid. We'll cut on the dosage of the steroid. Yesterday I did speak with the director airport in [place] we did send the CT and the chest x-ray. Recommendation is to continue the current treatment. But she is of the opinion that he probably need to have a lung biopsy because the diagnosis still not clear. The unusual thing is just a predominant right lung involvement. I did call the surgeon Dr Rogers yesterday and left a message. I did call them again to see exactly what's his position about the biopsy left a message again with his nurse. Code(s): J84.9 - Interstitial pulmonary disease, unspecified (2) Gastroesophageal reflux disease Current Visit: No Status: Chronic Comment: Continue Protonix (3) Hypothyroidism Current Visit: Yes Status: Acute Comment: Same med Code(s): E03.9 - Hypothyroidism, unspecified (4) Hypertension Current Visit: No Status: Acute Comment: Continue losartan Code(s): I10 - Essential (primary) hypertension Qualifiers: Hypertension type: essential hypertension Qualified Code(s): I10 - Essential (primary) hypertension
--- NOTE | 2017-05-19 15:39 | PTI REPORT ---
Thank you for the referral of Jimmie Raphael. He was seen on 05/18/17 for an inpatient evaluation secondary to weakness. SUBJECTIVE: The patient is an 81-year-old male who was referred to us by Dr. Patel for strengthening due to some respiratory issues that he has been working with both here in the [facility] and in [place]. He has pretty much been hospitalized over the last three weeks or better, spending some of that time in [place] and then again in [place]. He is back here today to work on rehabilitation and other medical treatments as his condition has been more stabilized. He states that he really feels as though he has slid downhill from approximately one week ago when he was here. The patient states he is able to ambulate a206-214 feet at best. He states his legs and knees are very sore and painful and he states his legs feel very "woozy". The patient states he has been given a new diagnosis of cystic fibrosis and we are not sure what that means for his detention treatment. The patient does have a history of ankle pain and neuropathy of both feet. PAST MEDICAL HISTORY: Past medical history can be found in the patient's medical record. OBJECTIVE FINDINGS: General observations: The patient was alert and oriented x3 in his room. Ambulation: With a wheeled walker, the patient was able to ambulate approximately 40 feet before fatiguing. Strength: Upper extremity strength is limited to below 90 degrees due to shoulder issues and shoulder pain. Bed mobility: The patient needs minimal assist of one to transfer from supine to sit. Transfers: The patient needs minimal assist of one to transfer from sit to stand. Oxygen: The patient is currently on three liters of oxygen and his oxygen saturation dropped into the mid 80s with that minimal amount of walking. Balance: The patient's balance is affected. We attempted to get a Haddad score today but did not get very far due to fatigue and painful knees. We will attempt again tomorrow. The patient is a HIGH risk for falling at this point. ASSESSMENT: Problem List: Weakness of upper and lower extremities Patient is a HIGH risk for falling Decreased endurance Short-Term Goals: To be met by discharge from inpatient: Patient will be able to transfer from bed to stand independently. Patient will be able to ambulate 100 feet with least restrictive assistive device for household ambulation. Patient will increase lower extremity strength to 4/5. Long-Term Goals: To be met following discharge from inpatient: Patient will be able to return home with his family at some point in time. TREATMENT PLAN: Patient will be seen B.I.D during the week and one time per day over the weekend as an inpatient for light strengthening of the upper and lower extremities, transfers, and increasing his overall ambulatory distance. INITIAL TREATMENT: Treatment today consisted of the initial evaluation activities only. JUNE
--- NOTE | 2017-05-19 15:44 | PT.PROG ---
Progress Note Progress Note: S. Patient stated he would like to get out of his room this morning. O. Patient ambulated 50 feet to the wheelchair and was wheeled to the therapy gym where he performed seated marches, long arc quads, ball squeezes, heel toe raises and sit to stands all x 10. Patient was wheeled back to his room where he was left in bed with alarm and call light. A. Patient tolerated therapy well this morning, he is very weak and struggles to require frequent rest breaks to recover his o2 sats, he would continue to benefit from skilled therapy to increase strength and endurance. P. Continue POC.
--- NOTE | 2017-05-19 17:04 | PT.PROG ---
Progress Note Progress Note: S. Patient stated that he is feeling a little better this afternoon. O. Patient was wheeled to the therapy gym where he performed the nu-step x 7 minutes, then performed seated exercises in the form of; long arc quads, heel toe raises, marches, ball squeezes, clam shells, resisted knee flexion all x 10 bilaterally with 2# and red thera ban. Patient was wheeled back to his room where he was left in bed with alarm and call light. A. Patient tolerated exercises fair, he continues to struggle with weakness and endurance. He would continue to benefit from skilled therapy to increase strength and endurance. P. Continue POC.
--- NOTE | 2017-05-19 17:32 | OT.PROG ---
Progress Note Progress Note: S: pt was in good spirits when entering his room. He felt bad when he needed assistance toileting. O: pt was seen his room and needed assistance with toileting today and it was completed with mod-max A. He also needed max A with donning of LE cloths and shoes. He completed transfer approx 65 ft to elevator before needing a break and sitting in w/c where he was transferred the rest of way to therapy. His o2 remained anywhere from 88 to 92 during activity on 6 liters. A: pt needs mod -max A with all ADL's at this time. He did transfer further than he has in the last couple of days. He may benefit from some 24 hr care. P: continue per POC.
[2017-05-19] MEDS: ATORVASTATIN 40 MG TABLET PO SCH (20:47)
[2017-05-19] MEDS: traZODone Tab 50 MG TAB PO SCH (20:47)
[2017-05-19] MEDS: tiZANidine Tab 4 MG TAB PO PRN (20:53)
[2017-05-20] MEDS: methylPREDNISolone 125 MG/2 ML VIAL IVP SCH ×2 (03:21→14:58)
[2017-05-20] MEDS: Piperacillin/Tazobactam Inj 3.375 GM in Sodium Chloride 0.9% 100 ML IV SCH ×4 (03:21→20:39)
[2017-05-20] MEDS: LEVOTHYROXINE 125 MCG TABLET PO SCH (05:48)
[2017-05-20 05:55] LABS: BASOPHILS # (AUTO) 0 10*3/UL; BASOPHILS % (AUTO) 0 % (0-1); EOSINOPHILS # (AUTO) 0 10*3/UL; EOSINOPHILS % (AUTO) 0 % (0-8); Hematocrit [HCT] 31.2 % (42.0-52.0); Hemoglobin [HGB] 9.8 g/dL (14.0-18.0); LYMPHOCYTES # (AUTO) 0.41 10*3/uL; MEAN CORPUSCULAR HEMOGLOBIN 26.2 PG (27-31); MEAN CORPUSCULAR HGB CONC 31.4 g/dL (33-37); MEAN CORPUSCULAR VOLUME 83.4 FL (80-90); MEAN PLATELET VOLUME 9.7 FL (7.4-12.2); MONOCYTES # (AUTO) 0.45 10*3/UL (0.3-0.8); MONOCYTES % (AUTO) 3.2 % (5-15); NEUTROPHILS # (AUTO) 13.38 10*3/UL; NEUTROPHILS % (AUTO) 93.6 % (50-80); RED BLOOD COUNT 3.74 10^6/uL (4.70-6.10)
[2017-05-20 06:05] LABS: BLOOD UREA NITROGEN 29 mg/dL (7-22); BUN/CREATININE RATIO 32.22 (6-20)
[2017-05-20 06:07] LABS: PLATELET MORPHOLOGY COMMENT NORMAL MORPHOLOGY (NORM); RBC MORPHOLOGY COMMENT NORMAL MORPHOLOGY (NORM); WBC MORPHOLOGY COMMENT NORMAL MORPHOLOGY (NORM)
[2017-05-20] MEDS: ALBUTEROL SULFATE 2.5 MG/3 ML NEB SCH ×4 (06:19→19:13)
[2017-05-20] MEDS: PANTOPRAZOLE 40 MG TABLET PO SCH ×2 (07:16→15:53)
[2017-05-20] MEDS: LOSARTAN 25 MG TABLET PO SCH (08:30)
[2017-05-20] MEDS: ASPIRIN 81 MG (BABY) CHEWABLE TABLET PO SCH (08:31)
--- NOTE | 2017-05-20 09:58 | OTI REPORT ---
Thank you for the referral of Jimmie Raphael. He was seen on 05/19/17 for an occupational therapy evaluation secondary to generalized weakness. SUBJECTIVE: The patient is an 81-year-old male. Jimmie has been a recent patient at the hospital. He was transferred to [place] and then home with Home Health. He was then readmitted to the hospital. On 05/12/2017 the patient became very short of breath at home. He was diagnosed with interstitial lung disease, GERD, hypothyroidism, and hypertension. The patient states he has been very sleepy. He did state that the discussion between the doctor and him was that he does have a terminal illness, but it is treatable. The patient currently has his own apartment at [facility]. He states even though he would like to go back home, he knows that every time he goes back, he usually ends up back in the hospital and he is having increased difficulty caring for himself and meeting his oxygen and breathing needs. PAST MEDICAL HISTORY: Past medical history can be found in the patient's medical record. OBJECTIVE FINDINGS: General observations: Today the patient was sitting in chair upon the therapist' s arrival. Range of motion: The patient had active range of motion of his upper extremities that was within functional limits. Strength: Strength in the upper extremities was 4/5 for shoulder flexion, abduction, biceps flexion, triceps extension, and wrist flexion/extension. Endurance: The patient has very poor activity tolerance and he loses his breath very easily. Oxygen: The patient had to be on 6 liters of oxygen when completing exercises. Typically when he is at rest he is on 3 liters of oxygen. Activities of daily living: The patient requires min assist to dress self. He loses his breath very easily. He attempts breathing techniques but he is very labored and short of breath. ASSESSMENT: The patient would like to be able to walk better. He also agreed that his placement at home is probably not the safest or best situation for him at this point in time. He has been speaking to the physician about going on hospice or to the [facility]. The patient states he would really like to stay in [place]; however, his family wants him somewhere else in more of a hospice situation. We did discuss with the patient that he has a voice about his placement. The patient more than likely needs 24-hour care, especially to address his oxygen difficulties and breathing difficulties. Problem List: Decreased endurance Decreased activity tolerance Decreased strength Short-Term Goals: To be met by discharge from inpatient: Patient will increase upper extremity strength to 4+/5. Patient will be able to tolerate 10 minutes of functional activity to improve his activity tolerance. Patient will be able to stand for a minimum of 5 minutes to complete hygiene activities to increase his activity tolerance. Patient will be able to demonstrate pursed lipped breathing and energy conservation techniques during activities in therapy and throughout the day. Long-Term Goals: To be met following discharge from inpatient: Patient will be placed in a 24-hour care facility (either hospice or a skilled nursing) for the correct assistance levels that he needs. TREATMENT PLAN: Patient will be seen B.I.D during the week and one time per day over the weekend as an inpatient to address the above goals and objectives. INITIAL TREATMENT: Treatment today consisted of the initial evaluation followed by pursed lipped breathing. The patient performed red theraband resisted horizontal abduction, internal/external rotation, shoulder extension, triceps extension, and shoulder adduction followed by power web and digi-flex. MTDD
--- NOTE | 2017-05-20 14:36 | PT.PROG ---
Progress Note Progress Note: S. Patient stated that he is feeling alright this morning. O. Patient was wheeled to the therapy gym where he performed seated exercises in the form of; long arc quads, heel toe raises, ball squeezes, clam shells, resisted knee flexion, marches and sit to stands all x 10 bilaterally with 2# and red thera band, Patient used the nu-step x 5 minutes then ambulated 50 feet to the wheelchair and was wheeled back to his room where he was left in bed with alarm and call light. A. Patient continues to be weak however is increasing endurance at this time. Patient would continue to benefit from skilled therapy at this time. P. Continue POC.
--- NOTE | 2017-05-20 15:10 | PDOC(PROG) ---
Date and Time of Service: 05/20/2017 3:14 PM Interval History: Subjective Patient was laying in bed did not appear in distress. He said he feels better. Still coughing though. Breathing is improved overall he said he improved compared to when he came in. He did work with physical therapy earlier today. Objective : Data - Labs CBC and BMP: 05/20/17 04:49 05/20/17 04:49 Objective : Exam - General General Appearance: No Acute Distress, Cooperative, Thin - Head Head Exam: Normal Inspection - Eye Eye Exam: Normal Appearance - ENT ENT Exam: Normal Exam - Neck Neck Exam: Normal Inspection - Respiratory Additional Respiratory Exam Details: Few expiratory wheezes here. - Cardiovascular Cardiovascular Exam: RRR - GI/Abdominal GI/Abdominal Exam: Normal Bowel Sounds, Non Tender, Non Distended, Soft, No Organomegaly - Rectal Rectal Exam: Deferred - External Exam: Deferred - Extremities Extremities Exam: Normal Inspection - Back Back Exam: Normal Inspection - Neurological Neurological Exam: Alert, Oriented x 3, Speech Intact / Clear, Moves All Extremities Equally - Psychiatric Psychiatric Exam: Normal Affect Assessment and Plan - Patient Problems (1) Interstitial lung disease Current Visit: Yes Status: Acute Comment: I did speak with the son today, I did inform him that I spoke with the wireless sales manager in [place] and tried to get hold of the surgeon however I was unable to get hold of him. Did tell him that we trying a course of antibiotic and steroid and also I'll try to speak with the wireless sales manager in [place] to see there opinion about biopsy. I did speak with the wireless sales manager in [place] at [facility] [place] he suggested conservative management. He doesn't think a lung biopsy will alter the course of treatment. What I told the son we may consider consulting hospice in case there is recurrence of symptoms as the course probably would be a comfort care. Code(s): J84.9 - Interstitial pulmonary disease, unspecified (2) Gastroesophageal reflux disease Current Visit: No Status: Chronic Comment: Same medications (3) Hypothyroidism Current Visit: Yes Status: Acute Comment: Same med Code(s): E03.9 - Hypothyroidism, unspecified (4) Hypertension Current Visit: No Status: Acute Comment: Blood pressure is high, probably secondary to the steroid will switch to prednisone starting tomorrow. Code(s): I10 - Essential (primary) hypertension Qualifiers: Hypertension type: essential hypertension Qualified Code(s): I10 - Essential (primary) hypertension
--- NOTE | 2017-05-20 15:51 | OT.PROG ---
Progress Note Progress Note: Occupational Therapy S: Pt. reports that he is feeling somewhat better, however he reports some fatigue. Pt. agreed to participate in therapy session. O: Pt. was seen from 1340 to 1400 for skilled occupational therapy session. Pt. completed bed mobility to include moving from supine to sit at EOB with SBA and completed a functional transfer X 15' with CGA only, however pt. was SOB following transfer on 6 L O2. Pt. then completed the following UE strengthening with YTB for shoulder extension, horizontal abduction, internal rotation, external rotation and biceps curls 2 X 15 each. Pt. also completed 2# shoulder flexion and 2# ball functional reaching laterally X 10 each. A: Pt. tolerated therapy session fair with multiple rest breaks as needed. Pt. continues to demonstrate generalized weakness related to functional mobility and UE strengthening. P: Continue POC. MARKO Guaman/Baljit
[2017-05-20] MEDS: traZODone Tab 50 MG TAB PO SCH (20:39)
[2017-05-20] MEDS: ATORVASTATIN 40 MG TABLET PO SCH (20:39)
[2017-05-20] MEDS: tiZANidine Tab 4 MG TAB PO PRN (22:02)
[2017-05-21] MEDS: Piperacillin/Tazobactam Inj 3.375 GM in Sodium Chloride 0.9% 100 ML IV SCH ×4 (03:03→20:43)
[2017-05-21] MEDS: LEVOTHYROXINE 125 MCG TABLET PO SCH (05:28)
[2017-05-21] MEDS: ALBUTEROL SULFATE 2.5 MG/3 ML NEB SCH ×4 (06:47→19:01)
[2017-05-21] MEDS: PANTOPRAZOLE 40 MG TABLET PO SCH ×2 (07:18→17:31)
[2017-05-21] MEDS: ASPIRIN 81 MG (BABY) CHEWABLE TABLET PO SCH (08:37)
[2017-05-21] MEDS: predniSONE Tab 20 MG TAB PO SCH (08:37)
[2017-05-21] MEDS: LOSARTAN 25 MG TABLET PO SCH (08:37)
[2017-05-21] MEDS: NORMAL SALINE 10 ML SYRINGE FLUSH IVP PRN (10:10)
--- NOTE | 2017-05-21 10:59 | PDOC(PROG) ---
Date and Time of Service: 05/21/2017 10:56 AM Interval History: Subjective Patient is making improvement. He said his shortness of breath is improving. He is working with physical therapy. Yesterday I did tell him that I spoke with forming machine operator at the [facility] in [place] and his opinion was lung biopsy probably won't provide more information. He suggested may be a longer course of steroids this time. I did discuss with him that we will consult hospice so that he meets with them and see what services they provide. if he doesn't respond and his symptoms worsen or recurs then probably hospice involvement is warranted. Objective : Data - Labs CBC and BMP: 05/20/17 04:49 05/20/17 04:49 Objective : Exam - General General Appearance: No Acute Distress, Cooperative, Thin - Head Head Exam: Normal Inspection, Atraumatic - Eye Eye Exam: Normal Appearance - ENT ENT Exam: Normal Exam - Neck Neck Exam: Normal Inspection - Respiratory Additional Respiratory Exam Details: Few expiratory wheezes otherwise clear - Cardiovascular Cardiovascular Exam: RRR - GI/Abdominal GI/Abdominal Exam: Normal Bowel Sounds, Non Tender, Non Distended, Soft, No Organomegaly - Rectal Rectal Exam: Deferred - External Exam: Deferred - Extremities Extremities Exam: Normal Inspection - Back Back Exam: Normal Inspection - Neurological Neurological Exam: Alert, Oriented x 3, Normal Gait, Speech Intact / Clear, Moves All Extremities Equally - Psychiatric Psychiatric Exam: Normal Affect Assessment and Plan - Patient Problems (1) Interstitial lung disease Current Visit: Yes Status: Acute Comment: Continue the steroid, I switched him to oral steroid probably will give him a long course of tapering steroids. I think will continue antibiotics except will DC the Zithromax and probably stop it on Tuesday. Hospice were consulted and hopefully they will meet with him likely on Tuesday probably we can discharge him after that. I did speak yesterday with his [id number] and I informed her about the discussion with the forming machine operator and that we will consult hospice for him. Code(s): J84.9 - Interstitial pulmonary disease, unspecified (2) Gastroesophageal reflux disease Current Visit: No Status: Chronic Comment: Same med (3) Hypothyroidism Current Visit: Yes Status: Acute Comment: Same med Code(s): E03.9 - Hypothyroidism, unspecified (4) Hypertension Current Visit: No Status: Acute Comment: Same medication Code(s): I10 - Essential (primary) hypertension Qualifiers: Hypertension type: essential hypertension Qualified Code(s): I10 - Essential (primary) hypertension
--- NOTE | 2017-05-21 11:02 | PT.PROG ---
Progress Note Progress Note: S. Patient was agreeable to come down to the therapy gym. O. SBA to transfer from supine to the w/c and was then transported down to the therapy gym. He performed activities with 3# including Bilateral seated marches , LAQ, Minute drill 4 x1 Ball punches, sit to stands x 7, Nustep, transported back to his room A. patient is doing well and was having a good time in the gym, he is a anai to work with and works very hard. He shows progress in a little more strength and endurance today. P. 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
[2017-05-21] MEDS: traZODone Tab 50 MG TAB PO SCH (20:43)
[2017-05-21] MEDS: tiZANidine Tab 4 MG TAB PO PRN (20:43)
[2017-05-21] MEDS: ATORVASTATIN 40 MG TABLET PO SCH (20:43)
[2017-05-22] MEDS: Piperacillin/Tazobactam Inj 3.375 GM in Sodium Chloride 0.9% 100 ML IV SCH ×4 (03:07→20:39)
[2017-05-22] MEDS: LEVOTHYROXINE 125 MCG TABLET PO SCH (04:33)
[2017-05-22] MEDS: ALBUTEROL SULFATE 2.5 MG/3 ML NEB SCH ×4 (06:48→19:14)
[2017-05-22] MEDS: PANTOPRAZOLE 40 MG TABLET PO SCH ×2 (07:39→16:09)
[2017-05-22] MEDS: predniSONE Tab 20 MG TAB PO SCH (08:33)
[2017-05-22] MEDS: LOSARTAN 25 MG TABLET PO SCH (08:34)
[2017-05-22] MEDS: ASPIRIN 81 MG (BABY) CHEWABLE TABLET PO SCH (08:34)
--- NOTE | 2017-05-22 10:17 | PT.PROG ---
Progress Note Progress Note: S. The patient reported feeling good today and was ready to participate in therapy. O. Patient was helped into Shorts and made comfortable for the transfer. Ambulated 50 feet with CGA. He was placed into a w/c and transported down to the therapy gym. Nustep 7 min, Supine 2# SLR. Hip ABD/ADD, SAQ, Minute drill in sitting, clams with REd t-band, sit to stands, 3# DUMBELS FOR BICEP CURLS, 4# Ball raise, x 10, red t band around the clocks, standing with walker, hip ext flex, add/abd, Red t band for shoulder ext, flex, abd, Rows. Ambulated again x 25 feet with CGA and was transported back to his room and made comfortalbe with nursing call and nursing notified. A. The patient worked very hard today, He made progress in endurance and strength. P. 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
--- NOTE | 2017-05-22 16:16 | PDOC(PROG) ---
Date and Time of Service: 05/22/2017, 1612 Interval History: Patient states that he still short of breath. Worse with activities. He cannot get a deep breath. Chest x-ray and she showed worsening appearance of his right sided lung appearance. It is not clear if this is an interstitial process or an infectious process. By that I mean it is not clear if it's fibrosis. They told him in [place] that they would not biopsy him. And apparently on this last hospital stay he does not recall seeing a manager office services. The thought of hospice is in the works, but the patient states he is very confused about whether that is what he really wants. I spoke with Dr. Patel, and we agreed that the patient does have risk of aspiration, so we felt that it would be best to order a swallow evaluation and look at that possibility. He has not had a CT scan in a couple weeks, so it may be that he has progressive fibrosis that we might peanut picker on CT scan as well. Objective : Data - Labs CBC and BMP: 05/20/17 04:49 05/20/17 04:49 Objective : Exam - General General Appearance: No Acute Distress, Cooperative Additional General Exam Details: Vital Signs - Last Taken Temperature 99.0 F 05/22/17 13:00 Pulse Rate 60 05/22/17 15:56 Respiratory Rate 16 05/22/17 15:56 Blood Pressure 148/65 05/22/17 13:00 Pulse Ox 98 05/22/17 15:56 - Eye Eye Exam: No Scleral Icterus - ENT ENT Exam: Mucous Membranes Moist - Respiratory Respiratory Exam: Breathing Non Labored, Decreased Breath Sounds, Wheezes ( Mostly inspiratory) - Cardiovascular Cardiovascular Exam: RRR, No Murmur, No Clicks, No Gallops, No Rubs, No JVD - GI/Abdominal GI/Abdominal Exam: Normal Bowel Sounds, Non Tender, Non Distended, Soft - Extremities Extremities Exam: No Edema Present, No Cyanosis Present, Clubbing Present - Neurological Neurological Exam: Alert, Oriented x 3, No Facial Droop, Speech Intact / Clear, Moves All Extremities Equally Assessment and Plan - Patient Problems (1) Interstitial lung disease Current Visit: Yes Status: Suspected Code(s): J84.9 - Interstitial pulmonary disease, unspecified (2) Hypertension Current Visit: Yes Status: Chronic Code(s): I10 - Essential (primary) hypertension Qualifiers: Hypertension type: essential hypertension Qualified Code(s): I10 - Essential (primary) hypertension (3) Gastroesophageal reflux disease Current Visit: Yes Status: Chronic Qualifiers: Esophagitis presence: esophagitis presence not specified Qualified Code(s) : K21.9 - Gastro-esophageal reflux disease without esophagitis (4) Hypothyroidism Current Visit: Yes Status: Acute Code(s): E03.9 - Hypothyroidism, unspecified Qualifiers: Hypothyroidism type: acquired Qualified Code(s): E03.9 - Hypothyroidism, unspecified (5) History of pulmonary embolism Current Visit: Yes Status: Resolved Code(s): Z86.711 - Personal history of pulmonary embolism (6) Coronary artery disease Current Visit: Yes Status: Chronic Code(s): I25.10 - Atherosclerotic heart disease of algaaciq coronary artery without angina pectoris Qualifiers: Coronary Disease-Associated Artery/Lesion type: algaaciq artery Associated angina: without angina - Assessment / Plan Additional Assessment/Plan Details: Blood sugars are up somewhat steroids restarted. His most recent hemoglobin A1c in December 2016 does not reveal any evidence of diabetes. Continue Zosyn and steroids. I think it would be worthwhile to do Aspergillus studies as well. No phlegm production so it's very difficult to get a gram stain on sputum. I will repeat chest CT scan, noncontrast to look for worsening pulmonary fibrosis. I will also get a esophagram study with swallow evaluation with OT. We'll discuss over the next day or 2 what the best option might be. It may be best to get him down to [place] for a pulmonology evaluation. Hospice may also be a possibility, but I think the other question to answer is whether or not it might be beneficial to trial antifungals. Discussed with patient. He states to me overall he is fairly confused about his best option, and really wants to think things over
--- NOTE | 2017-05-22 17:43 | DI ---
EXAM: CT Chest Without Intravenous Contrast CLINICAL HISTORY: question worsening pulmonary fibrosis TECHNIQUE: Axial computed tomography images of the chest without intravenous contrast. COMPARISON: CT of the chest dated 05/12/17. FINDINGS: Lungs: Interstitial fibrotic changes scattered, predominantly in the right lung, not significant changed compared to the prior CT exam. Diffuse emphysematous changes predominantly throughout the left upper lung, unchanged. Pleural space: Unremarkable. No pneumothorax. No significant effusion. Heart: Coronary artery calcifications. No significant pericardial effusion. Bones/joints: Chronic appearing anterior compression deformity of T12 with approximately 50% anterior height loss, unchanged. Multilevel degenerative changes throughout the visualized spine. No dislocation. Soft tissues: Unremarkable. Vasculature: Atherosclerotic calcifications throughout the thoracic aorta without aneurysmal dilatation. Lymph nodes: Unremarkable. No enlarged lymph nodes. Upper abdomen: Diverticulosis in the ascending colon. Mild fecal retention throughout the visualized colonic loops. Status post cholecystectomy. IMPRESSION: 1. Pulmonary interstitial fibrotic changes, most prominent throughout the right lung, not significantly changed compared to the prior CT exam. 2. Diffuse emphysematous changes predominantly throughout the left upper lung, unchanged. 3. Chronic appearing anterior compression deformity of T12 with approximately 50% anterior height loss, unchanged.
[2017-05-22] MEDS: tiZANidine Tab 4 MG TAB PO PRN (20:39)
[2017-05-22] MEDS: ATORVASTATIN 40 MG TABLET PO SCH (20:39)
[2017-05-22] MEDS: traZODone Tab 50 MG TAB PO SCH (20:39)
[2017-05-22] MEDS ORDERED: Insulin Lispro Flexpen 300 UNIT/3 ML INSULN.PEN SUBCUT ONE ×2 (21:03→23:03)
[2017-05-22] MEDS ORDERED: Insulin Glargine SoloStar Inj 100 UNIT/ML INSULN.PEN SUBCUT ONE (23:02)
[2017-05-23] MEDS: Piperacillin/Tazobactam Inj 3.375 GM in Sodium Chloride 0.9% 100 ML IV SCH ×4 (03:48→20:47)
[2017-05-23] MEDS: LEVOTHYROXINE 125 MCG TABLET PO SCH (04:47)
[2017-05-23] MEDS: ALBUTEROL SULFATE 2.5 MG/3 ML NEB SCH ×4 (06:48→20:04)
[2017-05-23] MEDS: PANTOPRAZOLE 40 MG TABLET PO SCH ×2 (07:01→16:01)
[2017-05-23] MEDS: LOSARTAN 25 MG TABLET PO SCH (08:35)
[2017-05-23] MEDS: predniSONE Tab 20 MG TAB PO SCH (08:35)
[2017-05-23] MEDS: ASPIRIN 81 MG (BABY) CHEWABLE TABLET PO SCH (08:35)
[2017-05-23] MEDS: NORMAL SALINE 10 ML SYRINGE FLUSH IVP PRN ×2 (08:36→16:01)
--- NOTE | 2017-05-23 13:11 | OT.PROG ---
Progress Note Progress Note: S: pt states that he feels better today but not all the way better. He reports that he does not choke when he eats food. O: pt was seen in his room this morning and was supine in bed. He completed bed mobility Ind, donned Le pants Ind as well as shoes. He completed transfer approx 50 ft before sitting in w/c and transferring the rest of way to therapy. He completed UE exercises on barbara's with 2K in all ranges x15. He completed transfer to Nu step with mod Ind as it took him longer to complete. He then transferred back to mat table completing Ue with cane x1 with 3#. He completed 3 # box x1o with one break. He was returned to his room and donned Le sock with mod Ind as it took him longer to complete. A: pt participated much better today and increased his ability to complete ADL activity. His activity tolerance has improved slightly. P: continue per POC.
--- NOTE | 2017-05-23 13:35 | PDOC(PROG) ---
Date and Time of Service: 05/23/2017, 1330 Interval History: Follow-up the patient twice today. He has trouble catching a deep breath, but does not feel like his breathing is any worse today than it was a week ago or so. He was not sure initially over the last couple days which way to go in terms of continuing a workup or considering hospice, but he is very clear with us today that he does not want any further workup for possible pulmonary fibrosis in the right lung. I spoke with the patient's son and kxuqhyaf-[id number]-vak at bedside as well. They said they are in agreement with the patient discontinuing any further workup. They understand that this may mean hospice care and that the patient likely will of this lung process, suspected pulmonary fibrosis by CT appearance. The patient's [id number]-jm-gwn told me that when he did have bronchoscopy at [facility], they told him that this was actually pulmonary fibrosis in both lungs but right side significantly worse than the left. It has not changed appreciably on CT scan. The patient told myself, his son, and his [id number], that he did not want any further workup and he was ready to go home and he knew that that may mean the hospice program and that he would of this lung condition and he was okay with that. No complaints of nausea, vomiting, or other issues. Objective : Data - Labs CBC and BMP: 05/20/17 04:49 05/23/17 04:15 Objective : Exam - General General Appearance: No Acute Distress, Cooperative Additional General Exam Details: Vital Signs - Last Taken Temperature 98.4 F 05/23/17 11:07 Pulse Rate 62 05/23/17 11:11 Respiratory Rate 20 05/23/17 11:11 Blood Pressure 120/55 05/23/17 11:07 Pulse Ox 94 05/23/17 11:11 - Eye Eye Exam: No Scleral Icterus - ENT ENT Exam: Mucous Membranes Moist - Respiratory Respiratory Exam: Breathing Non Labored, Decreased Breath Sounds, Wheezes, Coarse Breath Sounds - Cardiovascular Cardiovascular Exam: RRR, No Murmur, No Clicks, No Gallops, No Rubs, No JVD - GI/Abdominal GI/Abdominal Exam: Normal Bowel Sounds, Non Tender, Non Distended, Soft - Extremities Extremities Exam: No Edema Present, No Cyanosis Present, Clubbing Present - Neurological Neurological Exam: Alert, Oriented x 3, No Facial Droop, Speech Intact / Clear, Moves All Extremities Equally - Psychiatric Psychiatric Exam: Normal Affect, Normal Mood Assessment and Plan - Patient Problems (1) Interstitial lung disease Current Visit: Yes Status: Suspected Code(s): J84.9 - Interstitial pulmonary disease, unspecified (2) Hypertension Current Visit: Yes Status: Chronic Code(s): I10 - Essential (primary) hypertension Qualifiers: Hypertension type: essential hypertension Qualified Code(s): I10 - Essential (primary) hypertension (3) Gastroesophageal reflux disease Current Visit: Yes Status: Chronic Qualifiers: Esophagitis presence: esophagitis presence not specified Qualified Code(s) : K21.9 - Gastro-esophageal reflux disease without esophagitis (4) Hypothyroidism Current Visit: Yes Status: Acute Code(s): E03.9 - Hypothyroidism, unspecified Qualifiers: Hypothyroidism type: acquired Qualified Code(s): E03.9 - Hypothyroidism, unspecified (5) History of pulmonary embolism Current Visit: Yes Status: Resolved Code(s): Z86.711 - Personal history of pulmonary embolism (6) Coronary artery disease Current Visit: Yes Status: Chronic Code(s): I25.10 - Atherosclerotic heart disease of [place] coronary artery without angina pectoris Qualifiers: Coronary Disease-Associated Artery/Lesion type: [place] artery Associated angina: without angina - Assessment / Plan Additional Assessment/Plan Details: This is unrelenting and progressive pulmonary fibrosis, right lung worse than left, and I would agree with the patient's decision that no further workup would be okay and that hospice would be okay at this point as well. I think he has less than 6 months to live. I do not know that a biopsy will prove anything but the diagnosis and still leave the same prognosis. He is not interested in going down to [place] to have this worked up further. His family, including his son and [id number]-tj-aic, are in agreement with this plan. They' re supportive of the patient's decision to go to hospice. Given that, I think it would be beneficial to do a swallow evaluation to do any diet consistency and/or swallowing exercises to help prevent aspiration and worsening pneumonia. They would like me to continue steroids indefinitely which I think is reasonable. The patient and his family would also like me to prescribe an antianxiety medication again, which I think is reasonable. He may likely get addicted, but if it helps him hold off air hunger and anxiety, that may be worth increasing his comfort level and letting him pass on at home in the hospice program. Home hospice seems reasonable to start out with, consult radha.
[2017-05-23] MEDS ORDERED: LORazepam 1 MG TABLET PO PRN (13:36)
--- NOTE | 2017-05-23 15:11 | OT.PROG ---
Progress Note Progress Note: S: pt reports he is ready for therapy. He stated he thinks he might go home on Tuesday. O: pt was seen in his room in the p.m. He completed bed mobility Ind and doffed socks and donned shoes Ind. He completed transfer approx 50 ft before having to sit in w/c and complete the rest of transfer to therapy. He completed 8 min on Ue bike to increase his activity tolerance. He completed UE strengthening activities with 3# dumb bells in shoulder flex, bicep curls and shoulder abd. He also completed shoulder press with 4# ball. He completed x10 stepping onto 2 # box to increase his ability to completed transfers. He completed transfer approx 60 ft before sitting and w/c and completing transfer the rest of way to his room. He doffed shoes Ind and donned socks Ind as well. He was left in bed with call light within reach and alarm. A: Pt participated well, he continues to need an increase in o2 while completing activities. He did increase his distance with transfers this afternoon. P: continue per POC.
--- NOTE | 2017-05-23 15:37 | PT.PROG ---
Progress Note Progress Note: S. Patient stated that he is feeling better this morning. O. Patient was wheeled to the therapy gym where he performed supine exercises in the form of; clam shells, ball squeezes, short arc quads, seated marches, long arc quads all x 15 bilaterally, minute drills 2# 4x1 minute, Patient ambulated 20 feet then used the nu-step x 10 minutes then ambulated 30 feet to the wheelchair and was wheeled back to his room where he was left in bed with alarm and call light. A. Patient tolerated therapy well this morning, he continues to struggle with weakness and fatigue, he requires frequent rest breaks to recover from fatigue. Patient would continue to benefit from skilled therapy to increase strength and mobility. P. Continue POC.
--- NOTE | 2017-05-23 15:49 | PT.PROG ---
Progress Note Progress Note: S. Patient stated that he is feeling good this afternoon. O. Patient was wheeled to the therapy gym where he ambulated 40 feet to the mat table then performed seated exercises in the form of; long arc quads, heel toe raises, marches, ball squeezes, clam shells, resisted knee flexion all x 15 bilaterally and 2# weights Patient performed minute drills 3x1 minute, sit to stands x 5. Patient was left with OT for further therapy. A. Patient tolerated therapy well this afternoon, he continues to struggle with weakness and fatigue, he was able to perform more exercise this afternoon however continues to require frequent rest breaks to recover from fatigue. He would continue to benefit from skilled therapy to increase endurance and strength. Patient would continue to benefit from skilled therapy at this time. P. Continue POC.
[2017-05-23] MEDS ORDERED: Insulin Lispro Flexpen 300 UNIT/3 ML INSULN.PEN SUBCUT ONE (20:24)
[2017-05-23] MEDS: ATORVASTATIN 40 MG TABLET PO SCH (20:47)
[2017-05-23] MEDS: traZODone Tab 50 MG TAB PO SCH (20:47)
[2017-05-23] MEDS: Insulin Glargine SoloStar Inj 100 UNIT/ML INSULN.PEN SUBCUT SCH (20:48)
[2017-05-24] MEDS: Piperacillin/Tazobactam Inj 3.375 GM in Sodium Chloride 0.9% 100 ML IV SCH ×4 (03:12→20:30)
[2017-05-24] MEDS: LEVOTHYROXINE 125 MCG TABLET PO SCH (05:49)
[2017-05-24] MEDS: ALBUTEROL SULFATE 2.5 MG/3 ML NEB SCH ×4 (06:55→19:24)
[2017-05-24] MEDS: PANTOPRAZOLE 40 MG TABLET PO SCH ×2 (07:42→16:58)
[2017-05-24] MEDS: NORMAL SALINE 10 ML SYRINGE FLUSH IVP PRN ×2 (08:52→14:50)
[2017-05-24] MEDS: LOSARTAN 25 MG TABLET PO SCH (12:26)
[2017-05-24] MEDS: predniSONE Tab 20 MG TAB PO SCH (12:26)
[2017-05-24] MEDS: ASPIRIN 81 MG (BABY) CHEWABLE TABLET PO SCH (12:29)
--- NOTE | 2017-05-24 13:57 | PDOC(PROG) ---
Date and Time of Service: 05/24/2017 1355 Interval History: No chest pain. States shortness of breath is at baseline. Very tired today. He is ready to go to hospice. Looking forward to going home tomorrow. Swallow study was negative. No evidence of aspiration. Objective : Data - Labs CBC and BMP: 05/20/17 04:49 05/23/17 04:15 Objective : Exam - General General Appearance: No Acute Distress, Cooperative Additional General Exam Details: Vital Signs - Last Taken Temperature 98.4 F 05/24/17 11:01 Pulse Rate 56 L 05/24/17 11:01 Respiratory Rate 18 05/24/17 11:01 Blood Pressure 154/69 05/24/17 11:01 Pulse Ox 95 05/24/17 11:01 - Eye Eye Exam: No Scleral Icterus - ENT ENT Exam: Mucous Membranes Moist - Respiratory Respiratory Exam: Breathing Non Labored, Wheezes (Inspiratory), Coarse Breath Sounds - Cardiovascular Cardiovascular Exam: RRR, No Murmur, No Clicks, No Gallops, No Rubs, No JVD - GI/Abdominal GI/Abdominal Exam: Normal Bowel Sounds, Non Tender, Non Distended, Soft - Extremities Extremities Exam: No Edema Present, No Cyanosis Present, Clubbing Present - Neurological Neurological Exam: Alert, Oriented x 3, No Facial Droop, Speech Intact / Clear, Moves All Extremities Equally Assessment and Plan - Patient Problems (1) Interstitial lung disease Current Visit: Yes Status: Suspected Code(s): J84.9 - Interstitial pulmonary disease, unspecified (2) Hypertension Current Visit: Yes Status: Chronic Code(s): I10 - Essential (primary) hypertension Qualifiers: Hypertension type: essential hypertension Qualified Code(s): I10 - Essential (primary) hypertension (3) Gastroesophageal reflux disease Current Visit: Yes Status: Chronic Qualifiers: Esophagitis presence: esophagitis presence not specified Qualified Code(s) : K21.9 - Gastro-esophageal reflux disease without esophagitis (4) Hypothyroidism Current Visit: Yes Status: Acute Code(s): E03.9 - Hypothyroidism, unspecified Qualifiers: Hypothyroidism type: acquired Qualified Code(s): E03.9 - Hypothyroidism, unspecified (5) History of pulmonary embolism Current Visit: Yes Status: Resolved Code(s): Z86.711 - Personal history of pulmonary embolism (6) Coronary artery disease Current Visit: Yes Status: Chronic Code(s): I25.10 - Atherosclerotic heart disease of [place] coronary artery without angina pectoris Qualifiers: Coronary Disease-Associated Artery/Lesion type: [place] artery Associated angina: without angina - Assessment / Plan Additional Assessment/Plan Details: Home hospice tomorrow. No change to medications at this point. Reassuring that there is no evidence of aspiration, but no need to adjust dietary consistencies or add in therapies for this. Hopefully the patient can get a rest Today before going to hospice tomorrow as he is tired.
[2017-05-24] MEDS: ACETAMINOPHEN 325 MG TABLET PO PRN (14:51)
[2017-05-24] MEDS: ATORVASTATIN 40 MG TABLET PO SCH (20:30)
[2017-05-24] MEDS: traZODone Tab 50 MG TAB PO SCH (20:30)
[2017-05-24] MEDS: Insulin Glargine SoloStar Inj 100 UNIT/ML INSULN.PEN SUBCUT SCH (20:31)
[2017-05-24] MEDS ORDERED: Insulin Lispro Flexpen 300 UNIT/3 ML INSULN.PEN SUBCUT ONE (20:41)
[2017-05-24] MEDS ORDERED: Insulin Glargine SoloStar Inj 100 UNIT/ML INSULN.PEN SUBCUT SCH (21:00)
--- NOTE | 2017-05-24 22:35 | DI ---
XR ESOPHAGRAM,05/24/2017 11:02 AM: Clinical History: Pneumonia. Question aspiration. Previous Exam: None at this facility. Findings: Fluoroscopic support was provided to speech therapy for the performance of a modified barium swallow. The patient was able to clear solids, semisolid is and liquids without any aspiration during the exam . There was no pooling within the vallecula. Impression: No evidence of aspiration. Fluoroscopic support provided to speech therapy correlate with postprocedure no.
[2017-05-25] MEDS ORDERED: ALBUTEROL SULFATE 2.5 MG/3 ML NEB PRN (00:34)
[2017-05-25] MEDS: Piperacillin/Tazobactam Inj 3.375 GM in Sodium Chloride 0.9% 100 ML IV SCH ×2 (02:14→08:08)
[2017-05-25] MEDS: LEVOTHYROXINE 125 MCG TABLET PO SCH (05:29)
[2017-05-25] MEDS: ALBUTEROL SULFATE 2.5 MG/3 ML NEB SCH ×3 (07:03→15:00)
[2017-05-25] MEDS: PANTOPRAZOLE 40 MG TABLET PO SCH (07:33)
[2017-05-25] MEDS: ASPIRIN 81 MG (BABY) CHEWABLE TABLET PO SCH (08:06)
[2017-05-25] MEDS: predniSONE Tab 20 MG TAB PO SCH (08:06)
[2017-05-25] MEDS: LOSARTAN 25 MG TABLET PO SCH (08:06)
[2017-05-25 11:26] VITALS: BP 116/36; RESP 18; TEMP 98.4
--- NOTE | 2017-05-25 14:09 | DCSUMMARY ---
Hospitalization Summary Admit Date: 05/17/2017 Discharge Date: 05/25/17 Primary Diagnosis:: progressive and advanced pulmonary fibrosis, end-stage Hospital Course: This very pleasant 81-year-old male who's had assorted history consistent with pulmonary fibrosis. He came in originally in April 2017, and was eventually sent to [facility] [place] for further evaluation. There he had a bronchoscopy that revealed inflammation. There was some thought about doing a lung biopsy, but this ended up being canceled. The patient presented here again on the with worsening shortness of breath. As it became clear that he would no longer have lung biopsy, he was admitted with the suspicion of a pulmonary fibrosis/interstitial lung disease exacerbation. He was placed on Zosyn, steroids were resumed (they have been held in anticipation of a lung biopsy), and the patient was able to stabilize to a degree where we were able to get him home today. However, his lung function and symptoms have not improved to the point that they will significantly improve in the long run. He really is a hospice candidate and after home hospice evaluated him, extensive discussions with the patient regarding whether or not to pursue biopsy at a [facility], the patient and his son and his daughter- in-law told me that they did not want to pursue any further workup. The patient was offered to go to [facility] for further lung evaluation , but he was not interested in this. He does understand and his son and [id number] understand that he will from this process of pulmonary fibrosis. They are okay with that and ask for symptom treatment for primary symptoms of discomfort, shortness breath, and pain. Given that, the patient seemed to have some benefit from prednisone so we will continue that. We will also continue cough suppressant medications including opiates and breathing therapies with albuterol and DuoNeb's. I did do a swallow evaluation to make sure there was no aspiration. It was negative. We spoke about medications for other medical conditions and the patient would like to continue his home blood pressure medications and cholesterol medications and such at this time. I reviewed those medications with the patient's son is well. Today, no completes of chest pain, nausea or vomiting. Shortness of breath is "as good as it's going to get". Assessment and Plan: 1. As per discharge assessments noted 2. Disposition: Patient is discharged to home hospice 3. Condition on discharge, stable and improved. Prognosis is terminal 4. Diet: regular diet 5. Activities: resume normal activities and as tolerated 6. Follow-Up: 1. Only need to follow up if necessary. 2. 7. Medications at the Time of Discharge: Home Medications 3 Medication Instructions Recorded Confirmed Type Warfarin Sodium 5 - 7.5 mg PO DAILY #100 tab 05/12/16 10/14/16 Clinic aspirin 81 mg chewable tablet 81 mg PO QDAY tab 01/05/17 05/17/17 History atorvastatin 80 mg tablet 80 mg PO QDAY #90 tab 01/05/17 05/17/17 Rx losartan 25 mg tablet 25 mg PO QDAY #90 tab 01/05/17 05/17/17 Rx tizanidine 4 mg capsule 4 mg PO BEDTIME PRN #90 cap 01/05/17 05/17/17 History trazodone 50 mg tablet 150 mg PO QHS PRN #90 tab 01/05/17 05/17/17 History Dexlansoprazole [Dexilant] 60 mg PO DAILY 04/15/17 05/17/17 History Ascorbic Acid [Vitamin C] 1,000 mg PO DAILY #90 tab 05/08/17 05/17/17 Rx Levothyroxine Sodium [Synthroid] 125 mcg PO DAILY@0530 #90 tab 05/08/17 Rx Acetaminophen [Tylenol] 650 mg PO Q6H PRN tab 05/25/17 Rx Albuterol Neb Soln 0.083% 2.5 mg NEB RTQ6H PRN #120 vial.neb 05/25/17 Rx Albuterol/Ipratrop Neb Soln 3 ml NEB RTQ6H #120 ampul.neb 05/25/17 Rx [Duoneb Neb Soln] Insulin Glargine SoloStar Inj 20 unit SUBCUT BEDTIME #1 05/25/17 Rx [Lantus SoloStar Inj] insuln.pen Lorazepam 0.5 - 2 mg PO Q4H PRN #30 ml 05/25/17 Rx Morphine Liquid [MSIR Liquid] 5 - 20 mg BUCCAL Q4H PRN #30 ml 05/25/17 Rx guaiFENesin/Codeine Liquid 5 ml PO Q6H PRN #120 ml 05/25/17 Rx [Robitussin AC Liquid] predniSONE Tab [Deltasone Tab] 40 mg PO DAILY #60 tab 05/25/17 Rx 8. Time, care, counseling and coordination of care for this discharge is greater than 30 minutes. Exam - Vitals Vital Signs: Vital Signs Temperature 98.4 F Temperature Source Temporal Artery Scan Pulse Rate [Apical] 52 Pulse Rate [Pulse Oximeter] 69 Pulse Rate 60 Respiratory Rate 18 Blood Pressure [Right Arm] 116/36 Blood Pressure [Left Arm] 124/49 Blood Pressure 115/48 Pulse Ox 94 Oxygen Flow Rate 2 Oxygen Delivery Method Nasal Cannula Height 5 ft 7 in Weight 157 lb 6.4 oz - General General Appearance: No Acute Distress, Cooperative - Eye Eye Exam: POSITIVE: No Scleral Icterus - ENT ENT Exam: POSITIVE: Mucous Membranes Moist - Respiratory Respiratory Exam: POSITIVE: Breathing Non Labored, Normal to Percussion and Palpation, Coarse Breath Sounds - Cardiovascular Cardiovascular Exam: POSITIVE: RRR, No Murmur, No Clicks, No Gallops, No Rubs, No JVD - GI/Abdominal GI/Abdominal Exam: POSITIVE: Normal Bowel Sounds, Non Tender, Non Distended, Soft - Extremities Extremities Exam: POSITIVE: No Edema Present, No Cyanosis Present, Negative Chanelle's sign - Neurological Neurological Exam: POSITIVE: Alert, Oriented x 3, No Facial Droop, Speech Intact / Clear, Moves All Extremities Equally Data Peritnent Studies: 05/20/17 05/20/17 05/22/17 04:49 04:49 10:00 WBC 14.28 H Hgb 9.8 L Hct 31.2 L Plt Count 222 Neut % (Auto) 93.6 H Sodium 139 Potassium 3.8 Chloride 100 Carbon Dioxide 25 Anion Gap 14 BUN 29 H Creatinine 0.9 Glucose 336 H Calcium 8.2 L Aspergillus flavus Ab Pending Aspergill fumigatus Ab Pending A. fumigatus IgE Ab <0.35 Aspergillus niger Ab Pending 05/23/17 04:15 WBC Hgb Hct Plt Count Neut % (Auto) Sodium Potassium Chloride Carbon Dioxide Anion Gap BUN Creatinine Glucose 154 H Calcium Aspergillus flavus Ab Aspergill fumigatus Ab A. fumigatus IgE Ab Aspergillus niger Ab Patient Problems - Patient Problem List (1) Interstitial lung disease Current Visit: Yes Status: Suspected Code(s): J84.9 - Interstitial pulmonary disease, unspecified Category: Medical (2) Hypertension Current Visit: Yes Status: Chronic Code(s): I10 - Essential (primary) hypertension Qualifiers: Hypertension type: essential hypertension Qualified Code(s): I10 - Essential (primary) hypertension Category: Medical (3) Gastroesophageal reflux disease Current Visit: Yes Status: Chronic Qualifiers: Esophagitis presence: esophagitis presence not specified Qualified Code(s) : K21.9 - Gastro-esophageal reflux disease without esophagitis Category: Medical (4) Hypothyroidism Current Visit: Yes Status: Acute Code(s): E03.9 - Hypothyroidism, unspecified Qualifiers: Hypothyroidism type: acquired Qualified Code(s): E03.9 - Hypothyroidism, unspecified Category: Medical (5) History of pulmonary embolism Current Visit: Yes Status: Resolved Code(s): Z86.711 - Personal history of pulmonary embolism Category: Medical (6) Coronary artery disease Current Visit: Yes Status: Chronic Code(s): I25.10 - Atherosclerotic heart disease of [place] coronary artery without angina pectoris Qualifiers: Coronary Disease-Associated Artery/Lesion type: [place] artery Associated angina: without angina Category: Medical (7) COPD (chronic obstructive pulmonary disease) Current Visit: Yes Status: Chronic Code(s): J44.9 - Chronic obstructive pulmonary disease, unspecified Qualifiers: COPD type: emphysema Emphysema type: unspecified Qualified Code(s): J43.9 - Emphysema, unspecified Category: Medical
--- NOTE | 2017-05-25 14:59 | OT.PROG ---
Progress Note Progress Note: S: pt reported that he gets to go home sometime today. He was in a good mood today. O: pt was seen in his room and transferred approx 15 ft to hallways before sitting in w/c. He then was transferred downstairs in w/c. PT completed their portion of therapy before OT began. He completed UE exercises with RTB in all planes x20 to increase his UE strength. He then completed 3# box x10 with x1 loss of balance requiring Min A to prevent fall. He completed [address]ungees x10 on each angle. He needed min A to prevent fall on this activity as well. He completed toilet transfer approx 40 ft and completed toileting with min A. He also needed to [place] new shirt at this point which he donned Ind. He completed transfer back upstairs in w/c . He was placed back in his bed which he completed mobility INd. He was left upright in chair with call light within reach. A: pt's o2 was increased to 4 then 6 during activity. He completed lots of activities today. He may benefit from an out pt setting at this time. P: pt will d/c later today.
[2017-05-25 15:04] VITALS: O2SAT 93
--- NOTE | 2017-05-25 15:34 | PT.PROG ---
Progress Note Progress Note: S. Patient stated that he is feeling good this morning, he feels ready to go home. O. Patient ambulated 20 feet to the wheelchair and was wheeled to the therapy gym where he used the nu-step x 10 minutes, then ambulated 10 feet to the mat table and performed seated exercises in the form of; long arc quads, heel toe raises, marches, ball squeezes, clam shells, resisted knee flexion and sit to stands all x 10 bilaterally with 3# weights. Patient was left with OT for further therapy. A. Patient tolerated exercise well, he continues to struggle with weakness and shortness of breath however he is making gains with strength and endurance. P. Continue POC until discharge.
--- NOTE | 2017-05-26 09:30 | OTI REPORT ---
Thank you for the referral of Jimmie Raphael. He was seen on 05/24/17 for a modified barium swallow study. SUBJECTIVE: The patient is an 81-year-old male. The patient is having a lot of lung issues which is causing him to sometimes cough when he is eating. The patient does have a history of COPD and multiple hospital visits lately for lung conditions. PAST MEDICAL HISTORY: Past medical history can be found in the patient's medical record. OBJECTIVE FINDINGS: The patient came to radiology to complete the video fluoroscopy of his swallow. We started with the patient in a lateral view with thin liquids. The patient did well with no premature spillage. He did not demonstrate stasis or coding. He had a good swallow trigger reflex. He demonstrated no oral or nasal regurgitation. The patient had good hyoid/thyroid approximation as well as hyoid protraction and laryngeal elevation. He did not demonstrate penetration or aspiration. He had a good pharyngeal squeeze. There was little to no pooling in the valleculae and the piriformis sinuses. The UES opened well during all food textures and thin liquid today. He demonstrated good pharyngeal mechanism with fruit and ham as well as thin liquid after the food intake. After this we sat him in an anterior view. Again there was minimal demonstration of pooling or residuals in the piriformis sinuses or the valleculae. The patient was also tested with fruit and ham and this was followed by thin liquid just to make sure that he was not aspirating after food intake. ASSESSMENT: The patient does not demonstrate dysfunction at this point in time. He had good [employer] closure. The patient was within functional limits for hyolaryngeal excursion. He protected his airway. He had good pharyngeal contraction and UES opened well and let food and liquid boluses through without difficulty. The patient did not demonstrate penetration or aspiration symptoms today with food or liquid intake. He can remain on a regular diet with thin liquids. INITIAL TREATMENT: Treatment today consisted of the modified barium swallow study only. [facility] CENTERHarpreet
[2017-05-30 13:41] LABS: ASPERGILLUS FLAVUS ANTIBODY NEGATIVE; ASPERGILLUS FUMIGATUS ANTIBODY NEGATIVE; ASPERGILLUS NIGER ANTIBODY NEGATIVE
== END 2017-05-25 14:27 | disposition home or self-care (01) | DRG 198 ==
LOC: ER 11:23 → MED/SURG 14:06
PROVIDERS: ADMIT Internal Medicine; ATTEND Internal Medicine